=== PATIENT | male | born 1970 | race Caucasian/White ===

== ENCOUNTER 2017-03-02 20:35 | Emergency (ER) | payer BC, MEDICAID ==
[2017-03-02 21:01] VITALS: RESP 18
[2017-03-02 22:21] LABS: Basophils # (A) 0.1 k/uL (0-0.2); Basophils % (A) 1 %; CH 31.6; CHCM 34.2; Eosinophils # (A) 0.3 k/uL (0-0.7); Eosinophils % (A) 4 %; HCT 43.3 % (39.0-53.0); HDW 2.82; HGB 14.4 gm/dL (13.0-17.5); Luc # (Auto) 0.19; Luc % (Auto) 3; Lymphocytes # (A) 1.7 k/uL (1.0-4.8); Lymphocytes % (A) 25 %; MCH 30.9 pg (25.0-35.0); MCHC 33.2 g/dL (31.0-37.0); MCV 92.9 fL (80.0-100.0); Mean Platelet Volume 8.3; Monocytes # (A) 0.6 k/uL (0-1.0); Monocytes % (A) 8 %; Neutrophils % (A) 59 %; RBC 4.66 m/uL (4.30-5.90); RDW 13.8 % (11.5-15.5); WBC 6.7 k/uL (3.8-10.6); WBC (Perox) 6.48
[2017-03-02 22:28] LABS: ALT 97 U/L (21-72); AST 56 U/L (17-59); Alkaline Phosphatase 102 U/L (38-126); Anion Gap 6 mmol/L; Blood Urea Nitrogen 20 mg/dL (9-20); Calcium 8.9 mg/dL (8.4-10.2); Carbon Dioxide 29 mmol/L (22-30); Chloride 103 mmol/L (98-107); Glucose 96 mg/dL (74-99); Magnesium 2.1 mg/dL (1.6-2.3); Non-African American GFR(MDRD) >60 (>60 ml/min/1.73 sqM); Potassium 3.9 mmol/L (3.5-5.1); Sodium 138 mmol/L (137-145); Total Bilirubin 0.9 mg/dL (0.2-1.3); Total Protein 6.9 g/dL (6.3-8.2)
--- NOTE | 2017-03-02 22:31 | ED ---
General Adult HPI - General Chief complaint: Extremity Problem,Nontraumatic Stated complaint: Jaw Pain / Heart Hx Time Seen by Provider: 03/02/17 21:10 Source: patient Mode of arrival: ambulatory Limitations: no limitations - History of Present Illness Initial comments: 's patient is a 46-year-old man who presents to be evaluated for pains that were in his jaw, started a couple of hours ago. He was concerned because the pains reminded him of what he was experiencing when his thoracic aortic aneurysm was found. The patient also states he was having aches in both arms and both legs. The patient denies chest pain, diaphoresis, dyspnea, nausea or vomiting, abdominal pain. -: hour(s) Quality: aching Consistency: now resolved Improves with: none Worsens with: none Associated Symptoms: denies other symptoms Treatments Prior to Arrival: none - Related Data Home Medications Medication Instructions Recorded Confirmed Testosterone [Androgel 1% Gel Pump] 1 pump TOPICAL Q48H 07/06/16 03/02/17 Warfarin [Coumadin] 5 mg PO SUSA 07/06/16 03/02/17 Ascorbic Acid [Vitamin C] 500 mg PO DAILY 03/02/17 03/02/17 Atorvastatin [Lipitor] 40 mg PO HS 03/02/17 03/02/17 Cholecalciferol [Vitamin D3] 1,000 unit PO DAILY 03/02/17 03/02/17 Enoxaparin Sodium [Lovenox] 100 mg SQ BID 03/02/17 03/02/17 HYDROcodone/APAP 7.5-325MG [[place] 1 tab PO Q6HR PRN 03/02/17 03/02/17 7.5-325] Meloxicam [Mobic] 15 mg PO DAILY 03/02/17 03/02/17 Metoprolol Tartrate [Lopressor] 12.5 mg PO BID 03/02/17 03/02/17 Omeprazole 40 mg PO HS 03/02/17 03/02/17 Warfarin Sodium [Coumadin] 6 mg PO MOTUWETHFR 03/02/17 03/02/17 Allergies Allergy/AdvReac Type Severity Reaction Status Date / Time phenobarbital AdvReac Rapid Verified 03/02/17 21:15 Heart Rate testosterone AdvReac Swelling Verified 03/02/17 21:15 Review of Systems ROS Statement: Those systems with pertinent positive or pertinent negative responses have been documented in the HPI. ROS Other: All systems not noted in ROS Statement are negative. Constitutional: Denies: fever, chills Respiratory: Denies: cough, dyspnea Cardiovascular: Denies: chest pain, palpitations, edema Gastrointestinal: Denies: abdominal pain, nausea, vomiting Genitourinary: Denies: dysuria, hematuria Musculoskeletal: Denies: back pain Skin: Denies: rash, lesions Neurological: Denies: headache, weakness, numbness Psychiatric: Denies: anxiety Past Medical History Past Medical History: Coronary Artery Disease (CAD), GERD/Reflux, Mitral Valve Prolapse (MVP) History of Any Multi-Drug Resistant Organisms: None Reported Past Surgical History: Back Surgery, Bariatric Surgery, Bladder Surgery, Cardiac Valve Replacement, Orthopedic Surgery Additional Past Surgical History / Comment(s): BILATERAL KNEE SURGERY GASTRIC BAND SURGERY Past Anesthesia/Blood Transfusion Reactions: No Reported Reaction Past Psychological History: Anxiety Smoking Status: Never smoker Past Alcohol Use History: Occasional Past Drug Use History: None Reported General Exam Limitations: no limitations General appearance: alert, in no apparent distress Head exam: Present: atraumatic, normocephalic Eye exam: Present: normal appearance. Absent: scleral icterus, conjunctival injection ENT exam: Present: normal oropharynx Neck exam: Present: normal inspection, full ROM Respiratory exam: Present: normal lung sounds bilaterally. Absent: respiratory distress, wheezes, rales, rhonchi, stridor Cardiovascular Exam: Present: regular rate, normal rhythm, normal heart sounds. Absent: systolic murmur, diastolic murmur, rubs, gallop GI/Abdominal exam: Present: soft. Absent: distended, tenderness, guarding, rebound, mass, pulsatile mass, hernia Extremities exam: Present: normal inspection, normal capillary refill. Absent: pedal edema, calf tenderness Back exam: Present: normal inspection. Absent: CVA tenderness (R), CVA tenderness (L) Neurological exam: Present: alert. Absent: motor sensory deficit Skin exam: Present: warm, dry, intact, normal color. Absent: rash Course Vital Signs 03/02/17 03/02/17 20:57 23:35 Temperature 99.2 F 98.4 F Pulse Rate 71 72 Respiratory 18 18 Rate Blood Pressure 131/79 127/91 O2 Sat by Pulse 99 97 Oximetry EKG Findings - EKG Results: EKG: interpreted by ERMD, WNL, sinus rhythm (Rate 67 bpm), normal axis, normal QRS, normal ST/T, no acute changes Medical Decision Making - Medical Decision Making Patient remains asymptomatic. We discussed the results. Recommended stress test and the patient would like to have this done as an outpatient. Discussed return parameters as well as appropriate follow-up care. - Lab Data Result diagrams: 03/02/17 22:08 03/02/17 22:08 Lab Results 03/02/17 03/02/17 03/02/17 Range/Units 22:08 22:08 22:08 WBC 6.7 (3.8-10.6) k/uL RBC 4.66 (4.30-5.90) m/uL Hgb 14.4 (13.0-17.5) gm/dL Hct 43.3 (39.0-53.0) % MCV 92.9 (80.0-100.0) fL MCH 30.9 (25.0-35.0) pg MCHC 33.2 (31.0-37.0) g/dL RDW 13.8 (11.5-15.5) % Plt Count 144 L (150-450) k/uL Neutrophils % 59 % Lymphocytes % 25 % Monocytes % 8 % Eosinophils % 4 % Basophils % 1 % Neutrophils # 4.0 (1.3-7.7) k/uL Lymphocytes # 1.7 (1.0-4.8) k/uL Monocytes # 0.6 (0-1.0) k/uL Eosinophils # 0.3 (0-0.7) k/uL Basophils # 0.1 (0-0.2) k/uL PT (9.0-12.0) sec INR (<1.1) APTT (22.0-30.0) sec D-Dimer (<0.60) mg/L FEU Sodium 138 (137-145) mmol/L Potassium 3.9 (3.5-5.1) mmol/L Chloride 103 (98-107) mmol/L Carbon Dioxide 29 (22-30) mmol/L Anion Gap 6 mmol/L BUN 20 (9-20) mg/dL Creatinine 0.84 (0.66-1.25) mg/dL Est GFR (MDRD) Af Amer >60 (>60 ml/min/1.73 sqM) Est GFR (MDRD) Non-Af >60 (>60 ml/min/1.73 sqM) Glucose 96 (74-99) mg/dL Calcium 8.9 (8.4-10.2) mg/dL Magnesium 2.1 (1.6-2.3) mg/dL Total Bilirubin 0.9 (0.2-1.3) mg/dL AST 56 (17-59) U/L ALT 97 H (21-72) U/L Alkaline Phosphatase 102 (38-126) U/L Total Creatine Kinase 108 (55-170) U/L CK-MB (CK-2) 1.3 (0.0-2.4) ng/mL CK-MB (CK-2) Rel Index 1.2 Troponin I <0.012 (0.000-0.034) ng/mL Total Protein 6.9 (6.3-8.2) g/dL Albumin 4.1 (3.5-5.0) g/dL 03/02/17 Range/Units 22:08 WBC (3.8-10.6) k/uL RBC (4.30-5.90) m/uL Hgb (13.0-17.5) gm/dL Hct (39.0-53.0) % MCV (80.0-100.0) fL MCH (25.0-35.0) pg MCHC (31.0-37.0) g/dL RDW (11.5-15.5) % Plt Count (150-450) k/uL Neutrophils % % Lymphocytes % % Monocytes % % Eosinophils % % Basophils % % Neutrophils # (1.3-7.7) k/uL Lymphocytes # (1.0-4.8) k/uL Monocytes # (0-1.0) k/uL Eosinophils # (0-0.7) k/uL Basophils # (0-0.2) k/uL PT 17.7 H (9.0-12.0) sec INR 1.8 (<1.1) APTT 29.9 (22.0-30.0) sec D-Dimer 0.46 (<0.60) mg/L FEU Sodium (137-145) mmol/L Potassium (3.5-5.1) mmol/L Chloride (98-107) mmol/L Carbon Dioxide (22-30) mmol/L Anion Gap mmol/L BUN (9-20) mg/dL Creatinine (0.66-1.25) mg/dL Est GFR (MDRD) Af Amer (>60 ml/min/1.73 sqM) Est GFR (MDRD) Non-Af (>60 ml/min/1.73 sqM) Glucose (74-99) mg/dL Calcium (8.4-10.2) mg/dL Magnesium (1.6-2.3) mg/dL Total Bilirubin (0.2-1.3) mg/dL AST (17-59) U/L ALT (21-72) U/L Alkaline Phosphatase (38-126) U/L Total Creatine Kinase (55-170) U/L CK-MB (CK-2) (0.0-2.4) ng/mL CK-MB (CK-2) Rel Index Troponin I (0.000-0.034) ng/mL Total Protein (6.3-8.2) g/dL Albumin (3.5-5.0) g/dL Disposition Clinical Impression: Mandible pain Disposition: HOME SELF-CARE Condition: Good Instructions: Chest Pain (ED) Referrals: Bar Bender DO [Primary Care Provider] - 1-2 days
[2017-03-02 22:35] LABS: INR 1.8 (<1.1); Partial Thromboplastin Time 29.9 sec (22.0-30.0); Prothrombin Time 17.7 sec (9.0-12.0)
[2017-03-02 22:37] LABS: Creatine Kinase 108 U/L (55-170)
[2017-03-02 22:51] LABS: Creatine Kinase MB 1.3 ng/mL (0.0-2.4); Troponin I <0.012 ng/mL (0.000-0.034)
--- NOTE | 2017-03-02 22:54 | XR ---
EXAM: XR Chest, 2 Views CLINICAL HISTORY: Reason: Chest Pain TECHNIQUE: Frontal and lateral views of the chest. COMPARISON: No relevant prior studies available. FINDINGS: Lungs: Mild infrahilar opacities. No consolidation. Pleural space: Unremarkable. No pneumothorax. Heart: Cardiac silhouette within normal limits. Mediastinum: Unremarkable. Bones/joints: Unremarkable. Other findings: Postsurgical changes in the chest and upper abdomen. Air-fluid level in the stomach. IMPRESSION: Mild infrahilar opacities, possible atelectasis. No consolidation.
[2017-03-02 23:37] VITALS: BP 127/91; PULSE 72; TEMP 98.4
== END 2017-03-03 00:07 | disposition home or self-care (01) ==
LOC: EC 20:35
DX: R68.84 Jaw pain (principal); I25.10 Atherosclerotic heart disease of native coronary artery without angina pectoris; K21.9 Gastro-esophageal reflux disease without esophagitis; F41.9 Anxiety disorder, unspecified; Z79.01 Long term (current) use of anticoagulants; Z79.899 Other long term (current) drug therapy; Z79.1 Long term (current) use of non-steroidal anti-inflammatories (NSAID); Z88.8 Allergy status to other drugs, medicaments and biological substances
CPT/HCPCS: 36415; 71020; 80053; 82550; 82553; 83735; 84484; 85025; 85379; 85610; 85730; 93005; 99284

== ENCOUNTER 2017-06-20 17:43 | Observation (INO) | payer BC, MEDICAID ==
[2017-06-20] MEDS ORDERED: ASPIRIN 81 MG PO STA (18:18)
[2017-06-20] MEDS ORDERED: NITROGLYCERIN SL TABS 0.4 MG TAB SUBLINGUAL PRN ×2 (18:18→19:18)
--- NOTE | 2017-06-20 18:24 | ED ---
Chest Pain HPI - General Chief Complaint: Chest Pain Stated Complaint: chest pain, Heart Hx Time Seen by Provider: 06/20/17 18:08 Source: patient Mode of arrival: ambulatory Limitations: no limitations - History of Present Illness Initial Comments: This is a 47-year-old male with a history of uric valve replacement and thoracic aortic aneurysm who presents emergency department for chest pain. He states that started approximately one hour ago. He describes it as a sharp sensation in the middle of his chest. States that nothing seems to make it better or worse. He was not doing anything in particular when it started. It does not feel like when he was diagnosed with his aortic aneurysm. He is currently on Coumadin. Last stress test was 2 years ago. He sees a Dr. Sarah out of [facility] for cardiology. Denies any shortness of breath. No history DVT or PE. No other complaints. - Related Data Home Medications Medication Instructions Recorded Confirmed Warfarin [Coumadin] 5 mg PO SUSA 07/06/16 06/20/17 Ascorbic Acid [Vitamin C] 500 mg PO DAILY 03/02/17 06/20/17 Atorvastatin [Lipitor] 40 mg PO HS 03/02/17 06/20/17 Cholecalciferol [Vitamin D3] 1,000 unit PO DAILY 03/02/17 06/20/17 HYDROcodone/APAP 7.5-325MG [[place] 1 tab PO Q6HR PRN 03/02/17 06/20/17 7.5-325] Meloxicam [Mobic] 15 mg PO DAILY 03/02/17 06/20/17 Metoprolol Tartrate [Lopressor] 12.5 mg PO BID 03/02/17 06/20/17 Omeprazole 40 mg PO HS 03/02/17 06/20/17 Warfarin Sodium [Coumadin] 6 mg PO MOTUWETHFR 03/02/17 06/20/17 ALPRAZolam [Xanax] 0.5 mg PO BID PRN 06/20/17 06/20/17 Testosterone [Androgel 1.62% Gel 1 applic TOPICAL MOWEFR 06/20/17 06/20/17 Pump] Allergies Allergy/AdvReac Type Severity Reaction Status Date / Time phenobarbital AdvReac Hyperactivi Verified 06/20/17 18:49 ty testosterone AdvReac Joint Pain Verified 06/20/17 18:49 with Injection only Review of Systems ROS Statement: Those systems with pertinent positive or pertinent negative responses have been documented in the HPI. ROS Other: All systems not noted in ROS Statement are negative. EKG Findings - EKG Comments: EKG Findings:: EKG showing normal sinus rhythm with a rate of 62. No abnormal ST segment changes or T-wave inversions. Intervals are normal. No ectopy. Past Medical History Past Medical History: Coronary Artery Disease (CAD), GERD/Reflux, Mitral Valve Prolapse (MVP) History of Any Multi-Drug Resistant Organisms: None Reported Past Surgical History: Back Surgery, Bariatric Surgery, Bladder Surgery, Cardiac Valve Replacement, Orthopedic Surgery Additional Past Surgical History / Comment(s): BILATERAL KNEE SURGERY GASTRIC BAND SURGERY Past Anesthesia/Blood Transfusion Reactions: No Reported Reaction Past Psychological History: Anxiety Smoking Status: Never smoker Past Alcohol Use History: Occasional Past Drug Use History: None Reported General Exam - General Exam Comments Initial Comments: Constitutional: Awake alert Appears comfortable Head: Normocephalic atraumatic Eyes: no conjunctival injection No scleral icterus EOMI Neck: No JVD Supple Heart: Regular rate rhythm normal S1-S2 no murmurs Lungs: Clear to auscultation bilaterally No wheezing No rales Abdomen: Soft nondistended nontender Extremities: Non edematous DP pulses intact Radial pulses intact Neuro: A&Ox3 No focal neurologic deficits Psych: Appropriate mood and affect Limitations: no limitations Course Vital Signs 06/20/17 18:10 Temperature 98.8 F Pulse Rate 66 Respiratory 18 Rate Blood Pressure 142/77 O2 Sat by Pulse 100 Oximetry Chest Pain MDM - MDM This is a 47-year-old male with a history of thoracic AAA and aortic valve replacement who presented for chest pain. The patient's chest pain was resolved after sublingual nitro. EKG was normal. Troponin negative times one. At this time I like to keep him for further cardiac evaluation and monitoring. Spoke with Dr. Carcamo who accepts the admission. The patient family were updated and agree with plan. Disposition Clinical Impression: Unstable angina Disposition: ADMITTED IP TO THIS HOSP Condition: Stable Referrals: Bar Bender DO [Primary Care Provider] - 1-2 days
[2017-06-20 18:35] LABS: Basophils % (A) 1 %; CHCM 35.4; Eosinophils # (A) 0.2 k/uL (0-0.7); Eosinophils % (A) 4 %; HCT 38.4 % (39.0-53.0); HDW 3.38; HGB 13.7 gm/dL (13.0-17.5); Luc # (Auto) 0.15; Luc % (Auto) 3; Lymphocytes # (A) 1.9 k/uL (1.0-4.8); Lymphocytes % (A) 36 %; MCH 31.4 pg (25.0-35.0); MCHC 35.7 g/dL (31.0-37.0); MCV 87.9 fL (80.0-100.0); Mean Platelet Volume 7.9; Monocytes # (A) 0.3 k/uL (0-1.0); Monocytes % (A) 6 %; Neutrophils # (A) 2.6 k/uL (1.3-7.7); Neutrophils % (A) 50 %; RBC 4.37 m/uL (4.30-5.90); WBC 5.2 k/uL (3.8-10.6); WBC (Perox) 5.14
[2017-06-20 18:43] LABS: INR 3.9 (<1.2); Partial Thromboplastin Time 40.4 sec (22.0-30.0); Prothrombin Time 38.2 sec (9.0-12.0)
[2017-06-20 18:49] LABS: ALT 42 U/L (21-72); AST 26 U/L (17-59); Alkaline Phosphatase 76 U/L (38-126); Anion Gap 9 mmol/L; Blood Urea Nitrogen 17 mg/dL (9-20); Calcium 8.6 mg/dL (8.4-10.2); Carbon Dioxide 26 mmol/L (22-30); Chloride 106 mmol/L (98-107); Glucose 99 mg/dL (74-99); Non-African American GFR(MDRD) >60 (>60 ml/min/1.73 sqM); Potassium 3.5 mmol/L (3.5-5.1); Sodium 141 mmol/L (137-145); Total Bilirubin 0.6 mg/dL (0.2-1.3); Total Protein 6.6 g/dL (6.3-8.2)
--- NOTE | 2017-06-20 18:51 | XR ---
EXAMINATION TYPE: XR chest 2V DATE OF EXAM: 06/20/2017 COMPARISON: March 02, 2017. HISTORY: Chest pain TECHNIQUE: Frontal and lateral views of the chest are obtained. FINDINGS: There is no focal air space opacity, pleural effusion, or pneumothorax seen. The cardiac silhouette size is within normal limits. The osseous structures are intact. Sternotomy is noted. Th ere is no change in appearance of the chest. Fusion hardware is identified in lumbar spine. IMPRESSION: No acute cardiopulmonary process.
[2017-06-20 19:11] LABS: Troponin I <0.012 ng/mL (0.000-0.034)
[2017-06-20] MEDS ORDERED: HEPARIN SODIUM,PORCINE/D5W PMX 25,000 UNIT in DEXTROSE/WATER 1 500ML.BAG IV SCH (19:30)
[2017-06-20] MEDS ORDERED: RX INFO: IV CONTRAST WAS GIVEN 1 EACH MISC MISCELLANE PRN (19:32)
--- NOTE | 2017-06-20 20:47 | CT ---
EXAMINATION TYPE: CT angio thoracic/abd aorta DATE OF EXAM: 06/20/2017 COMPARISON: NONE HISTORY: Chest pain. Hx of anuerysm. CT DLP: 2407.4 mGycm. Automated Exposure Control for Dose Reduction was Utilized. CONTRAST: CT scan of the thorax, abdomen and pelvis is performed with IV Contrast, patient injected with 100 mL of Omnipaque 300. MIP images and 3-D volume rendered images of the aorta were created at a separate workstation. FINDINGS: LUNGS: The lungs are grossly clear, there is no concerning parenchymal mass or nodule identified. T here is no pleural effusion or pneumothorax seen. The tracheobronchial tree is patent. MEDIASTINUM: There are no greater than 1 cm hilar or mediastinal lymph nodes. No pericardial effusi on is seen. Artificial aortic valve is noted. Ascending aorta is slightly aneurysmal measuring 4.4 c m in diameter. OTHER: A lap band is noted surrounding the fundus of the stomach. LIVER/GB: No significant abnormality is appreciated. PANCREAS: No significant abnormality is seen. SPLEEN: No significant abnormality is seen. ADRENALS: No significant abnormality is seen. KIDNEYS: No significant abnormality is seen. BOWEL: No significant abnormality is seen. GENITAL ORGANS: No gross abnormality seen. LYMPH NODES: No greater than 1cm abdominal or pelvic lymph nodes are appreciated. OSSEOUS STRUCTURES: There is been a sternotomy. There is fusion hardware noted along the left brow as pect at the level of T12-L2. OTHER: No significant additional abnormality is seen. Infrarenal abdominal aorta is unremarkable. The origins of the celiac, inferior mesenteric, and singl e bilateral renal arteries are unremarkable. There is no significant atherosclerotic plaque. IMPRESSION: Mild aneurysmal dilatation is noted of the ascending aorta. There is no evidence of disse ction.
[2017-06-20 21:54] VITALS: BMI 38.3
[2017-06-20] MEDS ORDERED: ALPRAZolam 0.5 MG TAB PO PRN (22:03)
[2017-06-20] MEDS ORDERED: HYDROcodone/APAP 7.5-325MG 1 EACH TAB PO PRN (22:03)
--- NOTE | 2017-06-20 22:41 | P.HPIM ---
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 He presented to the emergency room with multiple episodes of sharp substernal chest pain lasting a few seconds but REcurrent and RELIEVED after receiving nitroglycerin in the emergency room. No associated symptoms of shortness of breath or dizziness or palpitations orthopnea or paroxysmal nocturnal dyspnea no syncope or presyncope . No VISUAL disturbances or LIMB weakness numbness. Denied headache or facial numbness or ataxia OR dizziness. Denied exertional chest pain or shortness of breath lately. No fever or chills OR Cough OR FEVER The chest pain is localized without radiation to the back and neck. No active reflux symptoms and no chest pain or TRAUMA. Review of Systems Constitutional: Denies as per HPI, Denies anorexia, Denies chills, Denies chronic headaches, Denies chronic pain, Denies daytime sleepiness, Denies fatigue, Denies fever, Denies lethargy, Denies malaise, Denies night sweats, Denies poor appetite, Denies sweats, Denies weakness, Denies weight gain, Denies weight loss Eyes: denies blurred vision, denies pain, denies loss of vision Ears: deny: decreased hearing, ear discharge, earache, tinnitus Ears, nose, mouth and throat: Denies as per HPI, Denies ant. neck pain, Denies bleeding gums, Denies dental pain, Denies dysphagia, Denies epistaxis, Denies headache, Denies hoarseness, Denies mouth pain, Denies nasal congestion, Denies nasal discharge, Denies neck fullness/pressure, Denies neck lump, Denies nose pain, Denies odynophagia, Denies post-nasal drip, Denies sinus pain, Denies sinus pressure, Denies swelling in mouth, Denies swelling in throat, Denies sore throat, Denies vertigo, Denies voice changes Breasts: absent: gynecomastia Cardiovascular: Reports chest pain, Denies as per HPI, Denies claudication, Denies decreased exercise tolerance, Denies dyspnea on exertion, Denies edema, Denies high blood pressure, Denies irregular heart beat, Denies leg edema, Denies lightheadedness, Denies orthopnea, Denies palpitations, Denies paroxysmal nocturnal dyspnea, Denies phlebitis, Denies rapid heart beat, Denies shortness of breath, Denies syncope Respiratory: Denies as per HPI, Denies congestion, Denies cough, Denies cough with sputum, Denies dyspnea, Denies excessive sputum, Denies hemoptysis, Denies home oxygen, Denies pain, Denies pain on inspiration, Denies pleurisy, Denies respiratory infections, Denies sleep apnea, Denies snoring, Denies wheezing Gastrointestinal: Denies as per HPI, Denies abdominal pain, Denies belching, Denies bloating, Denies BRBPR, Denies change in bowel habits, Denies coffee ground emesis, Denies constipation, Denies diarrhea, Denies dyspepsia, Denies early satiety, Denies excessive gas, Denies heartburn, Denies hematemesis, Denies hematochezia, Denies indigestion, Denies jaundice, Denies lactose intolerance, Denies loss of appetite, Denies melena, Denies nausea, Denies vomiting Genitourinary: Denies as per HPI, Denies decreased libido, Denies difficulties fathering child, Denies discharge, Denies dysuria, Denies erectile dysfunction, Denies flank pain, Denies genital pain, Denies genital sores, Denies hematuria, Denies impotence, Denies incontinence, Denies kidney stones, Denies nocturia, Denies polyuria, Denies testicular lump, Denies testicular pain, Denies urinary frequency, Denies urinary hesitancy, Denies urinary retention Musculoskeletal: Denies as per HPI, Denies arm numbness/tingling, Denies atrophy , Denies fractures, Denies frequent falls, Denies gait dysfunction, Denies hot joints, Denies leg numbness/tingling, Denies limitation of motion, Denies loss of height, Denies low back pain, Denies morning stiffness, Denies muscle cramps , Denies muscle weakness, Denies myalgias, Denies neck pain, Denies neck stiffness, Denies prior amputations, Denies redness of joints, Denies shooting arm pain, Denies shooting leg pain Integumentary: Denies as per HPI, Denies acne, Denies boils, Denies brittle nails, Denies change in hair/nails, Denies color changes, Denies darkening of skin, Denies depigmentation, Denies dryness, Denies foot/leg ulcers, Denies growths, Denies hirsutism, Denies lesions, Denies onychomycosis, Denies pruritus , Denies rash, Denies sores, Denies striae, Denies unusual bruising, Denies wounds Neurological: Denies as per HPI, Denies aphasia, Denies ataxia, Denies balance difficulties, Denies burning pain, Denies change in mentation, Denies change in smell/taste, Denies change in speech, Denies confusion, Denies convulsions, Denies double vision, Denies gait dysfunction, Denies head injury, Denies headaches, Denies hearing difficulties, Denies lack of coordination, Denies loss of vision, Denies memory loss, Denies migraines, Denies motor disturbance, Denies numbness, Denies paralysis, Denies paresthesias, Denies seizures, Denies sensory deficit, Denies spasticity, Denies syncope, Denies tic, Denies tingling , Denies transient paralysis, Denies tremors, Denies vertigo, Denies weakness, Denies visual changes Psychiatric: Denies as per HPI, Denies anhedonia, Denies anxiety, Denies anxiety attacks, Denies change in appetite, Denies change in libido, Denies change in sleep habits, Denies confusion, Denies depression, Denies difficulty concentrating, Denies disorientation, Denies hallucinations, Denies hopelessness , Denies hypersomnia, Denies insomnia, Denies irritability, Denies memory loss, Denies mood swings, Denies paranoia, Denies sadness/tearfulness, Denies sleep disturbances, Denies suicidal ideation Endocrine: Denies as per HPI, Denies cold intolerance, Denies deepening of the voice, Denies excessive sweating, Denies excessive thirst, Denies fatigue, Denies flushing, Denies heat intolerance, Denies high blood sugars, Denies increase in ring/shoe/hat size, Denies low blood sugars, Denies nocturia, Denies palpitations, Denies polydipsia, Denies polyphagia, Denies polyuria, Denies proptosis, Denies recent glucocorticoid use, Denies thyroid mass, Denies weight change Hematologic/Lymphatic: Denies as per HPI, Denies easy bleeding, Denies easy bruising, Denies lymphadenopathy, Denies lymphedema, Denies thrombophilia Allergic/Immunologic: Denies as per HPI, Denies allergic rhinitis, Denies anaphylaxis, Denies angioedema, Denies gluten intolerance, Denies persistent infections, Denies seasonal allergies, Denies urticaria, Denies wheezing 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 History of Any Multi-Drug Resistant Organisms: None Reported Past Surgical History: Back Surgery, Bariatric Surgery, Bladder Surgery, Cardiac Valve Replacement, Orthopedic Surgery Additional Past Surgical History / Comment(s): BILATERAL KNEE SURGERY GASTRIC BAND SURGERY Past Anesthesia/Blood Transfusion Reactions: No Reported Reaction Smoking Status: Never smoker - Past Family History Mother Additional Family Medical History / Comment(s): B/L knee replacement Father Family Medical History: Diabetes Mellitus Additional Family Medical History / Comment(s): cardiac issues Medications and Allergies Home Medications Medication Instructions Recorded Confirmed Type Warfarin [Coumadin] 5 mg PO SUSA 07/06/16 06/20/17 History Ascorbic Acid [Vitamin C] 500 mg PO DAILY 03/02/17 06/20/17 History Atorvastatin [Lipitor] 40 mg PO HS 03/02/17 06/20/17 History Cholecalciferol [Vitamin D3] 1,000 unit PO DAILY 03/02/17 06/20/17 History HYDROcodone/APAP 7.5-325MG [[place] 1 tab PO Q6HR PRN 03/02/17 06/20/17 History 7.5-325] Meloxicam [Mobic] 15 mg PO DAILY 03/02/17 06/20/17 History Metoprolol Tartrate [Lopressor] 12.5 mg PO BID 03/02/17 06/20/17 History Omeprazole 40 mg PO HS 03/02/17 06/20/17 History Warfarin Sodium [Coumadin] 6 mg PO MOTUWETHFR 03/02/17 06/20/17 History ALPRAZolam [Xanax] 0.5 mg PO BID PRN 06/20/17 06/20/17 History Testosterone [Androgel 1.62% Gel 1 applic TOPICAL MOWEFR 06/20/17 06/20/17 History Pump] Allergies Allergy/AdvReac Type Severity Reaction Status Date / Time phenobarbital AdvReac Hyperactivi Verified 06/20/17 21:45 ty testosterone AdvReac Joint Pain Verified 06/20/17 21:45 with Injection only Physical Exam Vitals: Vital Signs Temp Pulse Resp BP Pulse Ox 06/20/17 20:52 87 16 108/59 100 06/20/17 18:10 98.8 F 66 18 142/77 100 Intake and Output 06/20/17 06/20/17 06/20/17 06:59 14:59 22:59 Other: Weight 124.7 kg Patient Weight 06/21/17 06:59 Weight 124.7 kg - Constitutional General appearance: cooperative, no acute distress - EENT Eyes: no abnormal pupil, no anicteric sclerae, no disc margins sharp, no edentulous, no EOMI, no PERRLA, no fundus normal, no photophobia, no dentition normal, no poor dentition, no ptosis, no scleral icterus, no normal appearance ENT: no hard of hearing, no hearing grossly normal, no NA/AT, no normal oropharynx, no other, no pharyngeal erythema, no thrush, no tonsillar exudates, no tonsillar swelling Ears: bilateral: normal - Neck Neck: no lymphadenopathy, normal ROM Carotids: bilateral: upstroke normal, bruit absent Thyroid: negative: normal size, enlarged, firm, nodule - Respiratory Respiratory: bilateral: CTA, negative: dullness, rales, rhonchi, wheezing - Cardiovascular Rhythm: regular Heart sounds: normal: S1, S2 Abnormal Heart Sounds: no systolic murmur, no diastolic murmur, no rub, no S3 Gallop, no S4 Gallop, no click, no other ankle Peripheral Edema: bilateral: 1+ - Gastrointestinal General gastrointestinal: no absent bowel sounds, no decreased bowel sounds, no distended, no hepatomegaly, no hyperactive bowel sounds, no normal bowel sounds , no organomegaly, no rigid, no scaphoid, no soft, no splenomegaly, no tenderness, no umbilical hernia, no ventral hernia - Integumentary Integumentary: no calor, no cellulitis, no cyanotic, no decreased turgor, no flushed, no jaundiced, no normal, no normal turgor, no pale, no rash, no ulcer - Neurologic Neurologic: CNII-XII intact, focal deficits - Musculoskeletal Musculoskeletal: no gait normal, no generalized weakness, no right sided weakness, no left sided weakness - Psychiatric Psychiatric: A&O x's 3, appropriate affect, intact judgment & insight Results CBC & Chem 7: 06/20/17 18:27 06/20/17 18:27 Labs: Abnormal Lab Results - Last 24 Hours (Table) 06/20/17 06/20/17 Range/Units 18:27 18:27 Hct 38.4 L (39.0-53.0) % PT 38.2 H (9.0-12.0) sec INR 3.9 H (<1.2) APTT 40.4 H (22.0-30.0) sec Chest x-ray: other (no acute process, no CHF) CT scan - chest: pending, other (No aortic dissection) Thrombosis Risk Factor Assmnt - Choose All That Apply Any of the Below Risk Factors Present?: No Each Factor Represents 1 point: Age 41-60 years Thrombosis Risk Factor Assessment Total Risk Factor Score: 1 Thrombosis Risk Factor Assessment Level: Low Risk Assessment and Plan (1) Atypical chest pain Narrative/Plan: Atypical S/P [facility] 2013 : WNL Observation Cardiology consult, ?? need for stress test Chest pain protocol , serial cardiac enzymes. EKG's Echocardiogram : assess LV fx resume home therapy with B Blockers , ASA. No need for Heparin Aortic dissection was ruled out Status: Acute (2) Thoracic aortic aneurysm without rupture Narrative/Plan: s/p Repair of aortic arch CT chest : No Dissection Status: Chronic (3) Status post mechanical aortic valve replacement Status: Acute (4) Status post mechanical aortic valve replacement Narrative/Plan: done due to AV stenosis due to Bicuspid AV On Coumadin < Therapeutic/ Echo to assess LV fx and AVR Status: Chronic Plan: Observe Chest pain protocol, cardiology consult Expect 23 hrs stay Time with Patient: Greater than 30
[2017-06-20 22:42] VITALS: RESP 18
[2017-06-21 00:52] LABS: Creatine Kinase 136 U/L (55-170)
[2017-06-21 01:05] LABS: Creatine Kinase MB 1.6 ng/mL (0.0-2.4); Troponin I <0.012 ng/mL (0.000-0.034)
[2017-06-21 06:58] LABS: Cholesterol 135 mg/dL (<200); HDL Cholesterol 39 mg/dL (40-60)
[2017-06-21 07:06] LABS: Creatine Kinase 104 U/L (55-170)
[2017-06-21 07:20] LABS: Creatine Kinase MB 1.6 ng/mL (0.0-2.4); Troponin I <0.012 ng/mL (0.000-0.034)
[2017-06-21] MEDS ORDERED: AMINOPHYLLINE 500 MG/20 ML VIAL IV PRN (08:26)
[2017-06-21] MEDS ORDERED: REGADENOSON 0.4 MG/5 ML SYRINGE IV ONE (08:26)
--- NOTE | 2017-06-21 08:30 | P.CRDCN ---
History of Present Illness History of present illness: Patient interviewed and examined Precordial chest discomfort for about an hour with normal cardiac enzymes 3. 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, CT results noted Plan 2-D echo and Doppler study to assess cardiac structure and function and aortic valve Lexiscan cardiac stress test If normal he may go home and follow-up with his primary mechanical system technician at [place] Please see full dictation by OSTOMY NURSE 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 History of Any Multi-Drug Resistant Organisms: None Reported Past Surgical History: Back Surgery, Bariatric Surgery, Bladder Surgery, Cardiac Valve Replacement, Orthopedic Surgery Additional Past Surgical History / Comment(s): BILATERAL KNEE SURGERY GASTRIC BAND SURGERY Past Anesthesia/Blood Transfusion Reactions: No Reported Reaction Smoking Status: Never smoker - Past Family History Mother Additional Family Medical History / Comment(s): B/L knee replacement Father Family Medical History: Diabetes Mellitus Additional Family Medical History / Comment(s): cardiac issues Medications and Allergies Home Medications Medication Instructions Recorded Confirmed Type Warfarin [Coumadin] 5 mg PO SUSA 07/06/16 06/20/17 History Ascorbic Acid [Vitamin C] 500 mg PO DAILY 03/02/17 06/20/17 History Atorvastatin [Lipitor] 40 mg PO HS 03/02/17 06/20/17 History Cholecalciferol [Vitamin D3] 1,000 unit PO DAILY 03/02/17 06/20/17 History HYDROcodone/APAP 7.5-325MG [[place] 1 tab PO Q6HR PRN 03/02/17 06/20/17 History 7.5-325] Meloxicam [Mobic] 15 mg PO DAILY 03/02/17 06/20/17 History Metoprolol Tartrate [Lopressor] 12.5 mg PO BID 03/02/17 06/20/17 History Omeprazole 40 mg PO HS 03/02/17 06/20/17 History Warfarin Sodium [Coumadin] 6 mg PO MOTUWETHFR 03/02/17 06/20/17 History ALPRAZolam [Xanax] 0.5 mg PO BID PRN 06/20/17 06/20/17 History Testosterone [Androgel 1.62% Gel 1 applic TOPICAL MOWEFR 06/20/17 06/20/17 History Pump] Allergies Allergy/AdvReac Type Severity Reaction Status Date / Time phenobarbital AdvReac Hyperactivi Verified 06/20/17 21:45 ty testosterone AdvReac Joint Pain Verified 06/20/17 21:45 with Injection only Physical Exam Vitals: Vital Signs Temp Pulse Pulse Resp BP BP BP 06/21/17 08:00 97.7 F 54 L 18 109/62 06/21/17 04:00 98.3 F 54 L 18 118/71 06/21/17 03:39 18 06/21/17 00:00 18 06/20/17 22:40 98.3 F 55 L 18 173/75 06/20/17 22:15 16 06/20/17 20:52 87 16 108/59 06/20/17 18:10 98.8 F 66 18 142/77 Pulse Ox 06/21/17 08:00 98 06/21/17 04:00 99 06/21/17 03:39 06/21/17 00:00 06/20/17 22:40 100 06/20/17 22:15 06/20/17 20:52 100 06/20/17 18:10 100 Intake and Output 06/20/17 06/21/17 06/21/17 22:59 06:59 14:59 Other: # Voids 1 Weight 124.7 kg Results 06/20/17 18:27 06/20/17 18:27 Cardiac Enzymes 06/20/17 06/20/17 06/21/17 Range/Units 18:27 18:27 00:01 AST 26 (17-59) U/L CK-MB (CK-2) 2.0 1.6 (0.0-2.4) ng/mL Troponin I <0.012 <0.012 (0.000-0.034) ng/mL 06/21/17 Range/Units 06:21 AST (17-59) U/L CK-MB (CK-2) 1.6 (0.0-2.4) ng/mL Troponin I <0.012 (0.000-0.034) ng/mL Coagulation 06/20/17 06/21/17 Range/Units 18:27 03:04 PT 38.2 H (9.0-12.0) sec APTT 40.4 H 59.1 H (22.0-30.0) sec Lipids 06/21/17 Range/Units 06:21 Triglycerides 111 (<150) mg/dL Cholesterol 135 (<200) mg/dL HDL Cholesterol 39 L (40-60) mg/dL CBC 06/20/17 Range/Units 18:27 WBC 5.2 (3.8-10.6) k/uL RBC 4.37 (4.30-5.90) m/uL Hgb 13.7 (13.0-17.5) gm/dL Hct 38.4 L (39.0-53.0) % Plt Count 161 (150-450) k/uL Comprehensive Metabolic Panel 06/20/17 Range/Units 18:27 Sodium 141 (137-145) mmol/L Potassium 3.5 (3.5-5.1) mmol/L Chloride 106 (98-107) mmol/L Carbon Dioxide 26 (22-30) mmol/L BUN 17 (9-20) mg/dL Creatinine 0.71 (0.66-1.25) mg/dL Glucose 99 (74-99) mg/dL Calcium 8.6 (8.4-10.2) mg/dL AST 26 (17-59) U/L ALT 42 (21-72) U/L Alkaline Phosphatase 76 (38-126) U/L Total Protein 6.6 (6.3-8.2) g/dL Albumin 4.2 (3.5-5.0) g/dL Current Medications Generic Name Dose Route Start Last Admin Trade Name Freq PRN Reason Stop Dose Admin Hydrocodone Bitart/Acetaminophen 1 each 06/20/17 22:03 [place] 7.5-325 PO Q6HR PRN Pain Alprazolam 0.5 mg 06/20/17 22:03 Xanax PO BID PRN Anxiety Aminophylline 100 mg 06/21/17 08:26 Aminophylline IV ONCE PRN Patient Response Ascorbic Acid 500 mg 06/21/17 09:00 Vitamin C PO DAILY [facility] Aspirin 325 mg 06/21/17 09:00 Aspirin PO DAILY [facility] Atorvastatin Calcium 40 mg 06/21/17 21:00 Lipitor PO HS [facility] Cholecalciferol 1,000 unit 06/21/17 09:00 Vitamin D3 PO DAILY [facility] Heparin Sodium/Dextrose 25,000 500 mls @ 19.95 mls/hr 06/20/17 19:30 21:04 unit/ IV Solution IV 8 units/kg/hr .Q24H [place] 19.95 mls/hr Protocol Administration 8 UNITS/KG/HR Meloxicam 15 mg 06/21/17 09:00 Mobic PO DAILY [facility] Metoprolol Tartrate 12.5 mg 06/21/17 09:00 Lopressor PO BID [facility] Miscellaneous Information 1 each 06/20/17 19:32 Rx Info: Iv Contrast Was Given MISCELLANE 06/22/17 19:32 DAILY PRN Per Protocol Nitroglycerin 0.4 mg 06/20/17 19:18 Nitrostat SUBLINGUAL Q5M PRN Chest Pain Pantoprazole Sodium 40 mg 06/21/17 21:00 Protonix PO HS [facility] Intake and Output 06/20/17 06/21/17 06/21/17 22:59 06:59 14:59 Other: # Voids 1 Weight 124.7 kg 06/20/17 18:27 06/20/17 18:27
[2017-06-21] MEDS ORDERED: ASPIRIN 325 MG TAB PO SCH (09:00)
[2017-06-21] MEDS ORDERED: MELOXICAM 7.5 MG TAB PO SCH (09:00)
[2017-06-21] MEDS ORDERED: CHOLECALCIFEROL 1,000 UNIT TAB PO SCH (09:00)
[2017-06-21] MEDS ORDERED: ASCORBIC ACID 500 MG TAB PO SCH (09:00)
[2017-06-21] MEDS ORDERED: METOPROLOL TARTRATE 12.5 MG TAB PO SCH (09:00)
--- NOTE | 2017-06-21 10:29 | P.CRDCN ---
History of Present Illness Consult date: 06/21/17 History of present illness: This is a pleasant 47-year-old male. Past medical history significant for mitral valve prolapse, bicuspid aortic valve resulting in ascending aortic aneurysm, aortic valve replacement and gastroesophageal reflux disease. He follows regularly with Dr. Sarah at [facility]. He presented to the hospital yesterday with complaints of sharp midsternal chest pain lasting approximately one hour while sitting on the couch watching TV. He can describe no aggravating factors. He states the pain persisted until he presented to the emergency room was given sublingual nitroglycerin. At that time the pain subsided. He's had no further episodes since admission. He denies any associated symptoms of shortness of breath, nausea, dizziness, palpitations or radiation of the pain. Records were requested from his primary student services representative to assess recent testing. EKG indicates a normal sinus mechanism with no acute ST or T-wave abnormalities. Chest x-ray is negative for any acute cardiopulmonary process. Review of Systems Extensive review of systems performed, negative except mentioned in HPI. 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 History of Any Multi-Drug Resistant Organisms: None Reported Past Surgical History: Back Surgery, Bariatric Surgery, Bladder Surgery, Cardiac Valve Replacement, Orthopedic Surgery Additional Past Surgical History / Comment(s): BILATERAL KNEE SURGERY GASTRIC BAND SURGERY Past Anesthesia/Blood Transfusion Reactions: No Reported Reaction Smoking Status: Never smoker - Past Family History Mother Additional Family Medical History / Comment(s): B/L knee replacement Father Family Medical History: Diabetes Mellitus Additional Family Medical History / Comment(s): cardiac issues Medications and Allergies Home Medications Medication Instructions Recorded Confirmed Type Warfarin [Coumadin] 5 mg PO SUSA 07/06/16 06/20/17 History Ascorbic Acid [Vitamin C] 500 mg PO DAILY 03/02/17 06/20/17 History Atorvastatin [Lipitor] 40 mg PO HS 03/02/17 06/20/17 History Cholecalciferol [Vitamin D3] 1,000 unit PO DAILY 03/02/17 06/20/17 History HYDROcodone/APAP 7.5-325MG [Rodney 1 tab PO Q6HR PRN 03/02/17 06/20/17 History 7.5-325] Meloxicam [Mobic] 15 mg PO DAILY 03/02/17 06/20/17 History Metoprolol Tartrate [Lopressor] 12.5 mg PO BID 03/02/17 06/20/17 History Omeprazole 40 mg PO HS 03/02/17 06/20/17 History Warfarin Sodium [Coumadin] 6 mg PO MOTUWETHFR 03/02/17 06/20/17 History ALPRAZolam [Xanax] 0.5 mg PO BID PRN 06/20/17 06/20/17 History Testosterone [Androgel 1.62% Gel 1 applic TOPICAL MOWEFR 06/20/17 06/20/17 History Pump] Allergies Allergy/AdvReac Type Severity Reaction Status Date / Time phenobarbital AdvReac Hyperactivi Verified 06/20/17 21:45 ty testosterone AdvReac Joint Pain Verified 06/20/17 21:45 with Injection only Physical Exam Vitals: Vital Signs Temp Pulse Pulse Resp BP BP Pulse Ox 06/21/17 04:00 98.3 F 54 L 18 118/71 99 06/21/17 03:39 18 06/21/17 00:00 18 06/20/17 22:40 98.3 F 55 L 18 173/75 100 06/20/17 22:15 16 06/20/17 20:52 87 16 108/59 100 06/20/17 18:10 98.8 F 66 18 142/77 100 Intake and Output 06/20/17 06/21/17 06/21/17 22:59 06:59 14:59 Other: # Voids 1 Weight 124.7 kg GENERAL: This is a 47-year-old male in no apparent distress at the time of my examination. HEENT: Head is atraumatic, normocephalic. Pupils are equal, round. Sclerae anicteric. Conjunctivae are clear. Mucous membranes of the mouth are moist. Neck is supple. There is no jugular venous distention. No carotid bruit is heard. LUNGS: Clear to auscultation no wheezes, rales or rhonchi. No chest wall tenderness is noted on palpation or with deep breathing. HEART: Regular rate and rhythm with systolic click consistent with valve replacement. No rubs or gallops. S1 and S2 heard. ABDOMEN: Soft, nontender. Bowel sounds are heard. No organomegaly noted. EXTREMITIES: 2+ peripheral pulses with no evidence of peripheral edema and no calf tenderness noted. NEUROLOGIC: Patient is awake, alert and oriented x3. Results 06/20/17 18:27 06/20/17 18:27 Cardiac Enzymes 06/20/17 06/20/17 06/21/17 Range/Units 18:27 18:27 00:01 AST 26 (17-59) U/L CK-MB (CK-2) 2.0 1.6 (0.0-2.4) ng/mL Troponin I <0.012 <0.012 (0.000-0.034) ng/mL 06/21/17 Range/Units 06:21 AST (17-59) U/L CK-MB (CK-2) 1.6 (0.0-2.4) ng/mL Troponin I <0.012 (0.000-0.034) ng/mL Coagulation 06/20/17 06/21/17 Range/Units 18:27 03:04 PT 38.2 H (9.0-12.0) sec APTT 40.4 H 59.1 H (22.0-30.0) sec Lipids 06/21/17 Range/Units 06:21 Triglycerides 111 (<150) mg/dL Cholesterol 135 (<200) mg/dL HDL Cholesterol 39 L (40-60) mg/dL CBC 06/20/17 Range/Units 18:27 WBC 5.2 (3.8-10.6) k/uL RBC 4.37 (4.30-5.90) m/uL Hgb 13.7 (13.0-17.5) gm/dL Hct 38.4 L (39.0-53.0) % Plt Count 161 (150-450) k/uL Comprehensive Metabolic Panel 06/20/17 Range/Units 18:27 Sodium 141 (137-145) mmol/L Potassium 3.5 (3.5-5.1) mmol/L Chloride 106 (98-107) mmol/L Carbon Dioxide 26 (22-30) mmol/L BUN 17 (9-20) mg/dL Creatinine 0.71 (0.66-1.25) mg/dL Glucose 99 (74-99) mg/dL Calcium 8.6 (8.4-10.2) mg/dL AST 26 (17-59) U/L ALT 42 (21-72) U/L Alkaline Phosphatase 76 (38-126) U/L Total Protein 6.6 (6.3-8.2) g/dL Albumin 4.2 (3.5-5.0) g/dL Current Medications Generic Name Dose Route Start Last Admin Trade Name Freq PRN Reason Stop Dose Admin Hydrocodone Bitart/Acetaminophen 1 each 06/20/17 22:03 Rodney 7.5-325 PO Q6HR PRN Pain Alprazolam 0.5 mg 06/20/17 22:03 Xanax PO BID PRN Anxiety Ascorbic Acid 500 mg 06/21/17 09:00 Vitamin C PO DAILY SHERMAN Aspirin 325 mg 06/21/17 09:00 Aspirin PO DAILY [facility] Atorvastatin Calcium 40 mg 06/21/17 21:00 Lipitor PO HS [facility] Cholecalciferol 1,000 unit 06/21/17 09:00 Vitamin D3 PO DAILY [facility] Heparin Sodium/Dextrose 25,000 500 mls @ 19.95 mls/hr 06/20/17 19:30 21:04 unit/ IV Solution IV 8 units/kg/hr .Q24H SHERMAN 19.95 mls/hr Protocol Administration 8 UNITS/KG/HR Meloxicam 15 mg 06/21/17 09:00 Mobic PO DAILY [facility] Metoprolol Tartrate 12.5 mg 06/21/17 09:00 Lopressor PO BID [facility] Miscellaneous Information 1 each 06/20/17 19:32 Rx Info: Iv Contrast Was Given MISCELLANE 06/22/17 19:32 DAILY PRN Per Protocol Nitroglycerin 0.4 mg 06/20/17 19:18 Nitrostat SUBLINGUAL Q5M PRN Chest Pain Pantoprazole Sodium 40 mg 06/21/17 21:00 Protonix PO HS SHERMAN Intake and Output 06/20/17 06/21/17 06/21/17 22:59 06:59 14:59 Other: # Voids 1 Weight 124.7 kg 06/20/17 18:27 06/20/17 18:27 EKG Interpretations (text) EKG indicates a normal sinus mechanism with no acute ST or T-wave abnormality. Assessment and Plan Plan: ASSESSMENT 1. Chest pain, atypical 2. History of ascending aortic aneurysm, 4.4cm per CT 06/20/2017 3. History of aortic valve replacement on long-term anticoagulation with Coumadin 4. Mitral valve prolapse 5. Gastroesophageal reflux disease, stable 6. Dyslipidemia maintained on Lipitor daily 40 mg by mouth. PLAN Obtain 2-D echo to assess cardiac structure and function as well as aortic valve. Lexiscan cardiac stress test. If this test is the patient may go home to follow-up with his primary student services representative. Thank you kindly for this consultation. Nurse Practitioner note has been reviewed, I agree with a documented findings and plan of care. Patient was seen and examined.
[2017-06-21 11:44] VITALS: TEMP 97.6
--- NOTE | 2017-06-21 12:20 | NM ---
EXAMINATION TYPE: NM stress lexiscan cardiolite DATE OF EXAM: 06/21/2017 COMPARISON: CTA aorta from yesterday. HISTORY: Chest pain per order. History of asthma and prior heart catheterization with CABG as well as history of angina and hypercholesteremia presents with chest pain per patient. TECHNIQUE: After the intravenous administration of 10.3 mCi Tc 99m Sestamibi - Cardiolite resting SP ECT images acquired 45 minutes post injection. The patient received 0.4mg Lexiscan, 24.9 mCi Tc 99m Sestamibi - Stress images obtained [address] injection FINDINGS: Review of stress and rest SPECT images demonstrates no distinct perfusion abnormality. Gated analysi s shows normal wall motion with an estimated left ventricular ejection fraction of 63 %. IMPRESSION: No scintigraphic evidence for reversible ischemia.
--- NOTE | 2017-06-21 15:01 | EST ---
EXERCISE STRESS AGE: 47 SEX: M HT: 71" WT: 274 PROTOCOL: Lexiscan Cardiolite Stress Test HEART RATE REST: 49 BLOOD PRESSURE REST: 103/67 MAXIMUM HEART RATE ACHIEVED: 82 MAXIMUM BLOOD PRESSURE: 111/49 85% MPHR: 146 100% MPHR: 172 CLINICAL INFORMATION: Patient came in with chest discomfort. He has a history of aortic valve replacement and a dilated aortic root. He underwent Lexiscan Cardiolite stress test. Baseline heart rate 49 beats per minute. Baseline blood pressure 103/67 mmHg. Baseline 12-lead ECG showed sinus rhythm with early repolarization abnormality. Patient received Lexiscan infusion per protocol. There was no ST-segment abnormalities noted, no arrhythmias noted. Blood pressure and heart rate remained stable. Nuclear portion of stress test will be reported separately. [id number] / IJN: [id number] /
--- NOTE | 2017-06-21 15:11 | ECHOF ---
Referral Reason:chest pain , AVR mechanical MEASUREMENTS -------- HEIGHT: 180.3 cm WEIGHT: 124.3 kg BP: 118/71 RVIDd: 3.5 cm (< 3.3) IVSd: 1.2 cm (0.6 - 1.1) LVIDd: 5.3 cm (3.9 - 5.3) LVPWd: 1.3 cm (0.6 - 1.1) IVSs: 1.7 cm LVIDs: 4.0 cm LVPWs: 1.7 cm LA Diam: 4.3 cm (2.7 - 3.8) LAESV Index (A-L): 46.15 ml/m Ao Diam: 4.2 cm (2.0 - 3.7) MV EXCURSION: 9.371 mm (> 18.000) MV EF SLOPE: 31 mm/s (70 - 150) EPSS: 1.3 cm MV E Jeff: 1.26 m/s MV DecT: 212 ms MV A Jeff: 0.64 m/s MV E/A Ratio: 1.98 AV maxP.31 mmHg AV meanP.29 mmHg RAP: 5.00 mmHg RVSP: 30.70 mmHg FINDINGS -------- Sinus rhythm. This was a technically good study. The left ventricular size is normal. There is mild concentric left ventricular hypertrophy. Overall left ventricular systolic function is normal with, an EF between 60 - 65 %. The right ventricle is mildly enlarged. LA is severely dilated >40 ml/m2 The right atrium is normal in size. Peak/mean gradient across the Aortic Valve is 23.31mmHg / 11.29mmHg. There is mild jagruti-prosthetic regurgitation of the bioprosthetic aortic valve. Normally functioning mechanical prosthetic valve. Mild mitral annular calcification present. There is trace to mild mitral regurgitation. Mild tricuspid regurgitation present. Right ventricular systolic pressure is normal at < 35 mmHg. Trace/mild (physiologic) pulmonic regurgitation. The aortic root is dilated measuring 4.2cm. Normal inferior vena cava with normal inspiratory collapse consistent with estimated right atrial pressure of 5 mmHg. There is no pericardial effusion. CONCLUSIONS -------- 1. Sinus rhythm. 2. There is mild jagruti-prosthetic regurgitation of the bioprosthetic aortic valve. 3. Normally functioning mechanical prosthetic valve. 4. Mild mitral annular calcification present. 5. There is trace to mild mitral regurgitation. 6. Mild tricuspid regurgitation present. 7. Right ventricular systolic pressure is normal at < 35 mmHg. 8. Trace/mild (physiologic) pulmonic regurgitation. 9. The aortic root is dilated measuring 4.2cm. 10. Normal inferior vena cava with normal inspiratory collapse consistent with estimated right atrial pressure of 5 mmHg. 11. There is no pericardial effusion. 12. This was a technically good study. 13. The left ventricular size is normal. 14. There is mild concentric left ventricular hypertrophy. 15. Overall left ventricular systolic function is normal with, an EF between 60 - 65 %. 16. The right ventricle is mildly enlarged. 17. LA is severely dilated >40 ml/m2 18. The right atrium is normal in size. 19. Peak/mean gradient across the Aortic Valve is 23.31mmHg / 11.29mmHg. DROP TESTER: Yuli Vega RDCS
[2017-06-21 16:02] VITALS: BP 126/81; PULSE 63
--- NOTE | 2017-06-21 18:44 | P.DS ---
Providers Date of admission: 06/20/17 19:20 Expected date of discharge: 06/21/17 Attending physician: Jairo Carcamo MD Consults: 06/20/17 19:18 Consult Physician Urgent Consulting Provider: [facility] Consult Reason/Comments: Chest Pain Do you want consulting provider notified?: Yes 06/20/17 22:08 Consult Physician Routine Consulting Provider: Nickolas Roche Consult Reason/Comments: chest pain Do you want consulting provider notified?: Yes Primary care physician: Bar Bender - Discharge Diagnosis(es) (1) Atypical chest pain Status: Acute Priority: High Onset Date: ~06/20/17 (2) Status post mechanical aortic valve replacement Continue with Coumadin INR goal 2.5-3.5 dose by his eyelet punch operator Status: Acute (3) Thoracic aortic aneurysm without rupture Status: Chronic Priority: Low Onset Date: ~12/02/12 Hospital Course: 47-year-old male with past medical history significant for valvular heart disease and ascending aortic aneurysm. Patient had mechanical aortic valve replacement and currently on lifelong Coumadin. Patient presented with sudden onset midsternal chest pain sharp in nature started during rest patient unable to identify any precipitating factors. He was taken to the emergency department sublingual nitro was given which has helped subsiding the pain. EKG showed no abnormalities cardiac enzymes were negative. Patient underwent CT angiogram the chest shows stable ascending aortic aneurysm and 2-D echo of the heart was performed. Cardiology evaluated the patient Lexiscan testing was done which was negative for ischemia. Patient was seen and examined today reports complete resolution of chest pain denies any trouble breathing and was eager to go home. He tolerated the procedures above. Constitutional: vital signs stable, Not in acute distress, pleasant, conversant Lungs: Clear to auscultation bilaterally, clear to percussion, normal respiratory effort no use of accessory muscles Cardiovascular: Regular rate and rhythm, systolic murmur with mechanical click over the aortic valve region, no gallops, no rubs, no peripheral edema Gastrointestinal: Soft, no tenderness to palpation, no palpable hepatosplenomegally, bowel sounds positive, no abdominal wall hernias Extremities: No digital cyanosis or clubbing, peripheral pulses palpable and equal over bilateral radial arteries and dorsalis pedis artery, no calf muscle tenderness Psych: Alert, oriented to place, person and time More than 35 minutes were spent discharging this patient, and more than 50% of the time was spent in counseling the patient and family and in coordinating care. Patient case was discussed with cardiology who cleared the patient for discharge Pertinent Studies: Lexiscan cardiac stress test was negative CT image of the chest showed mild aneurysmal dilatation of the ascending aorta without evidence of dissection 2-D echo showed left ventricular ejection fraction of 6065% Patient Condition at Discharge: Stable Plan - Discharge Summary New Discharge Prescriptions: New Nitroglycerin Sl Tabs [Nitrostat] 0.4 mg SUBLINGUAL Q5M PRN tab PRN Reason: Chest Pain Continue Warfarin [Coumadin] 5 mg PO SUSA HYDROcodone/APAP 7.5-325MG [Buxton 7.5-325] 1 tab PO Q6HR PRN PRN Reason: Pain Cholecalciferol [Vitamin D3] 1,000 unit PO DAILY Meloxicam [Mobic] 15 mg PO DAILY Atorvastatin [Lipitor] 40 mg PO HS Ascorbic Acid [Vitamin C] 500 mg PO DAILY Omeprazole 40 mg PO HS Metoprolol Tartrate [Lopressor] 12.5 mg PO BID Warfarin Sodium [Coumadin] 6 mg PO MOTUWETHFR ALPRAZolam [Xanax] 0.5 mg PO BID PRN PRN Reason: Anxiety Testosterone [Androgel 1.62% Gel Pump] 1 applic TOPICAL MOWEFR Discharge Medication List Warfarin [Coumadin] 5 mg PO SUSA 07/06/16 [History] Ascorbic Acid [Vitamin C] 500 mg PO DAILY 03/02/17 [History] Atorvastatin [Lipitor] 40 mg PO HS 03/02/17 [History] Cholecalciferol [Vitamin D3] 1,000 unit PO DAILY 03/02/17 [History] HYDROcodone/APAP 7.5-325MG [Buxton 7.5-325] 1 tab PO Q6HR PRN 03/02/17 [History] Meloxicam [Mobic] 15 mg PO DAILY 03/02/17 [History] Metoprolol Tartrate [Lopressor] 12.5 mg PO BID 03/02/17 [History] Omeprazole 40 mg PO HS 03/02/17 [History] Warfarin Sodium [Coumadin] 6 mg PO MOTUWETHFR 03/02/17 [History] ALPRAZolam [Xanax] 0.5 mg PO BID PRN 06/20/17 [History] Testosterone [Androgel 1.62% Gel Pump] 1 applic TOPICAL MOWEFR 06/20/17 [History ] Nitroglycerin Sl Tabs [Nitrostat] 0.4 mg SUBLINGUAL Q5M PRN tab 06/21/17 [Rx] Follow up Appointment(s)/Referral(s): Nickolas Roche MD [STAFF PHYSICIAN] - 1 Week (Appointment made for @ 6:15pm.) Bar Bender DO [Primary Care Provider] - 1-2 days Patient Instructions/Handouts: Chest Pain (GEN) Activity/Diet/Wound Care/Special Instructions: limited activity diet heart healthy Discharge Disposition: HOME SELF-CARE
[2017-06-21] MEDS ORDERED: PANTOPRAZOLE 40 MG TABLET PO SCH (21:00)
[2017-06-21] MEDS ORDERED: ATORVASTATIN 40 MG TAB PO SCH (21:00)
[2017-06-21] MEDS ORDERED: TESTOSTERONE TOPICAL SCH (22:03)
== END 2017-06-21 16:28 | disposition home or self-care (01) ==
LOC: EC 17:43 → 3SUR 19:20 → 3OBS 06-21 07:08
PROVIDERS: ADMIT Internal Medicine; ATTEND Internal Medicine
DX: R07.89 Other chest pain (principal); R07.2 Precordial pain; I34.1 Nonrheumatic mitral (valve) prolapse; Z95.2 Presence of prosthetic heart valve; I71.2 Thoracic aortic aneurysm, without rupture; Q23.1 Congenital insufficiency of aortic valve; E78.5 Hyperlipidemia, unspecified; K21.9 Gastro-esophageal reflux disease without esophagitis; F41.9 Anxiety disorder, unspecified; I25.10 Atherosclerotic heart disease of native coronary artery without angina pectoris; Z98.84 Bariatric surgery status; Z79.01 Long term (current) use of anticoagulants; Z79.899 Other long term (current) drug therapy; Z79.1 Long term (current) use of non-steroidal anti-inflammatories (NSAID); Z88.8 Allergy status to other drugs, medicaments and biological substances; Z83.3 Family history of diabetes mellitus
CPT/HCPCS: 99285; 96365; 96366 ×2; 36415; 93005; 93017; 93306; 80061; 80053; 82550; 82553 ×2; 83735; 84484 ×2; 85025; 85610; 85730 ×2; 71020; 75635; 71275; 78452; G0378 ×2; A9500; J1644; Q9967; J2785

== ENCOUNTER 2017-11-09 21:35 | Emergency (ER) | payer BC, MEDICAID ==
--- NOTE | 2017-11-09 22:40 | ED ---
SOB HPI - General Chief Complaint: Shortness of Breath Stated Complaint: SHOBHA Time Seen by Provider: 11/09/17 22:00 Source: patient Mode of arrival: ambulatory Limitations: no limitations - History of Present Illness Initial Comments: Oriented years old male comes in with a shortness of breath he had flulike symptoms since Wednesday, he had a fever or chills she had me been coughing and now he gets short-winded especially with exertion he denies chest pain but he does Admit to have a slight chest pain with deep breaths. He does have a history of for aortic valve disease a he has a prosthetic metallic valve in place now and he does have a history of asthma as well as dyslipidemia he has been pretty compliant with his Coumadin he has no history of coronary artery disease no history of any DVT or PE in the past. Review of system is unremarkable otherwise - Related Data Home Medications Medication Instructions Recorded Confirmed Warfarin [Coumadin] 5 mg PO SUMOSA 07/06/16 11/09/17 Ascorbic Acid [Vitamin C] 500 mg PO DAILY 03/02/17 11/09/17 Atorvastatin [Lipitor] 40 mg PO HS 03/02/17 11/09/17 Meloxicam [Mobic] 15 mg PO DAILY 03/02/17 11/09/17 Metoprolol Tartrate [Lopressor] 12.5 mg PO BID 03/02/17 11/09/17 Omeprazole 40 mg PO HS 03/02/17 11/09/17 Warfarin Sodium [Coumadin] 6 mg PO TUWETHFR 03/02/17 11/09/17 Testosterone [Androgel 1.62% Gel 1 applic TOPICAL MOWEFR 06/20/17 11/09/17 Pump] Albuterol Nebulized [Ventolin 2.5 mg INHALATION RT-QID PRN 11/09/17 11/09/17 Nebulized] Albuterol Sulfate [Proair Hfa] 2 puff INHALATION RT-Q6H PRN 11/09/17 11/09/17 Potassium 99 mg PO DAILY 11/09/17 11/09/17 Previous Rx's Medication Instructions Recorded Nitroglycerin Sl Tabs [Nitrostat] 0.4 mg SUBLINGUAL Q5M PRN tab 06/21/17 Albuterol Inhaler [Ventolin Hfa 2 puff INHALATION Q6HR PRN #1 11/10/17 Inhaler] inhaler Allergies Allergy/AdvReac Type Severity Reaction Status Date / Time phenobarbital AdvReac Hyperactivi Verified 11/09/17 21:54 ty testosterone AdvReac Joint Pain Verified 11/09/17 21:54 with Injection only Review of Systems ROS Statement: Those systems with pertinent positive or pertinent negative responses have been documented in the HPI. ROS Other: All systems not noted in ROS Statement are negative. 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 History of Any Multi-Drug Resistant Organisms: None Reported Past Surgical History: Back Surgery, Bariatric Surgery, Bladder Surgery, Cardiac Valve Replacement, Orthopedic Surgery Additional Past Surgical History / Comment(s): BILATERAL KNEE SURGERY GASTRIC BAND SURGERY, aortic valve replacement Past Anesthesia/Blood Transfusion Reactions: No Reported Reaction Past Psychological History: Anxiety Smoking Status: Never smoker Past Alcohol Use History: Occasional Past Drug Use History: None Reported - Past Family History Mother Additional Family Medical History / Comment(s): B/L knee replacement Father Family Medical History: Diabetes Mellitus Additional Family Medical History / Comment(s): cardiac issues General Exam - General Exam Comments Initial Comments: General: The patient is awake and alert, in no distress, and does not appear acutely ill. Skin: Skin is warm and dry and no rashes or lesions are noted. Eye: Pupils are equal, round and reactive to light, extra-ocular movements are intact; there is normal conjunctiva bilaterally. Ears, nose, mouth and throat: There are moist mucous membranes and no oral lesions. Neck: The neck is supple, there is no tenderness or JVD. Cardiovascular: There is a regular rate and rhythm. No murmur, rub or gallop is appreciated. Respiratory: To auscultation bilateral, some secretions in the airway is mild wheezing Gastrointestinal: Soft, non-distended, non-tender abdomen without masses or organomegaly noted. There is no rebound or guarding present. Bowel sounds are unremarkable. Back: There is no tenderness to palpation in the midline. There is no obvious deformity. Musculoskeletal: Normal ROM, no tenderness, There is no pedal edema. There is no calf tenderness or swelling. No cords were appreciated. Neurological: CN II-XII intact, Cranial nerves III through XII are intact. There are no obvious motor or sensory deficits. Coordination appears grossly intact. Speech is normal. Psychiatric: Cooperative, appropriate mood & affect, normal judgment. Limitations: no limitations Course Vital Signs 11/09/17 11/09/17 21:41 22:15 Temperature 98.3 F Pulse Rate 79 Respiratory 18 20 Rate Blood Pressure 143/79 O2 Sat by Pulse 95 Oximetry EKG is normal sinus rhythm ventricular rate is 73 GA interval is 164 QRS duration is 90 QT is QT/QTC 372/4 and Review of this EKG does not reveal any ST elevation or ST depression or any signs of any ischemic heart disease. Patient was reassessed at couple minutes after midnight care, his troponin, EKG , chest x-ray, d-dimer are all unremarkable he is on a Coumadin for his heart valve disease he status post aortic valve his INR is 3.6 and his flu a is positive since his symptoms have been ongoing for about 4 days now he is not a candidate for inpatient antiviral therapy and he is not any candidate for any antibacterial therapy either he be gone home on a Ventolin/albuterol inhaler 2 puffs every 6 hours and he will follow with his family doctor Medical Decision Making - Lab Data Result diagrams: 11/09/17 22:30 11/09/17 22:30 Lab Results 11/09/17 11/09/17 11/09/17 Range/Units 22:30 22:30 22:30 WBC 4.8 (3.8-10.6) k/uL RBC 4.41 (4.30-5.90) m/uL Hgb 13.9 (13.0-17.5) gm/dL Hct 41.0 (39.0-53.0) % MCV 92.9 (80.0-100.0) fL MCH 31.5 (25.0-35.0) pg MCHC 33.9 (31.0-37.0) g/dL RDW 13.6 (11.5-15.5) % Plt Count 127 L (150-450) k/uL Neutrophils % 64 % Lymphocytes % 22 % Monocytes % 7 % Eosinophils % 5 % Basophils % 1 % Neutrophils # 3.1 (1.3-7.7) k/uL Lymphocytes # 1.1 (1.0-4.8) k/uL Monocytes # 0.3 (0-1.0) k/uL Eosinophils # 0.2 (0-0.7) k/uL Basophils # 0.0 (0-0.2) k/uL PT (9.0-12.0) sec INR (<1.2) APTT (22.0-30.0) sec D-Dimer (<0.60) mg/L FEU Sodium 141 (137-145) mmol/L Potassium 3.9 (3.5-5.1) mmol/L Chloride 104 (98-107) mmol/L Carbon Dioxide 28 (22-30) mmol/L Anion Gap 9 mmol/L BUN 12 (9-20) mg/dL Creatinine 0.80 (0.66-1.25) mg/dL Est GFR (MDRD) Af Amer >60 (>60 ml/min/1.73 sqM) Est GFR (MDRD) Non-Af >60 (>60 ml/min/1.73 sqM) Glucose 106 H (74-99) mg/dL Calcium 8.5 (8.4-10.2) mg/dL Total Bilirubin 0.6 (0.2-1.3) mg/dL AST 43 (17-59) U/L ALT 48 (21-72) U/L Alkaline Phosphatase 116 (38-126) U/L Total Creatine Kinase 213 H (55-170) U/L CK-MB (CK-2) 1.6 (0.0-2.4) ng/mL CK-MB (CK-2) Rel Index 0.8 Troponin I 0.013 (0.000-0.034) ng/mL Total Protein 6.2 L (6.3-8.2) g/dL Albumin 3.8 (3.5-5.0) g/dL Influenza Type A RNA (Not Detectd) Influenza Type B (PCR) (Not Detectd) 11/09/17 11/09/17 Range/Units 22:30 22:46 WBC (3.8-10.6) k/uL RBC (4.30-5.90) m/uL Hgb (13.0-17.5) gm/dL Hct (39.0-53.0) % MCV (80.0-100.0) fL MCH (25.0-35.0) pg MCHC (31.0-37.0) g/dL RDW (11.5-15.5) % Plt Count (150-450) k/uL Neutrophils % % Lymphocytes % % Monocytes % % Eosinophils % % Basophils % % Neutrophils # (1.3-7.7) k/uL Lymphocytes # (1.0-4.8) k/uL Monocytes # (0-1.0) k/uL Eosinophils # (0-0.7) k/uL Basophils # (0-0.2) k/uL PT 32.0 H (9.0-12.0) sec INR 3.6 H (<1.2) APTT 39.0 H (22.0-30.0) sec D-Dimer 0.24 (<0.60) mg/L FEU Sodium (137-145) mmol/L Potassium (3.5-5.1) mmol/L Chloride (98-107) mmol/L Carbon Dioxide (22-30) mmol/L Anion Gap mmol/L BUN (9-20) mg/dL Creatinine (0.66-1.25) mg/dL Est GFR (MDRD) Af Amer (>60 ml/min/1.73 sqM) Est GFR (MDRD) Non-Af (>60 ml/min/1.73 sqM) Glucose (74-99) mg/dL Calcium (8.4-10.2) mg/dL Total Bilirubin (0.2-1.3) mg/dL AST (17-59) U/L ALT (21-72) U/L Alkaline Phosphatase (38-126) U/L Total Creatine Kinase (55-170) U/L CK-MB (CK-2) (0.0-2.4) ng/mL CK-MB (CK-2) Rel Index Troponin I (0.000-0.034) ng/mL Total Protein (6.3-8.2) g/dL Albumin (3.5-5.0) g/dL Influenza Type A RNA Detected H (Not Detectd) Influenza Type B (PCR) Not Detected (Not Detectd) Disposition Clinical Impression: Dyspnea, Influenza Disposition: HOME SELF-CARE Condition: Good Instructions: Acute Bronchitis (ED) Prescriptions: Albuterol Inhaler [Ventolin Hfa Inhaler] 2 puff INHALATION Q6HR PRN #1 inhaler PRN Reason: Shortness Of Breath Referrals: Bar Bender DO [Primary Care Provider] - 1-2 days
[2017-11-09 22:42] LABS: Basophils % (A) 1 %; Eosinophils # (A) 0.2 k/uL (0-0.7); Eosinophils % (A) 5 %; HGB 13.9 gm/dL (13.0-17.5); Lymphocytes # (A) 1.1 k/uL (1.0-4.8); Lymphocytes % (A) 22 %; MCH 31.5 pg (25.0-35.0); MCHC 33.9 g/dL (31.0-37.0); MCV 92.9 fL (80.0-100.0); Mean Platelet Volume 7.6; Monocytes # (A) 0.3 k/uL (0-1.0); Monocytes % (A) 7 %; Neutrophils # (A) 3.1 k/uL (1.3-7.7); Neutrophils % (A) 64 %; Platelet Count 127 k/uL (150-450); RBC 4.41 m/uL (4.30-5.90); RDW 13.6 % (11.5-15.5); WBC 4.8 k/uL (3.8-10.6)
[2017-11-09 22:54] LABS: D-Dimer 0.24 mg/L FEU (<0.60); INR 3.6 (<1.2)
[2017-11-09 22:57] LABS: ALT 48 U/L (21-72); AST 43 U/L (17-59); Albumin 3.8 g/dL (3.5-5.0); Alkaline Phosphatase 116 U/L (38-126); Anion Gap 9 mmol/L; Blood Urea Nitrogen 12 mg/dL (9-20); Calcium 8.5 mg/dL (8.4-10.2); Carbon Dioxide 28 mmol/L (22-30); Chloride 104 mmol/L (98-107); Glucose 106 mg/dL (74-99); Potassium 3.9 mmol/L (3.5-5.1); Sodium 141 mmol/L (137-145); Total Bilirubin 0.6 mg/dL (0.2-1.3); Total Protein 6.2 g/dL (6.3-8.2)
[2017-11-09 23:07] LABS: Creatine Kinase MB 1.6 ng/mL (0.0-2.4); Troponin I 0.013 ng/mL (0.000-0.034)
--- NOTE | 2017-11-09 23:18 | XR ---
EXAMINATION TYPE: XR chest 2V DATE OF EXAM: 11/09/2017 COMPARISON: 06/20/2017 HISTORY: Cough and congestion TECHNIQUE: Frontal and lateral views of the chest are obtained. FINDINGS: Heart and mediastinum are normal. Lungs are clear. Costophrenic angles are clear. There ar e sternal wires. There is cardiac valve prosthesis. Bony thorax appears intact. IMPRESSION: No active cardiopulmonary disease. No change.
[2017-11-10 00:27] VITALS: BP 131/77; PULSE 76; RESP 18; TEMP 97.5
== END 2017-11-10 00:25 | disposition home or self-care (01) ==
LOC: EC 21:35
DX: J11.1 Influenza due to unidentified influenza virus with other respiratory manifestations (principal); K21.9 Gastro-esophageal reflux disease without esophagitis; Z95.2 Presence of prosthetic heart valve; Z98.890 Other specified postprocedural states; Z79.01 Long term (current) use of anticoagulants; Z79.1 Long term (current) use of non-steroidal anti-inflammatories (NSAID); Z79.899 Other long term (current) drug therapy; Z88.8 Allergy status to other drugs, medicaments and biological substances
CPT/HCPCS: 36415; 71046; 80053; 82550; 82553; 84484; 85025; 85379; 85610; 85730; 87502; 93005; 99285

== ENCOUNTER → 2018-09-28 | Outpatient (CLI) | payer BC, MEDICAID | END | disposition home or self-care (01) | LOC: RADMRIMAIN 14:02 | PROVIDERS: ATTEND Family Medicine | DX: Z53.9 Procedure and treatment not carried out, unspecified reason (principal) ==

== ENCOUNTER → 2018-09-30 | Outpatient (CLI) | payer BC, MEDICAID ==
--- NOTE | 2018-10-01 21:59 | MR ---
EXAMINATION TYPE: MR lumbar spine wo con DATE OF EXAM: 09/30/2018 COMPARISON: None HISTORY: LBP, radiates into rt buttock, hx surgery 2013 CONTRAST: 0 mL intravenous Gadavist. TECHNIQUE: Multiplanar, multisequence images of the lumbar spine were acquired. FINDINGS: L5-S1: Disc height is preserved. No focal disc herniation or significant disc bulge is evident. No sp inal canal stenosis present. Mild left facet hypertrophy is present. Neural foramen are patent. L4-L5: Minimal disc bulge is present. No significant thecal sac contact is evident. Mild facet hypert rophy is present. No spinal canal stenosis or neural foraminal stenosis is present. L3-L4: No significant disc bulge is evident. No spinal canal stenosis or neural foraminal stenosis is present. L2-L3: Mild disc bulge has anterior thecal sac contact. No spinal canal stenosis is present. This may be slightly greater towards the right foramen. This may have right nerve root contact. Correlate wit h the radicular symptoms. Left foramen is widely patent. Postsurgical change with susceptibility bong fact is present within the lumbar spine. L1-L2: Minimal disc bulge is present. Foramen are patent. No spinal canal stenosis is present. Some f acet hypertrophy is present on the right with mild posterior lateral thecal sac compression. T12-L1: The L1 vertebral body has a compression deformity. No posterior wall displacement is evident. However, posterior wall has moderate anterior thecal sac flattening at the T12-L1 level. Facet hyper trophy is present. AP spinal canal stenosis is not present. No foraminal stenosis on the right is maya dent. Severe foraminal stenosis is present on the left. IMPRESSION: 1. There appears be an old compression deformity at T12 without posterior wall displacement. However, the superior endplate does have moderate anterior thecal sac flattening through this level. 2. Severe left foraminal stenosis T12-L1. 3. Disc bulging towards the right foramen at the L2-L3 level.
== END | disposition home or self-care (01) ==
LOC: RADMRIMAIN 19:58
PROVIDERS: ATTEND Family Medicine
DX: M99.73 Connective tissue and disc stenosis of intervertebral foramina of lumbar region (principal); M51.16 Intervertebral disc disorders with radiculopathy, lumbar region
CPT/HCPCS: 72148

== ENCOUNTER → 2018-10-18 | Outpatient (CLI) | payer BC, MEDICAID ==
--- NOTE | 2018-10-18 09:57 | MR ---
Thoracic spine MRI HISTORY: Pain, M 54.6, M 53.84 Multiplanar multisequence imaging through the thoracic spine. Correlation chest x-ray 11/09/2017 Multilevel Schmorl's node formation is present to include the superior endplates of T7, T8, inferior endplates of T7, T8 and T9, there is a small hemangioma present within the T9 vertebral body. Mild an terior wedging is present at T7, T8 and T9. No significant retropulsion, central canal stenosis, or f oraminal encroachment. There is a mild S-shaped spinal curvature. Susceptibility artifact partially o bscures the T12 vertebral body. Loss of disc height and signal is present at T12-L1 with endplate dis cogenic marrow signal change, loss of disc height signal present at intervertebral levels to include T5-6, T7-8, T8-9 and T9-10, T10-11. There is a mild kyphosis centered at T8. Facet arthropathy change s are present especially at the lower thoracic spine. Thoracic cord signal is normal. Minimal posteri or disc bulge is noted in the right paracentral location at T2-3, T3-4, T5-6 causing only minimal ant erior mass effect on the thecal sac. At T12-L1 there is posterior extension of endplate disc complex causing anterior mass effect on the thecal sac. Lateral extension encroaches towards the left neural foramen, question nerve sheath diverticulum on the left at T12-L1. 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 There is a hiatal hernia present. IMPRESSION: Degenerative disc disease, multilevel Schmorl's node formation, spinal curvature, facet a rthropathy. No significant spinal stenosis. Visualized thoracic aorta appears aneurysmal. Additional findings above.
== END | disposition home or self-care (01) ==
LOC: RADMRIMAIN 07:23
PROVIDERS: ATTEND Family Medicine
DX: M51.34 Other intervertebral disc degeneration, thoracic region (principal); M51.44 Schmorl's nodes, thoracic region; M43.8X4 Other specified deforming dorsopathies, thoracic region; M46.84 Other specified inflammatory spondylopathies, thoracic region; I71.2 Thoracic aortic aneurysm, without rupture; K44.9 Diaphragmatic hernia without obstruction or gangrene
CPT/HCPCS: 72146

== ENCOUNTER → 2018-11-17 | Outpatient (CLI) | payer BC, MEDICAID ==
--- NOTE | 2018-11-17 22:37 | MR ---
EXAMINATION TYPE: MR shoulder LT wo con DATE OF EXAM: 11/17/2018 COMPARISON: None HISTORY: Pain in left shoulder TECHNIQUE: Multiplanar, multisequence imaging of the left shoulder is performed without contrast. FINDINGS: Rotator Cuff: There is increased signal adjacent to the supraspinatus tendon. Small amount of fluid i s in the subacromial bursa extending towards the subdeltoid bursa. No signal transversing the suprasp inatus tendon is evident. There is fluid surrounding the subscapularis tendon. Small amount fluid is in the bicipital groove around the long head of the biceps tendon. Findings are suggestive for modera te tendinosis of the subscapularis, supraspinatus tendons and long head of the biceps tendon. Acromioclavicular Joint: Mild hypertrophy is present. Minimal inferior spurring is present. Glenohumeral Joint: Humerus articulates with the glenoid. Some thinning of the articular cartilage ma y be present. Labrum: There is some increased signal within the substance of the superior glenoid labrum. Some inte rnal derangement may be present. SLAP lesion could be considered. Communication through the articular surface may be seen on a few anterior images. Biceps Tendon: The long head of biceps is in normal location within bicipital groove. Small amount fl uid is present suggestive of mild tendinosis. Bone marrow signal: No focal abnormal marrow signal is appreciated. Other: Mild joint fluid is present. IMPRESSION: Findings suggestive for tendinosis of the subscapularis, supraspinatus and to a mild degree long head biceps tendon. Some osteoarthritic degenerative change may be present. Small tear of the anterior nieves perior glenoid labrum may be present.
== END ==
LOC: RADMRIMAIN 17:50
PROVIDERS: ATTEND Family Medicine
DX: M25.512 Pain in left shoulder (principal)

== ENCOUNTER → 2018-11-29 | Outpatient (CLI) | payer BC, MEDICAID ==
[2018-11-29 14:16] VITALS: BP 136/86; PULSE 79; RESP 16; TEMP 98.3; BMI 39.2
--- NOTE | 2018-11-29 17:13 | P.BASOAP ---
Subjective Progress Note Date: 11/29/18 Principal diagnosis: Morbid obesity Patient here today to discuss alternatives to LAP-BAND. Patient's band was recently emptied. He was having bad reflux. Doing better at this time without any reflux currently. Patient I previously discussed possible gastric bypass. He remains interested in that procedure. Objective - Vital Signs Vital signs: Vital Signs Temp 98.3 F 11/29/18 14:09 Pulse 79 11/29/18 14:09 Resp 16 11/29/18 14:09 BP 136/86 11/29/18 14:09 Pulse Ox Intake & Output 11/28/18 11/29/18 11/29/18 18:59 06:59 18:59 Weight 127.459 kg - Exam Abdomen: Soft, nontender, nondistended Assessment/Plan (1) Morbid obesity Narrative/Plan: Clinical scenario again discussed with the patient and his . Patient remains interested in gastric bypass. Will refer to Dr. Garcia for evaluation of gastric bypass. We'll have the billers's review the patient's insurance and determine coverage. Plan: Date: 11/29/18 Initial Weight: 127.459 kg Initial BMI: 39.2 Current Weight: 127.459 kg Current BMI: 39.2 Type of Surgery: Total Volume in Band: 5 Previous Volume: Volume Removed: Volume Added: Band Size:
== END | disposition home or self-care (01) ==
LOC: BARWHC3 13:49
PROVIDERS: ATTEND Surgery
DX: E66.01 Morbid (severe) obesity due to excess calories (principal); Z68.39 Body mass index [BMI] 39.0-39.9, adult
CPT/HCPCS: 99211

== ENCOUNTER → 2019-01-24 | Outpatient (CLI) | payer BC, MEDICAID ==
[2019-01-24 14:56] VITALS: BP 142/83; PULSE 69; TEMP 98.1; BMI 40.4
--- NOTE | 2019-01-24 16:01 | P.BASOAP ---
Subjective Progress Note Date: 01/24/19 Principal diagnosis: Morbid obesity Patient returns today after last visit in November. Patient had recent back surgery. Patient was thinking his band was emptied when he was seen last time in the office however upon reviewing recent records it looks like the patient's band was loosened from 6.9-6.7 mL last fall because of reflux symptoms. He and I discussed possibly converting to gastric bypass however the patient would like to hold off on that and retry the band at this time particularly given his recent back surgery. Patient says he feels little restriction. No heartburn currently. Objective - Vital Signs Vital signs: Vital Signs Temp 98.1 F 01/24/19 14:52 Pulse 69 01/24/19 14:52 Resp BP 142/83 01/24/19 14:52 Pulse Ox Intake & Output 01/23/19 01/24/19 01/24/19 18:59 06:59 18:59 Weight 127.913 kg - Exam Abdomen: Soft, nontender, nondistended Assessment/Plan (1) Morbid obesity Narrative/Plan: Will proceed with band adjustment at this time. Patient will contact me if he develops any recurrent heartburn symptoms. The patient's lap band port was palpated. The site was aseptically prepped. The Chen needle was advanced into the port. A total of 0.2 ml of fluid was added for a total of 6.9. Pressure was held and a sterile dressing was applied. Plan: Date: 01/24/19 Initial Weight: 127.459 kg Initial BMI: 40.3 Current Weight: 127.913 kg Current BMI: 40.4 Type of Surgery: Total Volume in Band: 6.9 Previous Volume: Volume Removed: Volume Added: 0.2 Band Size:
== END | disposition home or self-care (01) ==
LOC: BARWHC3 13:44
PROVIDERS: ATTEND Surgery
DX: E66.01 Morbid (severe) obesity due to excess calories (principal); Z68.41 Body mass index [BMI] 40.0-44.9, adult; Z98.84 Bariatric surgery status
CPT/HCPCS: 99212

== ENCOUNTER → 2019-03-14 | Outpatient (CLI) | payer BC, MEDICAID ==
--- NOTE | 2019-03-14 14:04 | P.BASOAP ---
Subjective Progress Note Date: 03/14/19 Principal diagnosis: Morbid obesity Patient doing well at this time. His band was filled in January from 6.7 up to 6.9. Doing well at this time. Denies heartburn. No dysphagia. Would like another 0.2 mL added. Objective - Exam Abdomen: Soft, nontender, nondistended Assessment/Plan (1) Morbid obesity Narrative/Plan: Patient doing well at this time. Requesting lap band fill. We'll add 0.2 for a total of 7.1 mL. Of note is tighter than where he had his GERD symptoms last year.The patient's lap band port was palpated. The site was aseptically prepped. The Chen needle was advanced into the port. A total of 0.2 ml of fluid was added. Pressure was held and a sterile dressing was applied. Plan: Date: Initial Weight: 127.459 kg Initial BMI: Current Weight: Current BMI: Type of Surgery: Total Volume in Band: 6.9 Previous Volume: Volume Removed: Volume Added: Band Size:
[2019-03-15 09:30] VITALS: BP 145/86; PULSE 74; TEMP 98.2; BMI 40.7
== END | disposition home or self-care (01) ==
LOC: BARWHC3 12:58
PROVIDERS: ATTEND Surgery
DX: Z46.51 Encounter for fitting and adjustment of gastric lap band (principal); E66.01 Morbid (severe) obesity due to excess calories
CPT/HCPCS: 99212

== ENCOUNTER → 2019-03-28 | Outpatient (CLI) | payer BC, MEDICAID ==
[2019-03-28 14:16] VITALS: BP 133/82; PULSE 68; TEMP 98.5; BMI 39.3
--- NOTE | 2019-03-28 14:37 | P.BASOAP ---
Subjective Progress Note Date: 03/28/19 Principal diagnosis: Morbid obesity Patient here today for follow-up. Would like a band adjustment. He was concerned that his band system could be leaking. Last visit he had 0.2 added for a total of 6.9 mL. Objective - Vital Signs Vital signs: Vital Signs Temp 98.5 F 03/28/19 14:12 Pulse 68 03/28/19 14:12 Resp BP 133/82 03/28/19 14:12 Pulse Ox Intake & Output 03/27/19 03/28/19 03/28/19 18:59 06:59 18:59 Weight 124.284 kg - Exam Abdomen: Soft, nontender, nondistended Assessment/Plan (1) Morbid obesity Narrative/Plan: Patient's band was aspirated and a sterile manner. All 6.9 mL was present. An additional 0.2 was added for a total of 7.1. Follow-up 1-2 months. Plan: Date: 03/28/19 Initial Weight: 127.459 kg Initial BMI: 40.3 Current Weight: 124.284 kg Current BMI: 39.3 Type of Surgery: Total Volume in Band: 7.3 Previous Volume: Volume Removed: Volume Added: 0.2 Band Size:
== END ==
LOC: BARWHC3 13:34
PROVIDERS: ATTEND Surgery
DX: E66.01 Morbid (severe) obesity due to excess calories (principal); Z68.39 Body mass index [BMI] 39.0-39.9, adult
CPT/HCPCS: 99212

== ENCOUNTER 2019-05-16 06:18 | Observation (INO) | payer BC, MEDICAID ==
--- NOTE | 2019-05-15 08:43 | HP ---
HISTORY AND PHYSICAL CHIEF COMPLAINT: Left knee pain. 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 He is having a difficult time with weightbearing activities. He notes intermittent giving way. He has tried injections in addition, he has had previous arthroscopy. PAST MEDICAL HISTORY: Significant for heart disease, hypercholesterolemia and arthritis. PAST SURGICAL HISTORY: Significant for aortic valve replacement, lumbar surgery, wrist surgery, previous bilateral knee surgery, and lap banding. CURRENT MEDICATIONS: 1. AndroGel. 2. Coumadin. 3. Lipitor. 4. Metoprolol. 5. Mobic. 6. [place]. He has allergies to PHENOBARBITAL. FAMILY HISTORY: Noncontributory. SOCIAL HISTORY: Negative for current tobacco or alcohol use. REVIEW OF SYSTEMS: A 16-point review of systems otherwise reviewed and is noncontributory. PHYSICAL EXAMINATION: The patient is approximately 5 foot 11, 280 pounds of endomorphic habitus. HEENT: Exam is nonfocal. NECK: Supple. He has painless passive motion of his left hip. Straight leg raise is negative. Active motion left knee -8 to 125 degrees of flexion. He is tender about the medial joint line. He has mild effusion. Collaterals are stable, Debbie is negative, Breana's is equivocal. He has genu varum alignment. His distal neurovascular exam appears intact in the left lower extremity. Previous weightbearing, notch, lateral and Merchant views of the left knee obtained in the office show severe medial compartment narrowing. IMPRESSION: 1. Left knee severe medial compartment osteoarthrosis. 2. History of aortic valve replacement, on anticoagulation. 3. Obesity. RECOMMENDATIONS: I talked to the patient at length regarding his condition along with treatment options. At this point, he is quite limited because of pain related to his osteoarthrosis despite extensive conservative measures. After thorough discussion, he opts to proceed with surgery. We will plan to proceed with left total knee arthroplasty. We will reinstitute his Coumadin postoperatively. Risks and benefits were discussed at length in layman's terms. MMODL / IJN: [id number] /
[~2019-05-16 06:18] MED LIST: ACETAMINOPHEN TAB 500 MG TAB PO ONE; DEXAMETHASONE SOD PHOSPHATE 10 MG/ML 1 ML VIAL IV ONE; MELOXICAM 7.5 MG TAB PO ONE; MIDAZOLAM 2 MG/2 ML VIAL IV PRN; ONDANSETRON 4 MG/2 ML VIAL IVP ONE; SCOPOLAMINE 1.5MG/72HR PATCH TRANSDERM ONE; TRANEXAMIC ACID 1,000 MG in SODIUM CHLORIDE 0.9% 100 ML IVPB ONE; ceFAZolin 3 GM in SODIUM CHLORIDE 0.9% 100 ML IVPB ONE
[2019-05-16] MEDS ORDERED: LIDOCAINE 1% 20 ML VIAL (10MG/ML) FOR IV START INTRADERMA ONE (06:54)
[2019-05-16] MEDS ORDERED: LACTATED RINGERS 1,000 ML IV ONE ×4 (06:54→11:11)
[2019-05-16 07:15] LABS: Partial Thromboplastin Time 32.3 sec (22.0-30.0); Prothrombin Time 10.3 sec (9.0-12.0)
[2019-05-16] MEDS ORDERED: PROPOFOL 10 MG/ML 20 ML VIAL IV ONE (08:00)
[2019-05-16] MEDS ORDERED: fentaNYL (PF) 50 MCG/ML 2 ML AMP ONE (08:00)
[2019-05-16] MEDS ORDERED: SODIUM CHLORIDE 0.9% 100 ML BAG ONE (08:00)
[2019-05-16] MEDS ORDERED: TRANEXAMIC ACID 1,000 MG/10 ML VIAL ONE (08:00)
[2019-05-16] MEDS ORDERED: SUCCINYLCHOLINE CHLORIDE 100 MG/5 ML SYR IV ONE (08:00)
[2019-05-16] MEDS ORDERED: MIDAZOLAM 2 MG/2 ML VIAL ONE (08:00)
[2019-05-16] MEDS ORDERED: HYDROmorphone (PF) 1 MG/ML ONE (08:00)
[2019-05-16] MEDS ORDERED: ROPIVACAINE 246.25 MG, EPINEPHrine 0.5 MG, KETOROLAC 30 MG, cloNIDine HCL/PF 80 MCG, WA... MISCELLANE ONE ×5 (08:14)
[2019-05-16] MEDS ORDERED: ceFAZolin 3,000 MG in SODIUM CHLORIDE 0.9% IRRIGATIO 3,000 ML IRRIGATION ONE (08:32)
[2019-05-16] MEDS ORDERED: ACETAMINOPHEN TAB 325 MG TAB PO PRN (10:19)
[2019-05-16] MEDS ORDERED: HYDROcodone/APAP 7.5-325MG 1 EACH TAB PO PRN (10:19)
[2019-05-16] MEDS ORDERED: NALOXONE 0.4 MG/ML 1 ML VIAL IV PRN (10:19)
[2019-05-16] MEDS ORDERED: traMADol 50 MG TAB PO PRN (10:19)
[2019-05-16] MEDS ORDERED: HYDROmorphone 0.5 MG/0.5 ML SYRINGE IVP PRN (10:19)
[2019-05-16] MEDS ORDERED: MAGNESIUM HYDROXIDE 2,400 MG/10 ML CUP PO PRN (10:19)
[2019-05-16] MEDS ORDERED: ONDANSETRON 4 MG/2 ML VIAL IVP PRN (10:19)
--- NOTE | 2019-05-16 10:33 | P.OP ---
Date of Procedure: 05/16/19 Preoperative Diagnosis: Left knee severe tricompartmental osteoarthrosis Postoperative Diagnosis: Same Procedure(s) Performed: Left total knee arthroplastycruciate retainingcemented Implants: [employer] journeyed 2 size 8 cemented femoral component, size 7 cemented tibial component, 11 mm articular surface, 35 mm cemented patellar component. This is a cruciate retaining implant. Anesthesia: GETA, local Surgeon: Lorenzo Salazar Estimated Blood Loss (ml): 50 Pathology: other (Bone fragments) Condition: stable Disposition: PACU Indications for Procedure: The patient's a 48-year-old male presents with progressive left knee pain secondary to osteoarthrosis despite conservative measures. A discussion of the risks and benefits of operative intervention versus continued conservative measures was made with patient. He opted proceed with surgery. Operative risks to include infection, neurovascular injury, development of blood clots, fracture, possible component loosening, possible component failure need for subsequent procedures was discussed. Informed consent was obtained. Operative Findings: As below Description of Procedure: The patient was brought to the operating room, and after induction of spinal anesthesia the left lower extremity was prepped and draped in a normal fashion. The tourniquet was inflated to 270 mmHg. A longitudinal incision extending 3 finger breaths above the superior pole of the patella extending to the medial aspect the tibial tubercle was then made. The skin and subcutaneous tissues were divided sharply. Electrocautery was used for hemostasis. A medial parapatellar arthrotomy was then performed. The medial soft tissues to include the superficial and deep portions of the medial collateral ligament as well as the medial hamstring tendons were elevated subperiosteally. The proximal medial tibia osteophytes were carefully removed. The patella was everted. The knee was flexed. A portion of the retropatellar fat pad was excised sharply. The anterior cruciate ligament was sacrificed. A starting hole was made in the distal femur 1 cm anterior to the posterior cruciate origin. An intramedullary femoral guide was gently inserted planning on 5 valgus distal cut with 9 mm distal resection. The cutting block was pinned in place. The distal cut was then made. The posterior referencing sizing guide was utilized. 3 of exter nal rotation was built into the system and verified off the trans-epicondylar axis and the posterior condyles. I felt size 8 was most appropriate. The cutting block was pinned in place. The anterior, posterior, and chamfer cuts were then made. The bone fragments were removed. The trial size 8 femoral component was then placed and was fully seated. There was good anterior to posterior and medial to lateral fit. The distal peg holes were then drilled. The trial component was then removed. Attention was then paid towards preparing the proximal tibia. An extra medullary guide was utilized in line with the tibial shaft and second metatarsal distally. A 3 posterior slope was planned. I planned on 2 mm resection from the medial compartment. The cutting block was pinned in place. The proximal tibial cut was then made. The bone was removed in one fragment. The remnants of the medial and lateral menisci were excised the capsule junction with electrocautery. The tibia sized most appropriately at size 7. The posterior osteophytes off the distal femur were carefully removed with a curved osteotome. The trial tibial and femoral components were placed along with a 11 millimeters articular surface. I was able to obtain full flexion and extension with good stability with varus and valgus stress. After several flexion and extension cycles, the tibial rotation was marked with electrocautery in line with the medial one third of the tibial tubercle. Attention was then paid towards preparing the patella. A patella reamer was utilized taking this down to 14 mm of bone stock. A good flush cut was made. The patella sized most appropriately at 35 millimeters. The peg holes were then drilled. The trial component was placed. The knee was taken through a range of motion. I had good patellofemoral tracking with no hands technique. The trial components were then removed. The tibia was prepared in the appropriate rotation with appropriate drill and keel punch. The flexion and extension gaps were checked and felt to be symmetric. The posterior soft tissues were injected with ropivacaine. The bony surfaces were prepared with pulsatile lavage and dried. The deep tibial component was then cemented in place and was fully seated. Excess cement was removed. The femoral component was cemented in place and was fully seated. Again excess cement was removed. The trial 11 millimeters surface was then inserted in the knee was put in full extension. The patella component was cemented in place. After the cement had sufficiently hardened, the knee was again taken through a range of motion. Again there was good stability in flexion and extension with varus and valgus stress. The trial articular surface was then removed. The final articular surface was placed and was impacted. Care was taken to avoid any soft tissue interposition. Pulsatile lavage was again utilized. The tourniquet was deflated with approximately 80 minutes total tourniquet time. There was minimal drainage therefore a deep drain was not placed. The medial parapatellar arthrotomy was then closed with #2 Ethibond suture. The subcutaneous tissues were reapproximated interrupted 2- 0 Vicryl sutures. The skin was reapproximated with 3-0 subarticular strata fix suture. Skin tape and adhesive was applied. A sterile dressing was applied. The patient was then awoken from sedation and transferred to recovery room in good condition. Blood loss was estimated at 50 milliliters. No complications were incurred. Sponge and needle counts were correct at the end the case. Pierce MORRISON assisted during the major components this case to include exposure, bone resection, and implantation.
[2019-05-16] MEDS: HYDROmorphone 0.5 MG/0.5 ML SYRINGE IVP PRN ×3 (10:45→14:31)
[2019-05-16] MEDS ORDERED: MEPERIDINE 50 MG/ML SYRINGE IVP ONE ×2 (10:58→12:05)
--- NOTE | 2019-05-16 11:29 | XR ---
EXAMINATION TYPE: XR knee limited LT DATE OF EXAM: 05/16/2019 CLINICAL HISTORY: Left knee pain and arthritis status post total knee replacement. TECHNIQUE: Portable AP and crosstable lateral views of the left knee are obtained immediately postop eratively. COMPARISON: None FINDINGS: Metallic hardware from total left knee arthroplasty is seen and appears satisfactory in al ignment and position. There is evidence of recent surgery with diffuse subcutaneous gas, and percuta neous suprapatellar surgical drain noted. IMPRESSION: METALLIC HARDWARE FROM TOTAL LEFT KNEE ARTHROPLASTY IS SATISFACTORY IN ALIGNMENT.
[2019-05-16] MEDS: LACTATED RINGERS 1,000 ML IV SCH (14:42)
[2019-05-16 15:00] VITALS: BMI 38.5
[2019-05-16] MEDS: ceFAZolin 3 GM in SODIUM CHLORIDE 0.9% 100 ML IVPB SCH ×2 (15:29→23:26)
[2019-05-16] MEDS ORDERED: ALBUTEROL NEBULIZED 2.5 MG/3 ML INHALATION PRN (17:00)
--- NOTE | 2019-05-16 17:11 | P.CONS ---
History of Present Illness - Reason for Consult Consult date: 05/16/19 Coumadin therapy Requesting physician: Lorenzo Salazar - Chief Complaint left knee pain - History of Present Illness Patient is a 48-year-old male with a history of bicuspid aortic valve status post mechanical aortic valve replacement, hypertension, GERD, asthma, shortness sleep apnea, and arthritis who presented for elective left total knee arthroplasty. Patient tolerated procedure well without any immediate postoperative complications. We are consulted for Coumadin management. Patient seen and examined at bedside. He was doing well prior to surgery. He has tried multiple things to help his left knee pain including to scopes as well as multiple injections. His left knee pain continued to worsen and he therefore decided to undergo a left total knee replacement. He denies any recent cough, cold, fever, flu, nausea, vomiting, diarrhea, chest pain, or palpitations. He sees Dr. Preciado out of [place] for cardiology. He was told to do Lovenox bridging, his last dose of Coumadin was almost a week ago. He has been taking his Lovenox appropriately. He has had some increasing bruising. Review of Systems Pertinent positives and negatives as discussed in HPI, a complete review of systems was performed and all other systems are negative. 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 CPAP use. Hx DVT right leg 2 yrs ago. Hx pneumonia a long time ago. 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 Father Family Medical History: Diabetes Mellitus Additional Family Medical History / Comment(s): Cardiac issues. Medications and Allergies Home Medications Medication Instructions Recorded Confirmed Type Warfarin [Coumadin] 5 mg PO SUMOWEFRSA 07/06/16 05/09/19 History Ascorbic Acid [Vitamin C] 500 mg PO DAILY 03/02/17 05/09/19 History Atorvastatin [Lipitor] 40 mg PO HS 03/02/17 05/09/19 History Meloxicam [Mobic] 15 mg PO DAILY 03/02/17 05/09/19 History Metoprolol Tartrate [Lopressor] 12.5 mg PO BID 03/02/17 05/09/19 History Omeprazole 40 mg PO BID 03/02/17 05/09/19 History Testosterone [Androgel 1.62% Gel 1 applic TOPICAL MOWEFR 06/20/17 05/09/19 History Pump] Nitroglycerin Sl Tabs [Nitrostat] 0.4 mg SUBLINGUAL Q5M PRN tab 06/21/17 05/09/19 Rx Albuterol Inhaler [Ventolin Hfa 2 puff INHALATION Q6HR PRN #1 11/10/17 05/09/19 Rx Inhaler] inhaler Cholecalciferol (Vitamin D3) 500 unit PO DAILY 05/09/19 05/09/19 History [Vitamin D3] Warfarin [Coumadin] 2.5 mg PO TUTH 05/09/19 05/09/19 History Enoxaparin [Lovenox] 100 mg SQ Q12H 05/16/19 05/16/19 History Allergies Allergy/AdvReac Type Severity Reaction Status Date / Time phenobarbital AdvReac Hyperactivi Verified 05/09/19 11:40 ty testosterone AdvReac Joint Pain Verified 05/09/19 11:40 with Injection only Physical Exam Osteopathic Statement: *. No significant issues noted on an osteopathic structural exam other than those noted in the History and Physical/Consult. Vitals: Vital Signs Temp Pulse Pulse Resp BP Pulse Ox 05/16/19 15:38 16 05/16/19 14:48 98.5 F 86 131/86 96 05/16/19 14:07 60 16 141/77 97 05/16/19 13:37 58 L 16 122/71 98 05/16/19 13:15 58 L 16 154/78 98 05/16/19 12:44 62 18 145/77 98 05/16/19 12:14 64 16 162/73 98 05/16/19 11:59 148/80 05/16/19 11:55 62 16 165/90 100 05/16/19 11:33 65 16 169/90 100 05/16/19 11:18 67 16 161/83 100 05/16/19 11:00 66 16 176/83 100 05/16/19 10:50 66 16 171/84 100 05/16/19 10:35 97 F L 70 16 174/84 99 05/16/19 06:42 97.8 F 82 18 164/88 97 Intake and Output 05/16/19 05/16/19 05/16/19 06:59 14:59 22:59 Intake Total 600 1451 Output Total 150 Balance 600 1301 Intake: IV 600 1451 Output: Estimated Blood Loss 150 General: non toxic, no distress due to pain, appears at stated age, Derm: no unusual rashes/lesions no unusual ecchymoses, warm, dry Head: atraumatic, normocephalic, symmetric Eyes: EOMI, no lid lag, anicteric sclera, pupils equal round reactive to light ENT: Nose and ears atraumatic, no thrush, no pharyngeal erythema Neck: No thyromegaly, no cervical lymphadenopathy, trachea midline, supple Mouth: no lip lesion, mucus membranes moist Cardiovascular: S1S2 reg with systolic click murmur, positive posterior tibial pulse bilateral, no edema, capillary refill less than 2 seconds Lungs: CTA bilateral, no rhonchi, no rales , no accessory muscle use Abdominal: soft, nontender to palpation, no guarding, no appreciable organomegaly, normal bowel sounds Ext: no gross muscle atrophy, muscle strength 5 out of 5 in upper extremities grossly, no contractures, left knee with dressing in place Neuro: CN II-XI grossly intact, light touch intact all 4 extremities, finger to nose within normal limits, Psych: Alert, oriented, appropriate affect Results Labs: Abnormal Lab Results - Last 24 Hours (Table) 05/16/19 Range/Units 06:51 APTT 32.3 H (22.0-30.0) sec Assessment and Plan Assessment: Patient is a 48-year-old male status post left total knee arthroplasty Mechanical aortic valve with subtherapeutic Coumadin coagulopathy -First dose of Coumadin today, continue with Lovenox twice a day -Repeat PT/INR in a.m. -We will need repeat PT/INR every 48 hours 2 through home health with results to Dr. Parra for Coumadin monitoring. After patient has to therapeutic INRs of greater than 2.5 he can stop Lovenox. GERD -PPI twice a day Dyslipidemia -Statin SHADI -CPAP History DVT -On therapeutic Lovenox dosing due to mechanical aortic valve Chronic: Arthritis, memory impairment Thank you for allowing us to participate in the care of this patient. Do not hesitate to contact us with questions. Someone can be reached from the [facility] hospitalist group at all hours of the day at [phone].
[2019-05-16] MEDS ORDERED: WARFARIN 5 MG TAB PO ONE (18:00)
[2019-05-16] MEDS: PANTOPRAZOLE 40 MG TABLET PO SCH (18:01)
[2019-05-16] MEDS ORDERED: ENOXAPARIN 40 MG/0.4 ML SYRINGE SQ STA (20:25)
[2019-05-16] MEDS: HYDROcodone/APAP 7.5-325MG 1 EACH TAB PO PRN (20:40)
[2019-05-16] MEDS: METOPROLOL TARTRATE 12.5 MG TAB PO SCH (20:41)
[2019-05-16] MEDS ORDERED: ENOXAPARIN 100 MG/ML SYRINGE SQ SCH (21:00)
[2019-05-16] MEDS ORDERED: SENNOSIDES-DOCUSATE SODIUM 1 EACH TAB PO SCH (21:00)
[2019-05-16] MEDS ORDERED: ATORVASTATIN 40 MG TAB PO SCH (21:00)
[2019-05-17 00:55] VITALS: RESP 16
[2019-05-17] MEDS: LACTATED RINGERS 1,000 ML IV SCH (02:44)
[2019-05-17] MEDS: HYDROcodone/APAP 7.5-325MG 1 EACH TAB PO PRN ×2 (05:37→11:47)
[2019-05-17 07:40] VITALS: BP 133/78; PULSE 91; TEMP 98.5
[2019-05-17 07:45] LABS: INR 1.1 (<1.2); Prothrombin Time 11.6 sec (9.0-12.0)
[2019-05-17 07:59] LABS: Basophils % (A) 0 %; Eosinophils % (A) 1 %; HCT 30.4 % (39.0-53.0); Lymphocytes # (A) 1.1 k/uL (1.0-4.8); Lymphocytes % (A) 15 %; MCH 29.6 pg (25.0-35.0); MCHC 32.6 g/dL (31.0-37.0); MCV 90.8 fL (80.0-100.0); Monocytes # (A) 0.5 k/uL (0-1.0); Monocytes % (A) 6 %; Neutrophils % (A) 77 %; Platelet Count 149 k/uL (150-450); RBC 3.35 m/uL (4.30-5.90); RDW 15.5 % (11.5-15.5); WBC 7.7 k/uL (3.8-10.6)
[2019-05-17] MEDS: PANTOPRAZOLE 40 MG TABLET PO SCH (08:16)
[2019-05-17] MEDS: METOPROLOL TARTRATE 12.5 MG TAB PO SCH (08:16)
[2019-05-17] MEDS: ceFAZolin 3 GM in SODIUM CHLORIDE 0.9% 100 ML IVPB SCH (08:16)
[2019-05-17 08:25] LABS: HGB 9.9 gm/dL (13.0-17.5)
[2019-05-17] MEDS ORDERED: ENOXAPARIN 40 MG/0.4 ML SYRINGE SQ SCH (09:00)
[2019-05-17] MEDS ORDERED: CHOLECALCIFEROL 1,000 UNIT TAB PO SCH (09:00)
[2019-05-17] MEDS ORDERED: ENOXAPARIN 100 MG/ML SYRINGE SQ SCH (09:00)
--- NOTE | 2019-05-17 11:21 | P.PN ---
Subjective Progress Note Date: 05/17/19 Principal diagnosis: Status post left total knee arthroplasty Patient evaluated at bedside today, his resting comfortably. Pain is well- controlled at this time. He is waiting to ambulate with physical therapy. Denies any chest pain or shortness of breath. Patient interested in going home today if possible. Objective - Vital Signs Vital signs: Vital Signs Temp 98.5 F 05/17/19 07:00 Pulse 91 05/17/19 07:00 Resp 16 05/17/19 07:00 BP 133/78 05/17/19 07:00 Pulse Ox 96 05/17/19 07:00 Intake & Output 05/16/19 05/17/19 05/17/19 18:59 06:59 18:59 Intake Total 1451 Output Total 575 470 Balance 876 -470 Intake: IV 1451 Output: Drainage 70 Left Knee 70 Urine 425 400 Estimated Blood Loss 150 Other: Voiding Method Toilet - Exam Left lower extremity: Incision is clean, dry, and intact. The exofin fusion tape is in good condition. There is minimal soft tissue swelling and ecchymosis surrounding the medial and lateral aspects of the incision. Calf is soft, no tenderness with palpation. Plantar flexion, dorsiflexion, EHL, FHL are intact. Sensory exam to light touch throughout the extremity is intact, dorsal pedis pulses 2+. - Labs CBC & Chem 7: 05/17/19 06:49 Labs: Abnormal Lab Results - Last 24 Hours (Table) 05/17/19 Range/Units 06:49 RBC 3.35 L (4.30-5.90) m/uL Hgb 9.9 L D (13.0-17.5) gm/dL Hct 30.4 L (39.0-53.0) % Plt Count 149 L (150-450) k/uL Assessment and Plan Plan: Assessment: Postop day #1 status post left total knee arthroplasty Plan: Pain control, plan for discharge on Badger and tramadol GI and DVT prophylaxis, patient normally takes Coumadin, he's been on Lovenox injections since being off Coumadin. We'll resume Lovenox and Coumadin until INR is therapeutic. INR checks will be ordered for her 2 days Wound care instructions discussed, icing and elevating techniques discussed Home physical therapy and nursing after discharge Medical recommendations discharge planning: Hopeful discharged home today Time with Patient: Less than 30
--- NOTE | 2019-05-17 11:53 | P.PN ---
Subjective Progress Note Date: 05/17/19 Principal diagnosis: knee pain Patient is a 48-year-old male with a history of bicuspid aortic valve status post mechanical aortic valve replacement, hypertension, GERD, asthma, shortness sleep apnea, and arthritis who presented for elective left total knee arthroplasty. Patient tolerated procedure well without any immediate postoperative complications. Patient seen and examined at bedside. He is feeling well today. Pain is well controlled. Denies any chest pain, shortness breath, nausea, vomiting, is passing gas and bowel movements. Again discussed in detail need for Coumadin and Lovenox bridging. Per his inside wireman he'll take 7.5 mg of Coumadin nightl y for the next 2 days and then we will repeat INR. Objective - Vital Signs Vital signs: Vital Signs Temp 98.5 F 05/17/19 07:00 Pulse 91 05/17/19 07:00 Resp 16 05/17/19 07:00 BP 133/78 05/17/19 07:00 Pulse Ox 96 05/17/19 07:00 Intake & Output 05/16/19 05/17/19 05/17/19 18:59 06:59 18:59 Intake Total 1451 Output Total 575 470 Balance 876 -470 Intake: IV 1451 Output: Drainage 70 Left Knee 70 Urine 425 400 Estimated Blood Loss 150 Other: Voiding Method Toilet - Exam General: non toxic, no distress, appears at stated age Derm: warm, dry Head: atraumatic, normocephalic, symmetric Eyes: EOMI, no lid lag, anicteric sclera Mouth: no lip lesion, mucus membranes moist Cardiovascular: S1S2 reg with systolic ejection click murmur, positive posterior tibial pulse bilateral, Lungs: CTA bilateral, no rhonchi, no rales , no accessory muscle use Abdominal: soft, nontender to palpation, no guarding, no appreciable organomegaly Ext: dressing over left knee, no gross muscle atrophy, no edema, no contractures Neuro: CN II-XI grossly intact, no focal neuro deficits Psych: Alert, oriented, appropriate affect - Labs CBC & Chem 7: 05/17/19 06:49 Labs: Abnormal Lab Results - Last 24 Hours (Table) 05/17/19 Range/Units 06:49 RBC 3.35 L (4.30-5.90) m/uL Hgb 9.9 L D (13.0-17.5) gm/dL Hct 30.4 L (39.0-53.0) % Plt Count 149 L (150-450) k/uL Assessment and Plan Assessment: Patient is a 48-year-old male status post left total knee arthroplasty Mechanical aortic valve with subtherapeutic Coumadin coagulopathy -Coumadin 7.5 mg daily for the next 2 days and resume normal dosing -Was given order to have INR drawn and every 48 hours [address] Elsie Santana. -Patient to call if having any increased bleeding. GERD -Omeprazole Dyslipidemia -Statin SHADI -CPAP History DVT -On therapeutic Lovenox dosing due to mechanical aortic valve Chronic: Arthritis, memory impairment Medically stable for discharge at the discretion of orthopedic surgery.
[2019-05-17] MEDS ORDERED: WARFARIN 5 MG TAB PO ONE (18:00)
== END 2019-05-17 14:01 | disposition home health service (06) ==
LOC: OR 06:18 → 4SSUR 10:28 → OR 20:31 → 4SSUR 20:32
PROVIDERS: ADMIT Orthopaedic Surgery; ATTEND Orthopaedic Surgery
DX: M17.12 Unilateral primary osteoarthritis, left knee (principal); K21.9 Gastro-esophageal reflux disease without esophagitis; J45.909 Unspecified asthma, uncomplicated; I10 Essential (primary) hypertension; G47.33 Obstructive sleep apnea (adult) (pediatric); E78.5 Hyperlipidemia, unspecified; M19.90 Unspecified osteoarthritis, unspecified site; R41.3 Other amnesia; E78.00 Pure hypercholesterolemia, unspecified; E66.9 Obesity, unspecified; Z68.38 Body mass index [BMI] 38.0-38.9, adult; D62 Acute posthemorrhagic anemia; R79.1 Abnormal coagulation profile; T45.515A Adverse effect of anticoagulants, initial encounter; G89.29 Other chronic pain; M54.9 Dorsalgia, unspecified; Z95.2 Presence of prosthetic heart valve; Z86.718 Personal history of other venous thrombosis and embolism; Z99.89 Dependence on other enabling machines and devices; Z87.01 Personal history of pneumonia (recurrent); Z98.84 Bariatric surgery status; Z79.01 Long term (current) use of anticoagulants; Z79.899 Other long term (current) drug therapy; Z79.1 Long term (current) use of non-steroidal anti-inflammatories (NSAID); Z88.8 Allergy status to other drugs, medicaments and biological substances; Z79.891 Long term (current) use of opiate analgesic; Z83.3 Family history of diabetes mellitus; Z82.69 Family history of other diseases of the musculoskeletal system and connective tissue; Z82.49 Family history of ischemic heart disease and other diseases of the circulatory system
CPT/HCPCS: 27447; 94660 ×2; 97161; 85025; 85610 ×2; 85730; 88300; 73560; G0378 ×2; C1713; C1776; J2250; J0171; J1100; J2175; J0690 ×3; J2405; J1650 ×2; J3010; J1885; J1170 ×2; J2795; J0330; J2704; J0735

== ENCOUNTER 2019-05-26 19:13 | Inpatient (IN) | payer BC, MEDICAID ==
[2019-05-26] MEDS ORDERED: ASPIRIN 81 MG PO STA (19:55)
[2019-05-26] MEDS ORDERED: MORPHINE SULFATE 4 MG/ML SYRINGE IV STA (19:55)
[2019-05-26 20:27] LABS: ALT 46 U/L (21-72); AST 25 U/L (17-59); African American GFR (CKD) >90 (>60 ml/min/1.73 sqM); Albumin 3.5 g/dL (3.5-5.0); Alkaline Phosphatase 185 U/L (38-126); Anion Gap 9 mmol/L; Blood Urea Nitrogen 14 mg/dL (9-20); Calcium 8.8 mg/dL (8.4-10.2); Carbon Dioxide 29 mmol/L (22-30); Chloride 98 mmol/L (98-107); Glucose 122 mg/dL (74-99); Potassium 3.9 mmol/L (3.5-5.1); Sodium 136 mmol/L (137-145); Total Bilirubin 2.4 mg/dL (0.2-1.3); Total Protein 6.4 g/dL (6.3-8.2)
[2019-05-26 20:30] LABS: Anisocytosis Slight; Basophils # (A) 0.1 k/uL (0-0.2); Basophils % (A) 1 %; Eosinophils # (A) 0.2 k/uL (0-0.7); Eosinophils % (A) 2 %; HCT 27.2 % (39.0-53.0); HGB 8.7 gm/dL (13.0-17.5); Hypochromasia Moderate; Lymphocytes # (A) 1.3 k/uL (1.0-4.8); Lymphocytes % (A) 10 %; MCH 28.9 pg (25.0-35.0); MCHC 32.1 g/dL (31.0-37.0); MCV 90.1 fL (80.0-100.0); Mean Platelet Volume 7.2; Monocytes # (A) 0.8 k/uL (0-1.0); Monocytes % (A) 6 %; Neutrophils # (A) 10.7 k/uL (1.3-7.7); Neutrophils % (A) 81 %; Poikilocytosis Moderate; RBC 3.02 m/uL (4.30-5.90); RDW 17.2 % (11.5-15.5); WBC 13.3 k/uL (3.8-10.6)
[2019-05-26 20:34] LABS: Platelet Count 423 k/uL (150-450)
--- NOTE | 2019-05-26 20:37 | CT ---
EXAMINATION TYPE: CT chest angio for PE DATE OF EXAM: 05/26/2019 COMPARISON: HISTORY: Difficulty breathing and chest pain. CT DLP: 625.5 mGycm Automated exposure control for dose reduction was used. CONTRAST: CT Chest for pulmonary embolism performed with with IV Contrast, patient injected with 84ml mL of Iso anastacio 370. There are 3-D post processed images. FINDINGS: The lungs are clear of consolidation. There is mild scarring or subsegmental atelectasis at the left lung base. There is no pleural effusion. There is gastric sleeve noted. Heart size is normal. There i s no pericardial effusion. Thoracic aorta shows no aneurysm or dissection. There is cardiac valve surgery. I see no filling defects in the pulmonary arteries. There is suboptimal contrast density in the small er branches of the pulmonary arteries. There is mild anterior wedging of several lower thoracic verte bra unchanged compared to 06/20/2017. IMPRESSION: No evidence of pulmonary embolism. No active cardiopulmonary disease.
[2019-05-26 20:50] LABS: INR 2.3 (<1.2); Partial Thromboplastin Time 47.1 sec (22.0-30.0); Prothrombin Time 22.4 sec (9.0-12.0)
[2019-05-26 20:51] LABS: D-Dimer 4.37 mg/L FEU (<0.60)
[2019-05-26] MEDS ORDERED: NALOXONE 0.4 MG/ML 1 ML VIAL IV PRN (21:50)
--- NOTE | 2019-05-26 21:50 | ED ---
Chest Pain HPI - General Chief Complaint: Chest Pain Stated Complaint: SHOBHA, Chest Pain Source: patient Mode of arrival: wheelchair Limitations: no limitations - History of Present Illness Initial Comments: The patient is a 49-year-old male who presents to the emergency room with reported respiratory insufficiency. He is status post a total knee replacement on May [address] Sinclair. States that today is the first day that he participated in physical therapy. He does believe that he overexerted himself. He felt acutely short of breath and reports that he "panicked". He began having chest wall pain and palpitations. He was brought into the emergency department for evaluation. He arrives and is tachycardic. He reports to a history of an aortic aneurysm repair and aortic valve replacements. He is on Coumadin. Normally takes Coumadin 5 mg daily. She's is an 29 states she takes 2.5 mg. Recently his INR has been elevated. He has been off of his Coumadin for 2 days. Last INR check was today and was measured at 3. He was instructed to take 2.5 mg tonight but has yet to take it. He also reports 2 day history of a DVT in 2012. Admits to left knee pain and swelling secondary to his recent surgery. Denies ripping or tearing sensation to his back. He has no history of coronary artery disease. Denies any fevers, chills, cough, nausea, vomiting or diapho resis. There are no other alleviating, precipitating or modifying factors - Related Data Home Medications Medication Instructions Recorded Confirmed Ascorbic Acid [Vitamin C] 500 mg PO DAILY 03/02/17 05/26/19 Atorvastatin [Lipitor] 40 mg PO HS 03/02/17 05/26/19 Meloxicam [Mobic] 15 mg PO DAILY 03/02/17 05/26/19 Metoprolol Tartrate [Lopressor] 12.5 mg PO BID 03/02/17 05/26/19 Omeprazole 40 mg PO BID 03/02/17 05/26/19 Testosterone [Androgel 1.62% Gel 1 applic TOPICAL MOWEFR 06/20/17 05/26/19 Pump] Cholecalciferol (Vitamin D3) 500 unit PO DAILY 05/09/19 05/26/19 [Vitamin D3] Warfarin [Coumadin] 2.5 mg PO DIRECTED 05/09/19 05/26/19 Albuterol Inhaler [Ventolin Hfa 2 puff INHALATION RT-Q6H PRN 05/16/19 05/26/19 Inhaler] HYDROcodone/APAP 7.5-325MG [[place] 1 - 2 tab PO Q6HR PRN 05/26/19 05/26/19 7.5] Previous Rx's Medication Instructions Recorded Nitroglycerin Sl Tabs [Nitrostat] 0.4 mg SUBLINGUAL Q5M PRN tab 06/21/17 Docusate [Colace] 100 mg PO DAILY #30 capsule 05/17/19 Ferrous Sulfate [Feosol] 325 mg PO BID #30 tab 05/17/19 traMADol HCl [Ultram] 50 mg PO Q6H PRN #28 tab 05/17/19 Allergies Allergy/AdvReac Type Severity Reaction Status Date / Time phenobarbital AdvReac Hyperactivi Verified 05/26/19 19:30 ty testosterone AdvReac Joint Pain Verified 05/26/19 19:30 with Injection only Review of Systems ROS Statement: Those systems with pertinent positive or pertinent negative responses have been documented in the HPI. ROS Other: All systems not noted in ROS Statement are negative. EKG Findings - EKG Comments: EKG Findings:: Initially EKG at this 1927 demonstrates a sinus tachycardia with a ventricular rate of 131. UT interval is 160. QRS 90. QTC of 434. There is UT depression with a Q wave in lead 3. There does appear to be some ST elevation in 23 aVF with no reciprocal changes. Repeat EKG at 2032 demonstrates a sinus tachycardia with a ventricular rate of 106. UT interval 160. QRS 92. QTC 441. There continues to be Q wave in lead 3. Continues to have UT depression. ST segment elevation is not as apparent. 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 CPAP use. Hx DVT right leg 2 yrs ago. Hx pneumonia a long time ago. "Poor memory." History of Any Multi-Drug Resistant Organisms: None Reported Past Surgical History: Back Surgery, Bariatric Surgery, Bladder Surgery, Cardiac Valve Replacement, Orthopedic Surgery Additional Past Surgical History / Comment(s): L TKA, Left knee scope X 2, Right knee pinning, GASTRIC BAND SURGERY, aortic valve replacement with mechanical valve, repair of arterial aneurysm right radial arteryleft knee repl Past Anesthesia/Blood Transfusion Reactions: Postoperative Nausea & Vomiting (PONV) Past Psychological History: No Psychological Hx Reported Smoking Status: Never smoker Past Alcohol Use History: None Reported Past Drug Use History: None Reported - Past Family History Mother Additional Family Medical History / Comment(s): B/L knee replacement. Father Family Medical History: Diabetes Mellitus Additional Family Medical History / Comment(s): Cardiac issues. General Exam Limitations: no limitations Course Vital Signs 05/26/19 05/26/19 05/26/19 19:16 19:26 19:30 Temperature 98.5 F Pulse Rate 142 H 130 H Respiratory 20 16 Rate Blood Pressure 122/87 O2 Sat by Pulse 99 100 100 Oximetry 05/26/19 05/26/19 05/26/19 19:50 20:00 20:30 Temperature Pulse Rate 112 H Respiratory 20 12 Rate Blood Pressure 144/82 124/92 O2 Sat by Pulse 100 Oximetry 05/26/19 05/26/19 05/26/19 20:37 21:00 21:30 Temperature Pulse Rate 106 H 104 H 105 H Respiratory 18 17 Rate Blood Pressure 157/87 122/77 O2 Sat by Pulse 100 100 Oximetry Chest Pain MDM - MDM Upon arrival the patient is placed into room 6. He is hooked up to continuous pulse ox and cardiac monitoring. A thorough history and physical exam was performed. A 12-lead EKG was performed and the patient which demonstrated sinus tachycardia. Peripheral IV was established. The patient was given for 4 mg of morphine for his lower extremity pain. He is also given 325 mg of chewable aspirin. I recommended laboratory studies and a CT PE study. Upon return results the patient's white blood cell count was noted to be 13,000. His hem oglobin is 8.7. INR is subtherapeutic at 2.3 for his aortic valve. D-dimer is also elevated at 4.3. CT of the patient's chest demonstrates no signs of PE. Lungs are clear. I did discuss results with the patient. Because the patient's cardiac history did recommend admission to the hospital for which the patient did agree. Did dose the patient's Coumadin. I will continue morphine for pain control every 4 hours. The patient will be admitted to Dr. Dominguez. I did call discuss the case with Klarissa who accepted admission for the patient. The patient was reevaluated upon multiple occasions and his pain in his [place] has improved. He is denying any chest pain. States his respiratory status has also improved. Patient's heart rate is near 100. He remained in stable condition was transported to the floor Disposition Clinical Impression: Respiratory insufficiency, Elevated d-dimer, S/P total knee arthroplasty Disposition: ADMITTED IP TO THIS HOSP Condition: Stable Is patient prescribed a controlled substance at d/c from ED?: No Referrals: Bar Bender DO [Primary Care Provider] - 1-2 days Decision to Admit Reason: Admit from EC Decision Date: 05/26/19 Decision Time: 21:50
[2019-05-26] MEDS ORDERED: ALBUTEROL NEBULIZED 2.5 MG/3 ML INHALATION PRN (22:00)
[2019-05-26] MEDS ORDERED: WARFARIN 2.5 MG TAB PO ONE (23:30)
[2019-05-26 23:33] VITALS: BMI 79.9
[2019-05-27] MEDS: ATORVASTATIN 40 MG TAB PO SCH ×2 (00:11→21:48)
[2019-05-27] MEDS: METOPROLOL TARTRATE 12.5 MG TAB PO SCH ×3 (00:11→21:48)
[2019-05-27] MEDS: MORPHINE SULFATE 4 MG/ML SYRINGE IV PRN ×4 (00:11→16:46)
[2019-05-27] MEDS: MELOXICAM 7.5 MG TAB PO SCH (08:48)
[2019-05-27 09:16] LABS: Anisocytosis Slight; Basophils # (A) 0.1 k/uL (0-0.2); Basophils % (A) 1 %; Eosinophils # (A) 0.3 k/uL (0-0.7); Eosinophils % (A) 3 %; HCT 28.8 % (39.0-53.0); HGB 9.2 gm/dL (13.0-17.5); Hypochromasia Marked; Lymphocytes # (A) 1.2 k/uL (1.0-4.8); Lymphocytes % (A) 11 %; MCH 29.5 pg (25.0-35.0); MCV 92.3 fL (80.0-100.0); Mean Platelet Volume 7.4; Monocytes # (A) 0.7 k/uL (0-1.0); Monocytes % (A) 7 %; Neutrophils # (A) 8.1 k/uL (1.3-7.7); Neutrophils % (A) 77 %; Platelet Count 342 k/uL (150-450); Poikilocytosis Slight; RBC 3.13 m/uL (4.30-5.90); RDW 16.3 % (11.5-15.5); WBC 10.5 k/uL (3.8-10.6)
[2019-05-27 09:37] LABS: Prothrombin Time 19.2 sec (9.0-12.0)
[2019-05-27 09:39] LABS: African American GFR (CKD) >90 (>60 ml/min/1.73 sqM); Anion Gap 7 mmol/L; Blood Urea Nitrogen 14 mg/dL (9-20); Calcium 8.7 mg/dL (8.4-10.2); Carbon Dioxide 31 mmol/L (22-30); Chloride 99 mmol/L (98-107); Glucose 102 mg/dL (74-99); Potassium 4.5 mmol/L (3.5-5.1); Sodium 137 mmol/L (137-145)
--- NOTE | 2019-05-27 11:23 | P.CRDCN ---
History of Present Illness History of present illness: This 49-year-old male past medical history significant for bicuspid aortic valve status post mechanical aortic valve repair on long-term anticoagulation, dyslipidemia, obstructive sleep apnea and gastroesophageal reflux disease. He denies history of coronary artery disease. He follows with Dr. Sarah out of [place]. We have been assisting him in consultation secondary to shortness of breath and tachycardia. He underwent left knee replacement last week. He has been at home doing physical therapy. He states he has been up walking with a walker. Yesterday he had an acute onset of shortness of breath. He also describes a tightness across his entire chest described as a muscle ache. The discomfort is reproducible on palpation and thought to be secondary to recent physical therapy. He denies active anginal chest discomfort. He denies dizziness, nausea, vomiting or palpitations. He complains of significant pain to the left knee and lower extremity. EKG reveals sinus tachycardia heart rate of [address] or T wave abnormalities noted. CTA chest negative for pulmonary embolism. Laboratory data reviewed, WBC 10.5, hemoglobin 9.2 with a 0.7 on admission down from 13.1 prior to surgery, platelets 342, d-dimer 4.37, INR 2.0, sodium 137, potassium 4.5, creatinine 0.62, magnesium 2.0, cardiac enzymes negative 3, proBNP 157, TSH 0.475. Current cardiac medications include atorvastatin 40 mg daily, Lopressor 12.5 mg twice a day and Coumadin. Most recent echocardiogram obtained 2017 reveals preserved LV systolic function with ejection fraction 60-65%, mechanical aortic valve with a gradient of 11 mmHg and normal function, mild TR and mild MR. Most recent stress test 2017 was a Lexiscan stress test was negative for reversible cardiac ischemia. Patient states he underwent cardiac catheterization in 2011 prior to valve replacement surgery that revealed normal coronary arteries. At the time of my exam: CONSTITUTIONAL: Denies fever. Denies chills. EYES: Denies blurred vision. Denies vision changes. Denies eye pain. EARS, NOSE, MOUTH & THROAT: Denies headache. Denies sore throat. Denies ear pain. CARDIOVASCULAR: Denies chest pain. Denies shortness of breath. Denies orthopnea. Denies PND. Denies palpitations. RESPIRATORY: Denies cough. GASTROINTESTINAL: Denies abdominal pain. Denies diarrhea. Denies constipation. Denies nausea. Denies vomiting. MUSCULOSKELETAL: Complains of pain to the left knee and lower extremity. INTEGUMENTARY: Denies pruitis. Denies rash. NEUROLOGIC: Denies numbness. Denies tingling. Denies weakness. PSYCHIATRIC: Denies anxiety. Denies depression. ENDOCRINE: Denies fatigue. Denies weight change. Denies polydipsia. Denies polyurina. GENITOURINARY: Denies burning, hematuria or urgency with micturation. HEMATOLOGIC: Denies history of anemia. Denies bleeding. GENERAL: This is a 49-year-old male in no apparent distress at the time of my examination. HEENT: Head is atraumatic, normocephalic. Pupils are equal, round. Sclerae anicteric. Conjunctivae are clear. Mucous membranes of the mouth are moist. Neck is supple. There is no jugular venous distention. No carotid bruit is heard. LUNGS: Clear to auscultation no wheezes, rales or rhonchi. No chest wall tenderness is noted on palpation or with deep breathing. HEART: Regular rate and rhythm with mechanical click at the base, no rubs or gallops. S1 and S2 heard. ABDOMEN: Soft, nontender. Bowel sounds are heard. No organomegaly noted. EXTREMITIES: Steri-Strips noted on the anterior aspect of the left knee. Trace edema noted. No edema or abnormality noted to the right lower extremity. VASCULAR: Radial and dorsalis pedis pulses palpated, no evidence of clubbing. NEUROLOGIC: Patient is awake, alert and oriented x3. ASSESSMENT Shortness of breath, possibly related to anemia Sinus tachycardia Recent left knee arthroplasty History of a mechanical aortic valve replacement secondary to bicuspid aortic valve on long-term anticoagulation with Coumadin Dyslipidemia Obstructive sleep apnea PLAN An acute coronary event has been ruled out. No evidence of pulmonary embolism. Obtain 2-D echocardiogram and Doppler study to assess cardiac structure and function. Ongoing medical management to assess for underlying cause of sinus tachycardia. Possibly related to pain. Thank you kindly for this consultation. Nurse Practitioner note has been reviewed, I agree with a documented findings and plan of care. Patient was seen and examined. 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 CPAP use. Hx DVT right leg 2 yrs ago. Hx pneumonia a long time ago. "Poor memory." History of Any Multi-Drug Resistant Organisms: None Reported Past Surgical History: Back Surgery, Bariatric Surgery, Bladder Surgery, Cardiac Valve Replacement, Orthopedic Surgery Additional Past Surgical History / Comment(s): L TKA, Left knee scope X 2, Right knee pinning, GASTRIC BAND SURGERY, aortic valve replacement with mechanical valve, repair of arterial aneurysm right radial arteryleft knee repl Past Anesthesia/Blood Transfusion Reactions: Postoperative Nausea & Vomiting (PONV) Past Psychological History: No Psychological Hx Reported Smoking Status: Never smoker Past Alcohol Use History: None Reported Past Drug Use History: None Reported - Past Family History Mother Additional Family Medical History / Comment(s): B/L knee replacement. Father Family Medical History: Diabetes Mellitus Additional Family Medical History / Comment(s): Cardiac issues. Medications and Allergies Home Medications Medication Instructions Recorded Confirmed Type Ascorbic Acid [Vitamin C] 500 mg PO DAILY 03/02/17 05/26/19 History Atorvastatin [Lipitor] 40 mg PO HS 03/02/17 05/26/19 History Metoprolol Tartrate [Lopressor] 12.5 mg PO BID 03/02/17 05/26/19 History Omeprazole 40 mg PO BID 03/02/17 05/26/19 History Testosterone [Androgel 1.62% Gel 1 applic TOPICAL MOWEFR 06/20/17 05/26/19 History Pump] Nitroglycerin Sl Tabs [Nitrostat] 0.4 mg SUBLINGUAL Q5M PRN tab 06/21/17 05/26/19 Rx Cholecalciferol (Vitamin D3) 500 unit PO DAILY 05/09/19 05/26/19 History [Vitamin D3] Warfarin [Coumadin] 2.5 mg PO DIRECTED 05/09/19 05/26/19 History Albuterol Inhaler [Ventolin Hfa 2 puff INHALATION RT-Q6H PRN 05/16/19 05/26/19 History Inhaler] Docusate [Colace] 100 mg PO DAILY #30 capsule 05/17/19 05/26/19 Rx Ferrous Sulfate [Feosol] 325 mg PO BID #30 tab 05/17/19 05/26/19 Rx traMADol HCl [Ultram] 50 mg PO Q6H PRN #28 tab 05/17/19 05/26/19 Rx HYDROcodone/APAP 7.5-325MG [[place] 1 - 2 tab PO Q6HR PRN 05/26/19 05/26/19 History 7.5] Allergies Allergy/AdvReac Type Severity Reaction Status Date / Time phenobarbital AdvReac Hyperactivi Verified 05/26/19 23:11 ty testosterone AdvReac Joint Pain Verified 05/26/19 23:11 with Injection only Physical Exam Vitals: Vital Signs Temp Pulse Pulse Resp BP BP Pulse Ox 05/27/19 08:00 98.4 F 98 16 135/80 100 05/27/19 04:00 18 05/27/19 03:37 98.3 F 9 L 18 123/79 100 05/27/19 00:00 104 H 18 05/26/19 22:25 98.9 F 104 H 18 157/89 100 05/26/19 21:30 105 H 17 122/77 100 05/26/19 21:00 104 H 18 157/87 100 05/26/19 20:37 106 H 05/26/19 20:30 124/92 05/26/19 20:00 112 H 12 144/82 100 05/26/19 19:50 20 05/26/19 19:30 130 H 16 100 05/26/19 19:26 100 05/26/19 19:16 98.5 F 142 H 20 122/87 99 Intake and Output 05/26/19 05/27/19 05/27/19 22:59 06:59 14:59 Output Total 1 Balance -1 Output: Urine 1 Other: # Voids 1 Weight 120.202 kg Results 05/27/19 08:57 05/27/19 08:57 Cardiac Enzymes 05/26/19 05/26/19 05/27/19 Range/Units 19:51 19:51 01:58 AST 25 (17-59) U/L Troponin I <0.012 <0.012 (0.000-0.034) ng/mL Coagulation 05/26/19 Range/Units 19:51 PT 22.4 H (9.0-12.0) sec APTT 47.1 H (22.0-30.0) sec CBC 05/26/19 Range/Units 19:51 WBC 13.3 H (3.8-10.6) k/uL RBC 3.02 L (4.30-5.90) m/uL Hgb 8.7 L (13.0-17.5) gm/dL Hct 27.2 L (39.0-53.0) % Plt Count 423 D (150-450) k/uL Comprehensive Metabolic Panel 05/26/19 Range/Units 19:51 Sodium 136 L (137-145) mmol/L Potassium 3.9 (3.5-5.1) mmol/L Chloride 98 (98-107) mmol/L Carbon Dioxide 29 (22-30) mmol/L BUN 14 (9-20) mg/dL Creatinine 0.70 (0.66-1.25) mg/dL Glucose 122 H (74-99) mg/dL Calcium 8.8 (8.4-10.2) mg/dL AST 25 (17-59) U/L ALT 46 (21-72) U/L Alkaline Phosphatase 185 H (38-126) U/L Total Protein 6.4 (6.3-8.2) g/dL Albumin 3.5 (3.5-5.0) g/dL Current Medications Generic Name Dose Route Start Last Admin Trade Name Freq PRN Reason Stop Dose Admin Albuterol Sulfate 2.5 mg 05/26/19 22:00 Ventolin Nebulized INHALATION RT-Q6H PRN Shortness Of Breath Atorvastatin Calcium 40 mg 05/26/19 22:00 05/27/19 00:11 Lipitor PO 40 mg HS SHERMAN Administration Meloxicam 15 mg 05/27/19 09:00 05/27/19 08:48 Mobic PO Not Given DAILY [facility] Metoprolol Tartrate 12.5 mg 05/26/19 22:00 05/27/19 08:49 Lopressor PO 12.5 mg BID SHERMAN Administration Morphine Sulfate 4 mg 05/26/19 21:50 05/27/19 03:53 Morphine Sulfate (Inj) IV 4 mg Q4HR PRN Administration Severe Pain Naloxone HCl 0.2 mg 05/26/19 21:50 Narcan IV Q2M PRN Opioid Reversal Warfarin Sodium 5 mg 05/29/19 18:00 Coumadin PO [email or web address] [facility] Warfarin Sodium 5 mg 05/27/19 18:00 Coumadin PO [email or web address]@1800 [facility] Warfarin Sodium 5 mg 05/28/19 18:00 Coumadin PO [email or web address] [facility] Warfarin Sodium 2.5 mg 05/30/19 18:00 Coumadin PO Tu@1800 [facility] Warfarin Sodium 2.5 mg 06/01/19 18:00 Coumadin PO Th@1800 [facility] Intake and Output 05/26/19 05/27/19 05/27/19 22:59 06:59 14:59 Output Total 1 Balance -1 Output: Urine 1 Other: # Voids 1 Weight 120.202 kg 05/26/19 19:51 05/26/19 19:51
--- NOTE | 2019-05-27 12:17 | US ---
EXAMINATION TYPE: US venous doppler duplex LE DATE OF EXAM: 05/27/2019 12:05 PM COMPARISON: NONE CLINICAL HISTORY: r/o dvt. Elevated D-Dimer. Left knee replacement 05/23/19. Pain and edema left leg. Patient on Coumadin SIDE PERFORMED: bilateral TECHNIQUE: The lower extremity deep venous system is examined utilizing real time linear array sonog bailee with graded compression, doppler sonography and color-flow sonography. VESSELS IMAGED: External Iliac Vein (EIV) Common Femoral Vein Deep Femoral Vein Greater Saphenous Vein * Femoral Vein Popliteal Vein Small Saphenous Vein * Proximal Calf Veins (* superficial vessels) Right Leg: No evidence of DVT Left Leg: No evidence of DVT IMPRESSION: 1. Bilateral lower extremity ultrasound negative for deep venous thrombosis.
--- NOTE | 2019-05-27 12:46 | ECHOF ---
Referral Reason:sob, av replacement MEASUREMENTS -------- HEIGHT: 180.3 cm WEIGHT: 120.2 kg BP: 135/80 RVIDd: 3.4 cm (< 3.3) IVSd: 1.4 cm (0.6 - 1.1) LVIDd: 4.1 cm (3.9 - 5.3) LVPWd: 1.4 cm (0.6 - 1.1) IVSs: 1.8 cm LVIDs: 2.8 cm LVPWs: 1.5 cm LA Diam: 3.9 cm (2.7 - 3.8) LAESV Index (A-L): 34.37 ml/m Ao Diam: 3.8 cm (2.0 - 3.7) MV EXCURSION: 12.907 mm (> 18.000) MV EF SLOPE: 71 mm/s (70 - 150) EPSS: 1.0 cm MV E Jeff: 1.00 m/s MV DecT: 221 ms MV A Jeff: 1.28 m/s MV E/A Ratio: 0.78 AV maxP.43 mmHg AV meanP.67 mmHg FINDINGS -------- Sinus rhythm. This was a technically adequate study. The left ventricular size is normal. There is moderate concentric left ventricular hypertrophy. O verall left ventricular systolic function is normal with, an EF between 60 - 65 %. The right ventricle is mildly enlarged. LA is moderately dilated 34-39 ml/m2 The right atrial size is normal. Interatrial and interventricular septum intact. Trace amount of aortic regurgitation. Peak/mean gradient across the Aortic Valve is 27.43mmHg / 12 .67mmHg. Normally functioning mechanical prosthetic valve. The mitral valve is normal. The tricuspid valve appears structurally normal. Trace/mild (physiologic) pulmonic regurgitation. The aortic root is mildy dilated. Normal inferior vena cava with normal inspiratory collapse consistent with estimated right atrial pre ssure of 5 mmHg. There is no pericardial effusion. CONCLUSIONS -------- 1. Sinus rhythm. 2. This was a technically adequate study. 3. The left ventricular size is normal. 4. There is moderate concentric left ventricular hypertrophy. 5. Overall left ventricular systolic function is normal with, an EF between 60 - 65 %. 6. The right ventricle is mildly enlarged. 7. LA is moderately dilated 34-39 ml/m2 8. Trace amount of aortic regurgitation. 9. Peak/mean gradient across the Aortic Valve is 27.43mmHg / 12.67mmHg. 10. Normally functioning mechanical prosthetic valve. 11. The mitral valve is normal. 12. The tricuspid valve appears structurally normal. 13. Trace/mild (physiologic) pulmonic regurgitation. 14. The aortic root is mildy dilated. 15. Normal inferior vena cava with normal inspiratory collapse consistent with estimated right atrial pressure of 5 mmHg. 16. There is no pericardial effusion. BRAZING MACHINE FEEDER: Yuli Vega RDCS
[2019-05-27] MEDS ORDERED: traMADol 50 MG TAB PO PRN (15:57)
[2019-05-27] MEDS ORDERED: NITROGLYCERIN SL TABS 0.4 MG TAB SUBLINGUAL PRN (15:57)
[2019-05-27] MEDS ORDERED: HYDROcodone/APAP 7.5-325MG 1 EACH TAB PO PRN (15:57)
[2019-05-27] MEDS ORDERED: ALBUTEROL NEBULIZED 2.5 MG/3 ML INHALATION PRN (16:00)
--- NOTE | 2019-05-27 16:37 | XR ---
EXAMINATION TYPE: XR chest 1V portable DATE OF EXAM: 05/27/2019 COMPARISON: 11/09/2017 HISTORY: Postop Short of breath TECHNIQUE: Single frontal view of the chest is obtained. FINDINGS: Heart and mediastinum are normal. Lungs are clear. Diaphragm is normal. There are sternal wires. There are chest leads. IMPRESSION: No active cardiopulmonary disease. There is improved inspiration compared to old exam.
[2019-05-27] MEDS: methylPREDNISolone SOD SUCCI 40 MG/ML 1 ML VIAL IV SCH ×2 (16:53→23:44)
[2019-05-27] MEDS: INSULIN ASPART (NovoLOG) 100 UNIT/ML VIAL SQ SCH ×2 (17:32→21:48)
[2019-05-27] MEDS ORDERED: WARFARIN 5 MG TAB PO SCH (18:00)
[2019-05-27 18:47] LABS: Appearance,Urine Clear (Clear); Bilirubin,Urine Negative (Negative); Blood,Urine Negative (Negative); Color,Urine Yellow; Glucose,Urine (UA) Negative (Negative); Ketones,Urine 1+ (Negative); Leukocyte Esterase,Urine Negative (Negative); Nitrite,Urine Negative (Negative); Protein,Urine Negative (Negative)
[2019-05-27] MEDS: ALBUTEROL NEBULIZED 2.5 MG/3 ML INHALATION SCH (19:16)
[2019-05-27] MEDS: SYMBICORT 160-4.5 MCG INHALER INHALATION SCH (19:16)
--- NOTE | 2019-05-27 19:28 | HP ---
HISTORY AND PHYSICAL DATE OF SERVICE: 05/27/2019 CHIEF COMPLAINT: Shortness of breath. HISTORY OF PRESENT ILLNESS: This 49-year-old gentleman with a past medical history of multiple medical problems including history of asthma, history of DVT, GERD, hyperlipidemia, history of DJD, history of pneumonia, history of obstructive sleep apnea, being followed by Dr. Bender in the outpatient setting was recently admitted with left total knee arthroplasty. The patient improved significantly. The patient went home. The patient was complaining of significant shortness of breath, especially on activity. The patient might have overexerted himself and the patient was found to have tachycardia at the time of presentation. The patient was taking Coumadin. The patient also had history of DVT and INR was found to be 2.3. D-dimer was found to be 4.37 on admission. The patient did have a CT angio which showed no evidence of pulmonary embolism. The patient admitted for further evaluation and treatment. There is no history of any fever, rigors or chills. No history of headache, loss of consciousness or seizures at this time. Cardiology evaluation has been in progress. A 2D echo with Doppler was also done which showed ejection fraction over 60 to 65% with moderate LA dilatation. No pericardial effusion was noted. The patient is being closely monitored at this time. The patient also had soundscriber mechanic aortic valve replacement secondary to bicuspid valve and on long-term anticoagulation. The hemoglobin was found to be 9.2. There is no history of fever, rigors, chills at this time. PAST MEDICAL HISTORY: Past medical history of recent left total knee joint arthroplasty, history of asthma, history of DVT, history of GERD, hyperlipidemia, history of DJD, history of pneumonia, history of bicuspid valve and aortic valve replacement history. MEDICATIONS: Home medications are: 1. Ultram 50 mg q.6h p.r.n. 2. Coumadin 2.5 mg. 3. Testosterone 1 application Wednesday, Wednesday, Wednesday. 4. Omeprazole 40 mg p.o. b.i.d. 5. Nitrostat 0.4 sublingual p.r.n. 6. Lopressor 12.5 mg p.o. b.i.d. 7. [place] 7.5 1-2 tablets q.6h p.r.n. 8. Iron sulfate 320 mg p.o. b.i.d. 9. Colace 100 mg p.o. daily. 10.Vitamin D3 500 units daily. 11.Lipitor 40 mg q.h.s. 12.Vitamin C 500 mg p.o. daily. 13.Ventolin HFA 2 puffs q.6h p.r.n. ALLERGIES: PHENOBARBITAL and TESTOSTERONE. FAMILY HISTORY: History of diabetes and knee replaced in the family. SOCIAL HISTORY: No history of smoking. No history of alcohol. REVIEW OF SYSTEMS: ENT: No diminished vision. No diminished hearing. CARDIOVASCULAR system: No angina, palpitations, otherwise mentioned earlier. RESPIRATION: As mentioned earlier. GI no nausea or vomiting. no dysuria. NERVOUS SYSTEM: No numbness or weakness. ALLERGY/IMMUNOLOGY: No asthma or hayfever. MUSCULOSKELETAL as mentioned earlier. HEMATOLOGY/ONCOLOGY: Anemia. ENDOCRINE: No history of diabetes or hypothyroid. CONSTITUTIONAL: As mentioned earlier. DERMATOLOGY: Negative. RHEUMATOLOGY negative. PSYCHIATRY as mentioned. PHYSICAL EXAMINATION: Alert and oriented times three. Pulse 93, blood pressure 129/80, respirations 16, temperature 98.6, pulse ox 98% on room air. HEENT: Conjunctivae normal. NECK: Neck is no jugular venous distention. No carotid bruit. No lymph node enlargement. CARDIOVASCULAR: S1, S2 is prosthetic. Ejection systolic murmur present. RESPIRATORY: Breath sounds diminished in the bases. A few scattered rhonchi. No crackles. ABDOMEN: Soft, nontender. No mass palpable. LEGS: Left leg swelling and status post knee arthroplasty. NERVOUS SYSTEM: Higher functions as mentioned earlier. Moves all 4 limbs. No focal motor or sensory deficits. Lymphatics: No lymph nodes palpable in the neck, axillae or groin. SKIN: No ulcer, rash or bleeding. JOINTS: No active deforming arthropathy. LAB STUDIES: WBC 11.1, hemoglobin 9.2, and INR is 2. Sodium is 137, potassium 4.5. ASSESSMENT: 1. Shortness of breath on presentation, multifactorial, possibly secondary to acute asthmatic exacerbation as well as anemia. 2. History of recent left total knee arthroplasty. 3. Elevated D-dimer with no evidence of pulmonary embolism. 4. Coumadin monitoring. 5. Anemia, normocytic, multifactorial. 6. Increased WBC, present on admission. 7. History of recent left total knee arthroplasty. 8. History of deep vein thrombosis. 9. Gastroesophageal reflux disease. 10.Hyperlipidemia. 11.History of memory impairment. 12.History of degenerative joint disease. 13.History of pneumonia. 14.History of sleep apnea. 15.History of bicuspid aortic valve. 16.History of CPAP. 17.History of back surgery. 18.History of bariatric surgery. 19.History of degenerative joint disease. 20.History of left total knee arthroplasty. 21.History of gastric band surgery. RECOMMENDATIONS AND DISCUSSION: This 49-year-old gentleman who presented with multiple complex medical issues, at this time, I recommend to continue current medications, continue symptomatic treatment. Otherwise, at this time, resume the home medications. I would recommend intensive bronchodilator treatment. Increase ambulation. Monitor PT, INR closely. There is no evidence of pulmonary embolism at this time and 2D echo Doppler also showed no significant cardiac abnormality. We will continue to monitor. Overall prognosis guarded because of multiple complex medical issues. Further recommendations to follow. See orders for details. MMODL / IJN: [id number] /
[2019-05-27 20:06] LABS: Glucose,Whole Blood 151 mg/dL (75-99)
[2019-05-27] MEDS: FERROUS SULFATE 325 MG TAB PO SCH (21:48)
[2019-05-27] MEDS: PANTOPRAZOLE 40 MG TABLET PO SCH (21:48)
[2019-05-28 06:55] LABS: Glucose,Whole Blood 156 mg/dL (75-99)
[2019-05-28 07:24] LABS: Anisocytosis Slight; Basophils % (A) 0 %; Eosinophils % (A) 0 %; HCT 28.6 % (39.0-53.0); HGB 9.1 gm/dL (13.0-17.5); Hypochromasia Moderate; Lymphocytes # (A) 0.9 k/uL (1.0-4.8); Lymphocytes % (A) 8 %; MCH 28.5 pg (25.0-35.0); MCHC 31.9 g/dL (31.0-37.0); MCV 89.3 fL (80.0-100.0); Mean Platelet Volume 7.2; Monocytes # (A) 0.2 k/uL (0-1.0); Monocytes % (A) 2 %; Neutrophils # (A) 9.8 k/uL (1.3-7.7); Neutrophils % (A) 89 %; Platelet Count 455 k/uL (150-450); Poikilocytosis Moderate; RBC 3.21 m/uL (4.30-5.90); RDW 16.4 % (11.5-15.5)
[2019-05-28 07:42] LABS: African American GFR (CKD) >90 (>60 ml/min/1.73 sqM); Anion Gap 11 mmol/L; Blood Urea Nitrogen 15 mg/dL (9-20); Calcium 9.1 mg/dL (8.4-10.2); Carbon Dioxide 26 mmol/L (22-30); Chloride 101 mmol/L (98-107); Glucose 147 mg/dL (74-99); Potassium 4.4 mmol/L (3.5-5.1); Sodium 138 mmol/L (137-145)
[2019-05-28] MEDS: ALBUTEROL NEBULIZED 2.5 MG/3 ML INHALATION SCH ×3 (07:46→19:25)
[2019-05-28] MEDS: SYMBICORT 160-4.5 MCG INHALER INHALATION SCH ×2 (07:46→19:25)
[2019-05-28 07:58] LABS: INR 1.9 (<1.2); Prothrombin Time 19.1 sec (9.0-12.0)
[2019-05-28] MEDS: METOPROLOL TARTRATE 12.5 MG TAB PO SCH (08:10)
[2019-05-28] MEDS: CHOLECALCIFEROL 400 UNIT TAB PO SCH (08:10)
[2019-05-28] MEDS: PANTOPRAZOLE 40 MG TABLET PO SCH ×2 (08:10→21:48)
[2019-05-28] MEDS: methylPREDNISolone SOD SUCCI 40 MG/ML 1 ML VIAL IV SCH ×2 (08:10→17:30)
[2019-05-28] MEDS: INSULIN ASPART (NovoLOG) 100 UNIT/ML VIAL SQ SCH ×4 (08:10→21:48)
[2019-05-28] MEDS: DOCUSATE 100 MG CAP PO SCH (08:11)
[2019-05-28] MEDS: MELOXICAM 7.5 MG TAB PO SCH (08:11)
[2019-05-28] MEDS: ASCORBIC ACID 500 MG TAB PO SCH (08:11)
[2019-05-28] MEDS: FERROUS SULFATE 325 MG TAB PO SCH ×2 (08:11→21:47)
[2019-05-28] MEDS ORDERED: SODIUM CHLORIDE 0.9% 500 ML 500 ML IV ONE (09:42)
[2019-05-28] MEDS: SODIUM CHLORIDE 0.9% 1,000 ML IV SCH (09:56)
--- NOTE | 2019-05-28 10:27 | P.PN ---
Subjective This 49-year-old male past medical history significant for bicuspid aortic valve status post mechanical aortic valve repair on long-term a nticoagulation, dyslipidemia, obstructive sleep apnea and gastroesophageal reflux disease. He denies history of coronary artery disease. He follows with Dr. Sarah out of [facility]. We have been assisting him in consultation secondary to shortness of breath and tachycardia. He is seen and examined resting comfortably in bed in no acute distress. HEENT denies symptoms of chest discomfort, shortness of breath or dizziness. He states every time he gets up to do any mild exertion he notices his heart rate increases. He also has an intermittent episodes of extreme diaphoresis. He states that he gets up to the bathroom is that is saturated. Echocardiogram obtained revealed preserved LV systolic function with ejection fraction 60-65%, trace amount of aortic regurgitation, normally functioning mechanical valve with a gradient across the valve of 12 mmHg. Telemetry tracings reviewed reveal sinus tachycardia. GENERAL: This is a 49-year-old male in no apparent distress at the time of my examination. HEENT: Head is atraumatic, normocephalic. Pupils are equal, round. Sclerae anicteric. Conjunctivae are clear. Mucous membranes of the mouth are moist. Neck is supple. There is no jugular venous distention. No carotid bruit is heard. LUNGS: Clear to auscultation no wheezes, rales or rhonchi. No chest wall tenderness is noted on palpation or with deep breathing. HEART: Regular rate and rhythm with mechanical click at the base, no rubs or gallops. S1 and S2 heard. EXTREMITIES: Steri-Strips noted on the anterior aspect of the left knee. Trace edema noted. No edema or abnormality noted to the right lower extremity. ASSESSMENT Shortness of breath, possibly related to anemia Sinus tachycardia Recent left knee arthroplasty History of a mechanical aortic valve replacement secondary to bicuspid aortic valve on long-term anticoagulation with Coumadin Dyslipidemia Obstructive sleep apnea PLAN Ongoing medical management and evaluation of possible underlying infectious process. Follow-up with Dr. Sarah upon discharge. We will follow as needed, call with further questions or concerns. Nurse Practitioner note has been reviewed, I agree with a documented findings and plan of care. Patient was seen and examined. Objective - Vital Signs Vital signs: Vital Signs Temp 98.3 F 05/28/19 08:00 Pulse 108 H 05/28/19 08:00 Resp 16 08/25/19 08:00 BP 135/87 05/28/19 08:00 Pulse Ox 98 05/28/19 08:00 Intake & Output 05/27/19 05/28/19 05/28/19 18:59 06:59 18:59 Intake Total 0 Balance 0 Intake: Oral 0 Other: Voiding Method Toilet Toilet Toilet Urinal Urinal Urinal # Voids 3 - Labs CBC & Chem 7: 05/28/19 06:47 05/28/19 06:47 Labs: Abnormal Lab Results - Last 24 Hours (Table) 05/27/19 05/27/19 05/28/19 Range/Units 18:02 20:04 06:47 WBC (3.8-10.6) k/uL RBC (4.30-5.90) m/uL Hgb (13.0-17.5) gm/dL Hct (39.0-53.0) % RDW (11.5-15.5) % Plt Count (150-450) k/uL Neutrophils # (1.3-7.7) k/uL Lymphocytes # (1.0-4.8) k/uL PT 19.1 H (9.0-12.0) sec INR 1.9 H (<1.2) Creatinine (0.66-1.25) mg/dL Glucose (74-99) mg/dL POC Glucose (mg/dL) 151 H (75-99) mg/dL Plasma Lactic Acid Fareed (0.7-2.0) mmol/L Urine Ketones 1+ H (Negative) 05/28/19 05/28/19 05/28/19 Range/Units 06:47 06:47 06:54 WBC 11.0 H (3.8-10.6) k/uL RBC 3.21 L (4.30-5.90) m/uL Hgb 9.1 L (13.0-17.5) gm/dL Hct 28.6 L (39.0-53.0) % RDW 16.4 H (11.5-15.5) % Plt Count 455 H (150-450) k/uL Neutrophils # 9.8 H (1.3-7.7) k/uL Lymphocytes # 0.9 L (1.0-4.8) k/uL PT (9.0-12.0) sec INR (<1.2) Creatinine 0.52 L (0.66-1.25) mg/dL Glucose 147 H (74-99) mg/dL POC Glucose (mg/dL) 156 H (75-99) mg/dL Plasma Lactic Acid Fareed (0.7-2.0) mmol/L Urine Ketones (Negative) 05/28/19 Range/Units 08:32 WBC (3.8-10.6) k/uL RBC (4.30-5.90) m/uL Hgb (13.0-17.5) gm/dL Hct (39.0-53.0) % RDW (11.5-15.5) % Plt Count (150-450) k/uL Neutrophils # (1.3-7.7) k/uL Lymphocytes # (1.0-4.8) k/uL PT (9.0-12.0) sec INR (<1.2) Creatinine (0.66-1.25) mg/dL Glucose (74-99) mg/dL POC Glucose (mg/dL) (75-99) mg/dL Plasma Lactic Acid Fareed 2.2 H* (0.7-2.0) mmol/L Urine Ketones (Negative)
--- NOTE | 2019-05-28 10:58 | P.CNOR ---
History of Present Illness - [facility] Consult date: 05/28/19 Consult reason: other (Recent total knee arthroplasty) History of present illness: The patient is a 49-year-old gentleman who underwent left total knee arthroplasty approximately 12 days ago who presents after developing shortness of breath 2 days ago. He denies any fevers or chills. He's been ambulatory. He does note some left knee swelling recently, however his pain is limited. 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 CPAP use. Hx DVT right leg 2 yrs ago. Hx pneumonia a long time ago. "Poor memory." History of Any Multi-Drug Resistant Organisms: None Reported Past Surgical History: Back Surgery, Bariatric Surgery, Bladder Surgery, Cardiac Valve Replacement, Orthopedic Surgery Additional Past Surgical History / Comment(s): L TKA, Left knee scope X 2, Right knee pinning, GASTRIC BAND SURGERY, aortic valve replacement with mechanical valve, repair of arterial aneurysm right radial arteryleft knee repl Past Anesthesia/Blood Transfusion Reactions: Postoperative Nausea & Vomiting (PONV) Past Psychological History: No Psychological Hx Reported Smoking Status: Never smoker Past Alcohol Use History: None Reported Past Drug Use History: None Reported - Past Family History Mother Additional Family Medical History / Comment(s): B/L knee replacement. Father Family Medical History: Diabetes Mellitus Additional Family Medical History / Comment(s): Cardiac issues. Medications and Allergies Home Medications Medication Instructions Recorded Confirmed Type Ascorbic Acid [Vitamin C] 500 mg PO DAILY 03/02/17 05/26/19 History Atorvastatin [Lipitor] 40 mg PO HS 03/02/17 05/26/19 History Metoprolol Tartrate [Lopressor] 12.5 mg PO BID 03/02/17 05/26/19 History Omeprazole 40 mg PO BID 03/02/17 05/26/19 History Testosterone [Androgel 1.62% Gel 1 applic TOPICAL MOWEFR 06/20/17 05/26/19 History Pump] Nitroglycerin Sl Tabs [Nitrostat] 0.4 mg SUBLINGUAL Q5M PRN tab 06/21/17 05/26/19 Rx Cholecalciferol (Vitamin D3) 500 unit PO DAILY 05/09/19 05/26/19 History [Vitamin D3] Warfarin [Coumadin] 2.5 mg PO DIRECTED 05/09/19 05/26/19 History Albuterol Inhaler [Ventolin Hfa 2 puff INHALATION RT-Q6H PRN 05/16/19 05/26/19 History Inhaler] Docusate [Colace] 100 mg PO DAILY #30 capsule 05/17/19 05/26/19 Rx Ferrous Sulfate [Feosol] 325 mg PO BID #30 tab 05/17/19 05/26/19 Rx traMADol HCl [Ultram] 50 mg PO Q6H PRN #28 tab 05/17/19 05/26/19 Rx HYDROcodone/APAP 7.5-325MG [[place] 1 - 2 tab PO Q6HR PRN 05/26/19 05/26/19 History 7.5] Allergies Allergy/AdvReac Type Severity Reaction Status Date / Time phenobarbital AdvReac Hyperactivi Verified 05/26/19 23:11 ty testosterone AdvReac Joint Pain Verified 05/26/19 23:11 with Injection only Physical Examination - Knee left Appearance: previous incision (No warmth or erythema) Effusion grade: grade 1 Tenderness with palpation: none Pain: no pain ROM: extension: -10 degrees ROM: flexion: 100 degrees Strength: extension: 5/5 (Homans negative left lower extremity) Strength: flexion: 5/5 Results Dopplers negative bilateral lower extremities for DVT, CTA negative for pulmonary embolism - Labs Labs: Abnormal Lab Results - Last 24 Hours (Table) 05/27/19 05/27/19 05/28/19 Range/Units 18:02 20:04 06:47 WBC (3.8-10.6) k/uL RBC (4.30-5.90) m/uL Hgb (13.0-17.5) gm/dL Hct (39.0-53.0) % RDW (11.5-15.5) % Plt Count (150-450) k/uL Neutrophils # (1.3-7.7) k/uL Lymphocytes # (1.0-4.8) k/uL PT 19.1 H (9.0-12.0) sec INR 1.9 H (<1.2) Creatinine (0.66-1.25) mg/dL Glucose (74-99) mg/dL POC Glucose (mg/dL) 151 H (75-99) mg/dL Plasma Lactic Acid Fareed (0.7-2.0) mmol/L Urine Ketones 1+ H (Negative) 05/28/19 05/28/19 05/28/19 Range/Units 06:47 06:47 06:54 WBC 11.0 H (3.8-10.6) k/uL RBC 3.21 L (4.30-5.90) m/uL Hgb 9.1 L (13.0-17.5) gm/dL Hct 28.6 L (39.0-53.0) % RDW 16.4 H (11.5-15.5) % Plt Count 455 H (150-450) k/uL Neutrophils # 9.8 H (1.3-7.7) k/uL Lymphocytes # 0.9 L (1.0-4.8) k/uL PT (9.0-12.0) sec INR (<1.2) Creatinine 0.52 L (0.66-1.25) mg/dL Glucose 147 H (74-99) mg/dL POC Glucose (mg/dL) 156 H (75-99) mg/dL Plasma Lactic Acid Fareed (0.7-2.0) mmol/L Urine Ketones (Negative) 05/28/19 Range/Units 08:32 WBC (3.8-10.6) k/uL RBC (4.30-5.90) m/uL Hgb (13.0-17.5) gm/dL Hct (39.0-53.0) % RDW (11.5-15.5) % Plt Count (150-450) k/uL Neutrophils # (1.3-7.7) k/uL Lymphocytes # (1.0-4.8) k/uL PT (9.0-12.0) sec INR (<1.2) Creatinine (0.66-1.25) mg/dL Glucose (74-99) mg/dL POC Glucose (mg/dL) (75-99) mg/dL Plasma Lactic Acid Fareed 2.2 H* (0.7-2.0) mmol/L Urine Ketones (Negative) H & H 05/26/19 05/27/19 05/28/19 Range/Units 19:51 08:57 06:47 Hgb 8.7 L 9.2 L 9.1 L (13.0-17.5) gm/dL Hct 27.2 L 28.8 L 28.6 L (39.0-53.0) % Coagulation 05/26/19 05/27/19 05/28/19 Range/Units 19:51 08:57 06:47 INR 2.3 H 2.0 H 1.9 H (<1.2) Result Diagrams: 05/28/19 06:47 05/28/19 06:47 Assessment and Plan Assessment: Status post left total knee arthroplasty History of aortic valve replacement Chronic anticoagulation Plan: At this point I don't see a definite infectious process involving his left knee. We will obtain laboratory studies to include sed rate, C-reactive protein. Continue with therapy and ambulation with walker. Time with Patient: Less than 30
[2019-05-28 11:53] LABS: Glucose,Whole Blood 150 mg/dL (75-99)
[2019-05-28 16:52] LABS: Glucose,Whole Blood 131 mg/dL (75-99)
[2019-05-28 17:12] VITALS: RESP 18
[2019-05-28] MEDS ORDERED: WARFARIN 5 MG TAB PO SCH (18:00)
--- NOTE | 2019-05-28 19:51 | PN ---
PROGRESS NOTE DATE OF SERVICE: 05/28/2019 This 49-year-old gentleman who had a recent left knee surgery, admitted with significant shortness of breath. Last night, the patient also had tachycardia. The patient had lactic acid also elevated. Patient also had swelling of the left knee area as well as left ankle area also. The possibility of sepsis also being considered. Dr. Pierre has been consulted. Dr. Salazar is also following the patient from the orthopedics point of view. Otherwise, white count is slightly elevated at 11 today, hemoglobin 9.1, platelets are 455 and lactic acid is 2.2 and even after IV boluses, it was 2.4. C-reactive protein is 191.4. PAST MEDICAL HISTORY: Reviewed. ESR is 97. REVIEW OF SYSTEMS: CARDIOVASCULAR SYSTEM: No angina or palpitations. RESPIRATIONS: As mentioned earlier. GI: As mentioned earlier. : No dysuria. CENTRAL NERVOUS SYSTEM: No numbness or weakness. CURRENT MEDICATIONS ARE: Reviewed and include: 1. [place] 7.5 q.6h p.r.n. 2. Ventolin nebulized. 3. Vitamin C. 4. Lipitor. 5. Symbicort. 6. Vitamin D3. 7. Colace. 8. Iron sulfate. 9. Mobic. 10.Solu-Medrol is 40 IV q.8. 11.Lopressor. 12.Narcan. 13.Protonix. 14.Ultram. 15.Coumadin. PHYSICAL EXAM: Patient is alert and oriented x3. Pulse 82. Blood pressure 134/70, respiration 16, temperature 98.4, pulse ox 97% on room air. HEENT are conjunctivae normal. Oral mucosa moist. NECK is no jugular venous distention. No carotid bruit. No lymph node enlargement. CARDIOVASCULAR SYSTEMS: S1, S2. RESPIRATION: Breath sounds diminished in the bases. Scattered rhonchi and crackles. ABDOMEN: Soft, nontender. No mass palpable. LEGS: Status post left knee surgery. Minimal swelling of the left knee and some swelling of the ankle also present. Nontender. NERVOUS SYSTEM: Higher functions as mentioned. Moves all four limbs. No focal deficits. LYMPHATICS: No lymph nodes palpable in the neck, axillae or groin. SKIN: Noted. LABS: WBC 11, hemoglobin 9.1, platelets are 455. INR is 1.9. Glucose 156 and lactic acid is 2.2 and 2.4. C-reactive protein is 191.4. ASSESSMENT: 1. Shortness of breath, on presentation, possibly multifactorial, possibly secondary to acute exacerbation asthma as well as anemia. 2. CT scan negative for pulmonary embolism with elevated D-dimer. 3. History of recent left total knee joint arthroplasty. 4. Rule out acute gout. 5. Elevated lactic acid. 6. Increased WBC. Rule out sepsis. 7. Increased ESR and CRP. 8. Coumadin monitoring. 9. Anemia normocytic, multifactorial. 10.Increased WBC present on admission. 11.History of deep vein thrombosis. 12.Gastroesophageal reflux disease. 13.Hyperlipidemia. 14.History of memory impairment. 15.History of degenerative joint disease. 16.History of pneumonia. 17.History of sleep apnea. 18.History of bicuspid aortic valve. 19.History of CPAP. 20.History of back surgery. 21.History of bariatric surgery. 22.History of degenerative joint disease. 23.History of left total knee arthroplasty. 24.History of gastric band surgery. RECOMMENDATIONS AND DISCUSSION: Recommend to continue current medications, management and symptomatic treatment. Otherwise, we will obtain the cultures. We will consult Dr. Pierre for Infectious Disease and continue to monitor. Otherwise, I would also recommend serum uric acid. Continue to monitor. Prognosis guarded. Further recommendations to follow. Discussed with Dr. Salazar. Further recommendations discussed with staff and the patient and family. MMODL / DERECKN: [id number] /
[2019-05-28 20:31] LABS: Glucose,Whole Blood 148 mg/dL (75-99)
[2019-05-28] MEDS: ATORVASTATIN 40 MG TAB PO SCH (21:47)
[2019-05-28] MEDS: METOPROLOL TARTRATE 25 MG TAB PO SCH (21:48)
--- NOTE | 2019-05-28 22:03 | P.CONS ---
History of Present Illness - Reason for Consult Consult date: 05/28/19 - Chief Complaint sob and weakness - History of Present Illness 49 year old male who presents with significant shortness of breath and increasing weakness. The patient was admitted with the significant change in the status. He has the history of the left total knee arthroplasty, And was doing relatively well with his therapy as an onset of symptoms. The patient relates he became drenched in sweat Uchitel's heart rate was elevated he was having shortness of breath and felt very weak. Because when he presented emergency center was sent evidence of the temperature 99.8, however he was quite tachycardic and at one point in time nursing staff relates a heart rate up to 170. Currently heart rate is just over 100 is feeling considerably better. He has the history of a bicuspid aortic valve and underwent prosthetic valve placement several years ago and remained on Coumadin therapy. Mechanical valve was chosen because of his use and not wanting to have to have a repeat surgeon relatively short period of time.. Gen. he does well with his Coumadin. The patient's relates that he had a similar event after his other recent surgery where he had significant bouts of tachycardia. Etiology was not clear at that time either. The patient has been seen by cardiology, apparently he did have an outpatient stress test earlier this year that went well. Review of Systems Patient started to feel considerably better. HEENT:Denies headache or acute visual change. Denies sinus or mouth discomforts. Denies neck stiffness or pain. Denies significant oral cavity pain. Denies difficulty on swallowing. Lungs: Shortness of breath at admission has improved she has no cough production or hemoptysis Cardiovascular: Shortness of breath is improved, denies chest pain, chest wall pain, orthopnea, dyspnea on exertion, syncope Gastrointestinal:Denies nausea, vomiting, diarrhea, constipation, hematemesis, melena, hematochezia. No no significant change of bowel habit noticed. Musculoskeletal: Pain in left knee status post surgery but is improving signif icant edema to the knee is improving also Skin: Denies new rash or lesions. No new ulcers or wounds are related.. Neuro: Denies headache or visual change. Denies any new onset weakness or difficulty with ambulation. Denies falls or seizures. Psychiatric:Denies anxiety or depression. Endocrine: Denies significant fatigue, denies significant weight loss or weight gain. 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 CPAP use. Hx DVT right leg 2 yrs ago. Hx pneumonia a long time ago. "Poor memory." History of Any Multi-Drug Resistant Organisms: None Reported Past Surgical History: Back Surgery, Bariatric Surgery, Bladder Surgery, Cardiac Valve Replacement, Orthopedic Surgery Additional Past Surgical History / Comment(s): L TKA, Left knee scope X 2, Right knee pinning, GASTRIC BAND SURGERY, aortic valve replacement with mechanical valve, repair of arterial aneurysm right radial arteryleft knee repl Past Anesthesia/Blood Transfusion Reactions: Postoperative Nausea & Vomiting (PONV) Past Psychological History: No Psychological Hx Reported Additional Psychological History / Comment(s): lives with her family home with the . no experience. No recent travel. Pet dog and cat in the home Smoking Status: Never smoker Past Alcohol Use History: None Reported Past Drug Use History: None Reported - Past Family History Mother Additional Family Medical History / Comment(s): B/L knee replacement. Father Family Medical History: Diabetes Mellitus Additional Family Medical History / Comment(s): Cardiac issues. Medications and Allergies Home Medications and Allergies Comment(s): Current Medications Hydrocodone Bitart/Acetaminophen (Gooding 7.5-325) 1 each PO Q6HR PRN PRN Reason: Pain Last Admin: 05/27/19 18:05 Dose: 1 each Documented by: Albuterol Sulfate (Ventolin Nebulized) 2.5 mg INHALATION RT-Q6H PRN PRN Reason: Shortness Of Breath Albuterol Sulfate (Ventolin Nebulized) 2.5 mg INHALATION RT-TID [facility] Last Admin: 05/28/19 19:25 Dose: Not Given Documented by: Albuterol Sulfate (Ventolin Nebulized) 2.5 mg INHALATION RT-TID PRN PRN Reason: Shortness Of Breath Or Wheezing Ascorbic Acid (Vitamin C) 500 mg PO DAILY [facility] Last Admin: 05/28/19 08:11 Dose: 500 mg Documented by: Atorvastatin Calcium (Lipitor) 40 mg PO HS [facility] Last Admin: 05/28/19 21:47 Dose: 40 mg Documented by: Budesonide/Formoterol Fumarate (Symbicort 160-4.5 Mcg Inhaler) 2 puff INHALATION RT-BID [facility] Last Admin: 05/28/19 19:25 Dose: Not Given Documented by: Cholecalciferol (Vitamin D3) 400 unit PO DAILY [facility] Last Admin: 05/28/19 08:10 Dose: 400 unit Documented by: Docusate Sodium (Colace) 100 mg PO DAILY [facility] Last Admin: 05/28/19 08:11 Dose: 100 mg Documented by: Ferrous Sulfate (Feosol) 325 mg PO BID [facility] Last Admin: 05/28/19 21:47 Dose: 325 mg Documented by: Sodium Chloride (Saline 0.9%) 1,000 mls @ 100 mls/hr IV .Q10H [facility] Last Admin: 05/28/19 09:56 Dose: 100 mls/hr Documented by: Insulin Aspart (Novolog) 0 unit SQ ACHS [facility]; Protocol Last Admin: 05/28/19 21:48 Dose: 1 unit Documented by: Meloxicam (Mobic) 15 mg PO DAILY [facility] Last Admin: 05/28/19 08:11 Dose: Not Given Documented by: Methylprednisolone Sodium Succinate (Solu-Medrol) 40 mg IV Q8HR [facility] Last Admin: 05/28/19 17:30 Dose: 40 mg Documented by: Metoprolol Tartrate (Lopressor) 25 mg PO BID [facility] Last Admin: 05/28/19 21:48 Dose: 25 mg Documented by: Morphine Sulfate (Morphine Sulfate (Inj)) 4 mg IV Q4HR PRN PRN Reason: Severe Pain Last Admin: 05/27/19 16:46 Dose: 4 mg Documented by: Naloxone HCl (Narcan) 0.2 mg IV Q2M PRN PRN Reason: Opioid Reversal Nitroglycerin (Nitrostat) 0.4 mg SUBLINGUAL Q5M PRN PRN Reason: Chest Pain Pantoprazole Sodium (Protonix) 40 mg PO BID [facility] Last Admin: 05/28/19 21:48 Dose: 40 mg Documented by: Silver Sulfadiazine (Silvadene Cream) 1 applic TOPICAL DAILY [facility] Last Admin: 05/28/19 16:01 Dose: 1 applic Documented by: Tramadol HCl (Ultram) 50 mg PO Q6H PRN PRN Reason: Moderate Pain Warfarin Sodium (Coumadin) 5 mg PO MoWeFr@1800 [facility] Warfarin Sodium (Coumadin) 5 mg PO Sa@1800 [facility] Last Admin: 05/27/19 18:04 Dose: 5 mg Documented by: Warfarin Sodium (Coumadin) 5 mg PO Porter@1800 [facility] Last Admin: 05/28/19 17:31 Dose: 5 mg Documented by: Warfarin Sodium (Coumadin) 2.5 mg PO Tu@1800 [facility] Warfarin Sodium (Coumadin) 2.5 mg PO Th@1800 [facility] Home Medications Medication Instructions Recorded Confirmed Type Ascorbic Acid [Vitamin C] 500 mg PO DAILY 03/02/17 05/26/19 History Atorvastatin [Lipitor] 40 mg PO HS 03/02/17 05/26/19 History Metoprolol Tartrate [Lopressor] 12.5 mg PO BID 03/02/17 05/26/19 History Omeprazole 40 mg PO BID 03/02/17 05/26/19 History Testosterone [Androgel 1.62% Gel 1 applic TOPICAL MOWEFR 06/20/17 05/26/19 History Pump] Nitroglycerin Sl Tabs [Nitrostat] 0.4 mg SUBLINGUAL Q5M PRN tab 06/21/17 05/26/19 Rx Cholecalciferol (Vitamin D3) 500 unit PO DAILY 05/09/19 05/26/19 History [Vitamin D3] Warfarin [Coumadin] 2.5 mg PO DIRECTED 05/09/19 05/26/19 History Albuterol Inhaler [Ventolin Hfa 2 puff INHALATION RT-Q6H PRN 05/16/19 05/26/19 History Inhaler] Docusate [Colace] 100 mg PO DAILY #30 capsule 05/17/19 05/26/19 Rx Ferrous Sulfate [Feosol] 325 mg PO BID #30 tab 05/17/19 05/26/19 Rx traMADol HCl [Ultram] 50 mg PO Q6H PRN #28 tab 05/17/19 05/26/19 Rx HYDROcodone/APAP 7.5-325MG [Gooding 1 - 2 tab PO Q6HR PRN 05/26/19 05/26/19 History 7.5] Allergies Allergy/AdvReac Type Severity Reaction Status Date / Time phenobarbital AdvReac Hyperactivi Verified 05/26/19 23:11 ty testosterone AdvReac Joint Pain Verified 05/26/19 23:11 with Injection only Physical Exam Vitals: Vital Signs Temp Pulse Resp BP Pulse Ox 05/28/19 16:00 97.9 F 104 H 18 137/81 98 05/28/19 12:00 98.5 F 82 16 134/79 97 05/28/19 08:00 98.3 F 108 H 16 135/87 98 05/28/19 04:48 97.6 F 93 18 129/79 98 05/27/19 23:11 98.9 F 98 18 129/83 98 Intake and Output 05/28/19 05/28/19 05/28/19 06:59 14:59 22:59 Intake Total 0 Balance 0 Intake: Oral 0 Other: Voiding Method Toilet Toilet Toilet Urinal Urinal Urinal # Voids 3 Pleasant 49-year-old male is not in juan distress relates that his sweats have resolved, pain is better less short of breath and palpitations have resolved HEENT: Anicteric conjunctiva are pink and moist nasal mucosa grossly intact without significant lesions, there is no thrush. Neck: The neck is supple without significant lymphadenopathy or thyromegaly. Lungs: Good bilateral air entry without significant crackles or wheezing. There is no significant bronchial sounds. There is no egophony or dullness. Heart: Regular rate and rhythm with an audible S1-S2, no S3 no S4. There is no significant murmur click or rub, PMI was nondisplaced. Abdomen: Positive bowel sounds soft and nontender without palpable masses or organomegaly. There was no guarding or rebound. Extremities: The upper extremities have excellent pulses they are symmetric, no significant petechiae or telangiectasia. No splinter hemorrhages were noted. The right knee reveals the prior surgical intervention from prior trauma is well-healed. Left lower extremity at the knee shows evidence of the recent total knee arthroplasty. There is some modest swelling minimal warmth minimal erythema, Steri-Strips are in place. There is no significant drainage generalized edema is not noted. Neuro: Awake alert oriented to person place and time. There are no acute new gross focal sensory motor deficits. Results CBC & Chem 7: 05/28/19 06:47 05/28/19 06:47 Labs: Abnormal Lab Results - Last 24 Hours (Table) 05/28/19 05/28/19 05/28/19 Range/Units 06:47 06:47 06:47 WBC 11.0 H (3.8-10.6) k/uL RBC 3.21 L (4.30-5.90) m/uL Hgb 9.1 L (13.0-17.5) gm/dL Hct 28.6 L (39.0-53.0) % RDW 16.4 H (11.5-15.5) % Plt Count 455 H (150-450) k/uL Neutrophils # 9.8 H (1.3-7.7) k/uL Lymphocytes # 0.9 L (1.0-4.8) k/uL ESR (0-15) mm/hr PT 19.1 H (9.0-12.0) sec INR 1.9 H (<1.2) Creatinine 0.52 L (0.66-1.25) mg/dL Glucose 147 H (74-99) mg/dL POC Glucose (mg/dL) (75-99) mg/dL Plasma Lactic Acid Fareed (0.7-2.0) mmol/L C-Reactive Protein (<10.0) mg/L 05/28/19 05/28/19 05/28/19 Range/Units 06:47 06:47 06:54 WBC (3.8-10.6) k/uL RBC (4.30-5.90) m/uL Hgb (13.0-17.5) gm/dL Hct (39.0-53.0) % RDW (11.5-15.5) % Plt Count (150-450) k/uL Neutrophils # (1.3-7.7) k/uL Lymphocytes # (1.0-4.8) k/uL ESR 97 H (0-15) mm/hr PT (9.0-12.0) sec INR (<1.2) Creatinine (0.66-1.25) mg/dL Glucose (74-99) mg/dL POC Glucose (mg/dL) 156 H (75-99) mg/dL Plasma Lactic Acid Fareed (0.7-2.0) mmol/L C-Reactive Protein 191.4 H (<10.0) mg/L 05/28/19 05/28/19 05/28/19 Range/Units 08:32 11:51 12:30 WBC (3.8-10.6) k/uL RBC (4.30-5.90) m/uL Hgb (13.0-17.5) gm/dL Hct (39.0-53.0) % RDW (11.5-15.5) % Plt Count (150-450) k/uL Neutrophils # (1.3-7.7) k/uL Lymphocytes # (1.0-4.8) k/uL ESR (0-15) mm/hr PT (9.0-12.0) sec INR (<1.2) Creatinine (0.66-1.25) mg/dL Glucose (74-99) mg/dL POC Glucose (mg/dL) 150 H (75-99) mg/dL Plasma Lactic Acid Fareed 2.2 H* 2.4 H* (0.7-2.0) mmol/L C-Reactive Protein (<10.0) mg/L 05/28/19 05/28/19 05/28/19 Range/Units 16:24 16:49 20:20 WBC (3.8-10.6) k/uL RBC (4.30-5.90) m/uL Hgb (13.0-17.5) gm/dL Hct (39.0-53.0) % RDW (11.5-15.5) % Plt Count (150-450) k/uL Neutrophils # (1.3-7.7) k/uL Lymphocytes # (1.0-4.8) k/uL ESR (0-15) mm/hr PT (9.0-12.0) sec INR (<1.2) Creatinine (0.66-1.25) mg/dL Glucose (74-99) mg/dL POC Glucose (mg/dL) 131 H 148 H (75-99) mg/dL Plasma Lactic Acid Fareed 2.1 H* (0.7-2.0) mmol/L C-Reactive Protein (<10.0) mg/L Assessment and Plan (1) S/P total knee arthroplasty Narrative/Plan: 49-year-old male with an extensive past medical history regarding his degenerative joint disease, and is bicuspid aortic valve. He's had several orthopedic interventions over the years is now had the left total knee arthroplasty. Patient was recovering well and increasing his activity level without great difficulties until he had the significant event where he felt very poorly, he developed shortness of breath and significant tachycardia and diaphoresis. He has noted he was admitted for further evaluation. Seen by cardiology and his echocardiogram was reviewed that does not show any significant changes and there was no notation of any endocarditis. The patient however had the significant event associated with some shortness of breath and significant tachycardia, and the relates he had a similar event after she is other recent surgery. With his prosthetic aortic valve that continues to have some ongoing stenotic murmur, the 4 g hemoglobin drop from his surgery that resulted in some hemodynamic changes precipitating the above events. There is no evidence of any significant underlying infection at this time. The very recent total knee arthroplasty will result in elevated sedimentation rate as well as CRP because surgical intervention. Patient's white cell count is 11 and is only minimally elevated and likes to stress reaction. The minimally elevated lactic acid level was easily attributable to the recent surgical intervention. At this time no evidence of infection would not utilize antibiotic therapy. If primary service thinks appropriate addition of iron therapy to help him recover his hemoglobin in the postoperative timeframe may allow for the resolution of his symptoms. Current Visit: Yes Status: Acute Code(s): Z96.659 - PRESENCE OF UNSPECIFIED ARTIFICIAL KNEE JOINT SNOMED Code(s): 4059768998485 (2) Status post mechanical aortic valve replacement Current Visit: No Status: Chronic Priority: Medium Onset Date: ~12/02/12 Code(s): Z95.2 - PRESENCE OF PROSTHETIC HEART VALVE SNOMED Code(s): 999048310824075 (3) Tachycardia Current Visit: Yes Status: Acute Code(s): R00.0 - TACHYCARDIA, UNSPECIFIED SNOMED Code(s): 0516413
[2019-05-29] MEDS: SODIUM CHLORIDE 0.9% 1,000 ML IV SCH (00:06)
[2019-05-29] MEDS: methylPREDNISolone SOD SUCCI 40 MG/ML 1 ML VIAL IV SCH ×2 (00:06→08:30)
[2019-05-29 06:41] LABS: Glucose,Whole Blood 138 mg/dL (75-99)
[2019-05-29] MEDS: SYMBICORT 160-4.5 MCG INHALER INHALATION SCH (07:30)
[2019-05-29] MEDS: ALBUTEROL NEBULIZED 2.5 MG/3 ML INHALATION SCH (07:30)
[2019-05-29 07:44] VITALS: BP 134/83; PULSE 83; TEMP 97.8
[2019-05-29] MEDS: CHOLECALCIFEROL 400 UNIT TAB PO SCH (08:30)
[2019-05-29] MEDS: DOCUSATE 100 MG CAP PO SCH (08:30)
[2019-05-29] MEDS: METOPROLOL TARTRATE 25 MG TAB PO SCH (08:30)
[2019-05-29] MEDS: FERROUS SULFATE 325 MG TAB PO SCH (08:30)
[2019-05-29] MEDS: PANTOPRAZOLE 40 MG TABLET PO SCH (08:30)
[2019-05-29] MEDS: ASCORBIC ACID 500 MG TAB PO SCH (08:32)
[2019-05-29] MEDS: INSULIN ASPART (NovoLOG) 100 UNIT/ML VIAL SQ SCH (08:32)
[2019-05-29] MEDS: MELOXICAM 7.5 MG TAB PO SCH (08:33)
[2019-05-29 09:15] LABS: INR 3.4 (<1.2); Prothrombin Time 32.4 sec (9.0-12.0)
[2019-05-29 09:27] LABS: Anisocytosis Slight; Basophils % (A) 0 %; Eosinophils % (A) 0 %; HCT 27.8 % (39.0-53.0); HGB 8.6 gm/dL (13.0-17.5); Hypochromasia Marked; Lymphocytes % (A) 8 %; MCH 28.1 pg (25.0-35.0); MCHC 30.9 g/dL (31.0-37.0); Mean Platelet Volume 7.1; Monocytes # (A) 0.6 k/uL (0-1.0); Monocytes % (A) 5 %; Neutrophils # (A) 11.7 k/uL (1.3-7.7); Neutrophils % (A) 87 %; Platelet Count 485 k/uL (150-450); Poikilocytosis Moderate; RBC 3.06 m/uL (4.30-5.90); RDW 16.1 % (11.5-15.5); WBC 13.5 k/uL (3.8-10.6)
[2019-05-29 09:30] LABS: African American GFR (CKD) >90 (>60 ml/min/1.73 sqM); Anion Gap 8 mmol/L; Blood Urea Nitrogen 20 mg/dL (9-20); Calcium 8.7 mg/dL (8.4-10.2); Carbon Dioxide 26 mmol/L (22-30); Chloride 106 mmol/L (98-107); Glucose 133 mg/dL (74-99); Potassium 4.3 mmol/L (3.5-5.1); Sodium 140 mmol/L (137-145)
--- NOTE | 2019-05-29 10:27 | CDI ---
Documentation Clarification Form Date: 05/29/2019 10:16:07 AM From: Sonia Salas RN, CCDS Admit Date: 05/28/2019 9:43:00 AM Patient Name: Riley Meadows Visit Number: [id number] ATTENTION: The Clinical Documentation Specialists (CDI) and [facility] Coding Staff appreciate your assistance in clarifying documentation. Please respond to the clarification below the line at the bottom and electronically sign. The CDI & [facility] Coding staff will review the response and follow-up if needed. Please note: Queries are made part of the Legal Health Record. If you have any questions, please contact the author of this message via ITS. Dr. Darnell Dominguez A diagnosis of "anemia, normocytic, multifactorial" lacks specificity to accurately reflect your patients severity of condition and clarification is needed. History/Risk Factors: Recent TKA, Hx of DVT Clinical indicators: Hemoglobin: 8.7/9.2/9.1/8.6 Hematocrit: 27.2/28.8/28.6/27.8 Treatment: Monitoring labs PO ASA, PO Coumadin Feosol 325 mg PO BID In order to capture the severity of condition, please clarify the type of anemia and etiology if known: Acute blood loss anemia Acute on chronic blood loss anemia Chronic blood loss anemia Iron deficiency anemia Drug induced anemia Nutritional anemia Anemia of chronic disease Unable to determine Other, please specify (Last Revision: July 2017) Acute on chronic blood loss anemia MTDD
--- NOTE | 2019-05-29 10:36 | CDI ---
Documentation Clarification Form Date: 05/29/2019 10:27:29 AM From: Sonia Salas RN, CCDS Admit Date: 05/28/2019 9:43:00 AM Patient Name: Riley Meadows Visit Number: [id number] ATTENTION: The Clinical Documentation Specialists (CDI) and [facility] Coding Staff appreciate your assistance in clarifying documentation. Please respond to the clarification below the line at the bottom and electronically sign. The CDI & [facility] Coding staff will review the response and follow-up if needed. Please note: Queries are made part of the Legal Health Record. If you have any questions, please contact the author of this message via ITS. Dr. Darnell Dominguez Acute asthmatic exacerbation is documented and requires additional specificity. History/risk factors: Asthma, Anemia, DVT, Obesity with bariatric surgery, Pneumonia, SHADI, bicuspid aortic valve Clinical Indicators: CXR and CT chest both negative Vital Signs: temp 98.5, HR 142, RR 20, B/P 122/87, Spo2 99% Ra Treatment: Medication: Ventolin INH TID and PRN, Symbicort INH BID, IV Solumedrol Consults: No pulmonary Consult In your professional opinion, can you please further specify the following, if known? With Acute Exacerbation, Severity cc Mild persistent Moderate persistent Severe persistent Other, please specify ____ Unable to determine Form or Type Cough variant Childhood Exercise induced bronchospasm Extrinsic allergic Idiosyncratic Intrinsic nonallergic Late-onset Mixed Other, please specify____ Unable to determine (Last Revision: January 2018) Mild intermittent MTDD
[2019-05-29] MEDS ORDERED: WARFARIN 5 MG TAB PO SCH (18:00)
--- NOTE | 2019-05-30 00:02 | DS ---
DISCHARGE SUMMARY DATE OF SERVICE: 05/29/2019. FINAL DIAGNOSES: 1. Shortness of breath on presentation, possibly multifactorial possibly secondary to acute asthma bronchial asthma exacerbation as well as anemia. 2. CT scan negative for pulmonary embolism with elevated D-dimer. 3. History of recent left total knee arthroplasty. 4. Elevated lactic acid. 5. Increased WBC. No evidence of sepsis. 6. Sepsis ruled out. 7. Increased ESR CRP. 8. Coumadin monitoring. 9. Anemia normocytic, multifactorial. 10.Increased WBC present on admission. 11.History of deep vein thrombosis. 12.Gastroesophageal reflux disease. 13.Hyperlipidemia. 14.History of memory impairment. 15.History of degenerative joint disease. 16.History of pneumonia. 17.History of sleep apnea. 18.History of bicuspid aortic valve. 19.History of CPAP. 20.History of back surgery. 21.History of bariatric surgery. 22.History of degenerative joint disease. 23.History of left total knee arthroplasty. 24.History of gastric band surgery. RECOMMENDATIONS AND DISCUSSION: I recommend to continue current medications. Continue with monitoring. DISCHARGE DISPOSITION: The patient will be discharged in stable condition with guarded prognosis. HISTORY OF PRESENT ILLNESS: This 49-year-old gentleman with a past medical history of multiple medical problems was admitted with shortness of breath. The patient had multiple evaluations which were basically negative. Patient treated symptomatically. Patient improved significantly. Dr. Pierre has also seen the patient and the possibility of sepsis thought to be unlikely. On exam, vitals are stable. Cardiovascular: S1, S2. Abdomen soft. Nervous system: No focal deficits. DISCHARGE ADVICE AND MEDICATIONS: 1. Diet is cardiac diet. 2. Activity limited until followup. 3. Follow up with Dr. Bender in 1-2 days. 4. Follow up with Orthopedic surgery as recommended. 5. Follow up with Infectious Disease as recommended. DISCHARGE MEDICATIONS: 1. Testosterone one application Wednesday, Wednesday, Wednesday. 2. Coumadin 2.5 mg as before. 3. Lipitor 40 mg q.h.s. 4. Eastman 7.5 q.6h p.r.n. 5. Omeprazole 40 mg p.o. b.i.d. 6. Vitamin C 500 mg daily. 7. Vitamin D3 500 units daily. 8. Colace 100 mg daily p.r.n. 9. Iron sulfate 320 mg p.o. b.i.d. 10.Lopressor 25 mg p.o. b.i.d. 11.Medrol Dosepak. 12.Mobic as p.r.n. 13.Nitrostat 0.4 sublingual p.r.n. 14.Silvadene cream for local application. 15.Symbicort 160/4.5 two puffs b.i.d. 16.Ultram 50 mg q.6h p.r.n. 17.Ventolin HFA 2 puffs q.6h p.r.n. Once again, the patient is being discharged in stable and guarded prognosis. Serum uric acid was found to be normal at 5.7. MMODL / IJN: [id number] /
[2019-05-30] MEDS ORDERED: WARFARIN 2.5 MG TAB PO SCH (18:00)
[2019-06-01] MEDS ORDERED: WARFARIN 2.5 MG TAB PO SCH (18:00)
== END 2019-05-29 11:50 | disposition home or self-care (01) | DRG 202 ==
LOC: EC 19:13 → 1SOBS 21:57 → OBSVTOIN 05-28 09:43
PROVIDERS: ADMIT Hospitalist; ATTEND Hospitalist
DX: J45.21 Mild intermittent asthma with (acute) exacerbation (principal); D62 Acute posthemorrhagic anemia; I08.1 Rheumatic disorders of both mitral and tricuspid valves; E78.5 Hyperlipidemia, unspecified; F43.9 Reaction to severe stress, unspecified; G47.33 Obstructive sleep apnea (adult) (pediatric); K21.9 Gastro-esophageal reflux disease without esophagitis; M19.90 Unspecified osteoarthritis, unspecified site; M25.562 Pain in left knee; R07.89 Other chest pain; D72.829 Elevated white blood cell count, unspecified; R77.9 Abnormality of plasma protein, unspecified; Z79.01 Long term (current) use of anticoagulants; Z79.1 Long term (current) use of non-steroidal anti-inflammatories (NSAID); Z79.899 Other long term (current) drug therapy; Z98.84 Bariatric surgery status; Z86.718 Personal history of other venous thrombosis and embolism; Z87.01 Personal history of pneumonia (recurrent); Z95.2 Presence of prosthetic heart valve; Z96.652 Presence of left artificial knee joint; Z88.8 Allergy status to other drugs, medicaments and biological substances; Z86.79 Personal history of other diseases of the circulatory system
CPT/HCPCS: 36415; 71045; 71275; 80048; 80053; 81003; 83605; 83735; 83880; 84443; 84484; 84550; 85025; 85379; 85610; 85652; 85730; 86140; 87040; 93005; 93306; 93970; 94760; 96374; 99285

== ENCOUNTER 2019-09-28 02:21 | Emergency (ER) | payer BC, MEDICAID ==
[2019-09-28] MEDS ORDERED: ONDANSETRON 4 MG/2 ML VIAL IVP STA (02:36)
[2019-09-28] MEDS ORDERED: FAMOTIDINE 20 MG/2 ML VIAL IV STA (02:36)
[2019-09-28 03:01] LABS: Basophils % (A) 0 %; Eosinophils # (A) 0.4 k/uL (0-0.7); Eosinophils % (A) 5 %; HCT 38.6 % (39.0-53.0); Lymphocytes # (A) 1.6 k/uL (1.0-4.8); Lymphocytes % (A) 21 %; MCH 28.5 pg (25.0-35.0); MCHC 33.6 g/dL (31.0-37.0); MCV 84.7 fL (80.0-100.0); Mean Platelet Volume 8.6; Monocytes # (A) 0.6 k/uL (0-1.0); Monocytes % (A) 7 %; Neutrophils # (A) 4.8 k/uL (1.3-7.7); Neutrophils % (A) 65 %; Platelet Count 158 k/uL (150-450); RBC 4.56 m/uL (4.30-5.90); RDW 15.1 % (11.5-15.5); WBC 7.5 k/uL (3.8-10.6)
--- NOTE | 2019-09-28 03:06 | ED ---
General Adult HPI - General Chief complaint: Chest Pain Stated complaint: Chest discomfort Time Seen by Provider: 09/28/19 02:30 Source: patient, family Mode of arrival: ambulatory Limitations: no limitations - History of Present Illness Initial comments: 49-year-old male patient presents to the emergency department today for evaluation of chest pressure. Patient states a couple of hours ago he woke from sleep with significant pressure to the center of his chest. He does have history of artificial valve and thoracic aneurysm repair. Patient denies any shortness of breath with this but states he has been quite nauseated. States that he feels like he could vomit at any moment but has not. He denies any abdominal pain, back pain, dizziness, or weakness. Denies any sweats with this. Denies history of similar symptoms. Does have a history of high cholesterol and takes a rate controller metoprolol. Denies any known history of coronary artery disease, diabetes, or hypertension. Patient denies any recent rash, fever, chills, diarrhea, constipation, back pain, numbness, tingling, hematuria, dysuria, urinary urgency, urinary frequency, headache, visual changes, or any other complaints. - Related Data Home Medications Medication Instructions Recorded Confirmed Ascorbic Acid [Vitamin C] 500 mg PO DAILY 03/02/17 05/26/19 Atorvastatin [Lipitor] 40 mg PO HS 03/02/17 05/26/19 Omeprazole 40 mg PO BID 03/02/17 05/26/19 Testosterone [Androgel 1.62% Gel 1 applic TOPICAL MOWEFR 06/20/17 05/26/19 Pump] Cholecalciferol (Vitamin D3) 500 unit PO DAILY 05/09/19 05/26/19 [Vitamin D3] Warfarin [Coumadin] 2.5 mg PO DIRECTED 05/09/19 05/26/19 HYDROcodone/APAP 7.5-325MG [[place] 1 - 2 tab PO Q6HR PRN 05/26/19 05/26/19 7.5-325] Previous Rx's Medication Instructions Recorded Nitroglycerin Sl Tabs [Nitrostat] 0.4 mg SUBLINGUAL Q5M PRN tab 06/21/17 Docusate [Colace] 100 mg PO DAILY #30 capsule 05/17/19 Ferrous Sulfate [Feosol] 325 mg PO BID #30 tab 05/17/19 traMADol HCl [Ultram] 50 mg PO Q6H PRN #28 tab 05/17/19 Albuterol Inhaler [Ventolin Hfa 2 puff INHALATION RT-Q6H #1 05/29/19 Inhaler] Budesonide-Formot 160-4.5 Mcg 2 puff INHALATION RT-BID #1 puff 05/29/19 [Symbicort 160-4.5 Mcg Inhaler] Meloxicam [Mobic] 15 mg PO DAILY tab 05/29/19 Metoprolol Tartrate [Lopressor] 25 mg PO BID #60 tab 05/29/19 SILVER sulfADIAZINE CREAM 1 applic TOPICAL DAILY #1 applic 05/29/19 [Silvadene Cream] methylPREDNISolone Dose Pack 4 mg PO DIRECTED #21 package 05/29/19 [Medrol Dose Pack] Allergies Allergy/AdvReac Type Severity Reaction Status Date / Time phenobarbital AdvReac Hyperactivi Verified 09/28/19 02:27 ty testosterone AdvReac Joint Pain Verified 09/28/19 02:27 with Injection only Review of Systems ROS Statement: Those systems with pertinent positive or pertinent negative responses have been documented in the HPI. ROS Other: All systems not noted in ROS Statement are negative. 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 CPAP use. Hx DVT right leg 2 yrs ago. Hx pneumonia a long time ago. "Poor memory." History of Any Multi-Drug Resistant Organisms: None Reported Past Surgical History: Back Surgery, Bariatric Surgery, Bladder Surgery, Cardiac Valve Replacement, Orthopedic Surgery Additional Past Surgical History / Comment(s): L TKA, Left knee scope X 2, Right knee pinning, GASTRIC BAND SURGERY, aortic valve replacement with mechanical valve, repair of arterial aneurysm right radial arteryleft knee repl Past Anesthesia/Blood Transfusion Reactions: Postoperative Nausea & Vomiting (PONV) Past Psychological History: No Psychological Hx Reported Smoking Status: Never smoker Past Alcohol Use History: Occasional Past Drug Use History: None Reported - Past Family History Mother Additional Family Medical History / Comment(s): B/L knee replacement. Father Family Medical History: Diabetes Mellitus Additional Family Medical History / Comment(s): Cardiac issues. General Exam Limitations: no limitations General appearance: alert, in no apparent distress, other (This is a well- developed, well-nourished adult male patient in no acute distress. Vital signs upon presentation are temperature 98.9F, pulse 78, respiration 16, blood pressure 160/96, pulse ox 98% on room air.) Respiratory exam: Present: normal lung sounds bilaterally. Absent: respiratory distress, wheezes, rales, rhonchi, stridor Cardiovascular Exam: Present: regular rate, normal rhythm, normal heart sounds. Absent: systolic murmur, diastolic murmur, rubs, gallop, clicks GI/Abdominal exam: Present: soft, normal bowel sounds. Absent: distended, tenderness, guarding, rebound, rigid Neurological exam: Present: alert, oriented X3, CN II-XII intact Psychiatric exam: Present: normal affect, normal mood Skin exam: Present: warm, dry, intact, normal color. Absent: rash Course Vital Signs 09/28/19 09/28/19 09/28/19 02:24 03:00 03:30 Temperature 98.9 F Pulse Rate 78 76 76 Respiratory 16 18 13 Rate Blood Pressure 168/96 139/96 139/88 O2 Sat by Pulse 98 98 99 Oximetry 09/28/19 09/28/19 09/28/19 04:00 04:30 05:00 Temperature Pulse Rate 64 59 L 59 L Respiratory 19 16 17 Rate Blood Pressure 138/84 135/87 136/86 O2 Sat by Pulse 97 98 98 Oximetry 09/28/19 09/28/19 05:30 06:08 Temperature 97.9 F Pulse Rate 63 84 Respiratory 17 18 Rate Blood Pressure 142/87 136/81 O2 Sat by Pulse 98 97 Oximetry EKG Findings - EKG Comments: EKG Findings:: EKG obtained at 0232 shows normal sinus rhythm with a ventricular rate of 75, TX interval 182, QRS duration 98, QT 372, QTc 4:15. No evidence of ST elevation or depression. Medical Decision Making - Medical Decision Making 49-year-old male patient presents to the emergency department today for evaluation of chest pressure and nausea. Physical examination was relatively unremarkable. Labs reviewed and were unremarkable. Patient does have history of valve replacement and repair of a thoracic aortic aneurysm. Patient did receive IV fluids, Pepcid, and Zofran here in the department. Upon reevaluation does report complete improvement of symptoms. We did repeat troponin which was again negative. He will be discharged home to follow-up with his primary care physician his basic sciences professor for further evaluation as soon as possible. Return parameters were discussed in detail. He verbalizes understanding and agrees with this plan. - Lab Data Result diagrams: 09/28/19 02:40 09/28/19 02:40 Lab Results 09/28/19 09/28/19 09/28/19 Range/Units 02:40 02:40 02:40 WBC 7.5 (3.8-10.6) k/uL RBC 4.56 (4.30-5.90) m/uL Hgb 13.0 (13.0-17.5) gm/dL Hct 38.6 L (39.0-53.0) % MCV 84.7 (80.0-100.0) fL MCH 28.5 (25.0-35.0) pg MCHC 33.6 (31.0-37.0) g/dL RDW 15.1 (11.5-15.5) % Plt Count 158 (150-450) k/uL Neutrophils % 65 % Lymphocytes % 21 % Monocytes % 7 % Eosinophils % 5 % Basophils % 0 % Neutrophils # 4.8 (1.3-7.7) k/uL Lymphocytes # 1.6 (1.0-4.8) k/uL Monocytes # 0.6 (0-1.0) k/uL Eosinophils # 0.4 (0-0.7) k/uL Basophils # 0.0 (0-0.2) k/uL PT 19.4 H (9.0-12.0) sec INR 2.0 H (<1.2) APTT 41.0 H (22.0-30.0) sec Sodium 139 (137-145) mmol/L Potassium 4.2 (3.5-5.1) mmol/L Chloride 103 (98-107) mmol/L Carbon Dioxide 30 (22-30) mmol/L Anion Gap 6 mmol/L BUN 17 (9-20) mg/dL Creatinine 0.67 (0.66-1.25) mg/dL Est GFR (CKD-EPI)AfAm >90 (>60 ml/min/1.73 sqM) Est GFR (CKD-EPI)NonAf >90 (>60 ml/min/1.73 sqM) Glucose 98 (74-99) mg/dL Calcium 8.8 (8.4-10.2) mg/dL Magnesium 1.9 (1.6-2.3) mg/dL Total Bilirubin 0.7 (0.2-1.3) mg/dL AST 29 (17-59) U/L ALT 25 (4-49) U/L Alkaline Phosphatase 103 (38-126) U/L Troponin I (0.000-0.034) ng/mL Total Protein 6.6 (6.3-8.2) g/dL Albumin 3.9 (3.5-5.0) g/dL 09/28/19 09/28/19 Range/Units 02:40 04:49 WBC (3.8-10.6) k/uL RBC (4.30-5.90) m/uL Hgb (13.0-17.5) gm/dL Hct (39.0-53.0) % MCV (80.0-100.0) fL MCH (25.0-35.0) pg MCHC (31.0-37.0) g/dL RDW (11.5-15.5) % Plt Count (150-450) k/uL Neutrophils % % Lymphocytes % % Monocytes % % Eosinophils % % Basophils % % Neutrophils # (1.3-7.7) k/uL Lymphocytes # (1.0-4.8) k/uL Monocytes # (0-1.0) k/uL Eosinophils # (0-0.7) k/uL Basophils # (0-0.2) k/uL PT (9.0-12.0) sec INR (<1.2) APTT (22.0-30.0) sec Sodium (137-145) mmol/L Potassium (3.5-5.1) mmol/L Chloride (98-107) mmol/L Carbon Dioxide (22-30) mmol/L Anion Gap mmol/L BUN (9-20) mg/dL Creatinine (0.66-1.25) mg/dL Est GFR (CKD-EPI)AfAm (>60 ml/min/1.73 sqM) Est GFR (CKD-EPI)NonAf (>60 ml/min/1.73 sqM) Glucose (74-99) mg/dL Calcium (8.4-10.2) mg/dL Magnesium (1.6-2.3) mg/dL Total Bilirubin (0.2-1.3) mg/dL AST (17-59) U/L ALT (4-49) U/L Alkaline Phosphatase (38-126) U/L Troponin I <0.012 <0.012 (0.000-0.034) ng/mL Total Protein (6.3-8.2) g/dL Albumin (3.5-5.0) g/dL - Radiology Data Radiology results: report reviewed, image reviewed Disposition Clinical Impression: Chest pain Disposition: HOME SELF-CARE Condition: Good Instructions (If sedation given, give patient instructions): Chest Pain (ED) Additional Instructions: Follow up with your primary care physician for recheck in 1-2 days. Follow with your basic sciences professor for further evaluation as soon as possible. Return to the emergency department for any new, worsening, or concerning symptoms. Is patient prescribed a controlled substance at d/c from ED?: No Referrals: Bar Bender DO [Primary Care Provider] - 1-2 days
[2019-09-28 03:14] LABS: Prothrombin Time 19.4 sec (9.0-12.0)
[2019-09-28 03:23] LABS: ALT 25 U/L (4-49); AST 29 U/L (17-59); African American GFR (CKD) >90 (>60 ml/min/1.73 sqM); Albumin 3.9 g/dL (3.5-5.0); Alkaline Phosphatase 103 U/L (38-126); Anion Gap 6 mmol/L; Blood Urea Nitrogen 17 mg/dL (9-20); Calcium 8.8 mg/dL (8.4-10.2); Carbon Dioxide 30 mmol/L (22-30); Chloride 103 mmol/L (98-107); Glucose 98 mg/dL (74-99); Magnesium 1.9 mg/dL (1.6-2.3); Non-African American GFR(CKD) >90 (>60 ml/min/1.73 sqM); Potassium 4.2 mmol/L (3.5-5.1); Sodium 139 mmol/L (137-145); Total Bilirubin 0.7 mg/dL (0.2-1.3); Total Protein 6.6 g/dL (6.3-8.2)
--- NOTE | 2019-09-28 03:34 | XR ---
EXAMINATION TYPE: XR chest 2V DATE OF EXAM: 09/28/2019 COMPARISON: 05/27/2019 HISTORY: Short of breath TECHNIQUE: 2 views FINDINGS: Heart is normal. Lungs are clear of consolidation. There is no heart failure. There are emily rnal wires. Costophrenic angles are clear. There is cardiac valve surgery. IMPRESSION: No active cardiopulmonary disease. No significant change.
[2019-09-28 06:09] VITALS: BP 136/81; PULSE 84; RESP 18; TEMP 97.9
== END 2019-09-28 06:09 | disposition home or self-care (01) ==
LOC: EC 02:21
DX: R07.89 Other chest pain (principal); R11.0 Nausea; I71.2 Thoracic aortic aneurysm, without rupture; E78.00 Pure hypercholesterolemia, unspecified; E78.5 Hyperlipidemia, unspecified; K21.9 Gastro-esophageal reflux disease without esophagitis; G47.30 Sleep apnea, unspecified; M19.90 Unspecified osteoarthritis, unspecified site; Z79.01 Long term (current) use of anticoagulants; Z79.899 Other long term (current) drug therapy; Z88.8 Allergy status to other drugs, medicaments and biological substances; Z96.653 Presence of artificial knee joint, bilateral; Z95.2 Presence of prosthetic heart valve; Z86.718 Personal history of other venous thrombosis and embolism; Z99.89 Dependence on other enabling machines and devices; Z98.84 Bariatric surgery status
CPT/HCPCS: 36415; 93005; 80053; 83735; 84484; 85025; 85610; 85730; 71046; 99285; 96374; 96375; J2405

== ENCOUNTER 2019-10-31 19:12 | Emergency (ER) | payer BC, MEDICAID ==
[2019-10-31 19:39] VITALS: RESP 18; TEMP 99.2
--- NOTE | 2019-10-31 20:34 | XR ---
EXAMINATION TYPE: XR knee complete LT DATE OF EXAM: 10/31/2019 COMPARISON: 05/16/2019 HISTORY: Knee pain and swelling TECHNIQUE: 3 views FINDINGS: There is left knee prosthesis. There is a large knee joint effusion. I see no fracture nor dislocation. Components appear in anatomic position. IMPRESSION: Large joint effusion. No fracture seen.
--- NOTE | 2019-10-31 21:10 | ED ---
Extremity Problem HPI - General Chief complaint: Extremity Problem,Nontraumatic Stated complaint: left knee pain Time Seen by Provider: 10/31/19 20:46 Source: patient Mode of arrival: ambulatory Limitations: no limitations - History of Present Illness Initial comments: Patient is a 49-year-old male presenting to the emergency department with chief complaint of left knee pain. Patient reports the left knee arthroplasty about 6 months ago and had no issues with his left knee since. Patient reports today he was going to his parents house and noticed gradual swelling of the left knee. Patient reports afterwards he went to the grocery store and when he walked the swelling and pain has drastically increased. Patient reports all his symptoms have occurred within 5 hour period. Patient denies erythema but states the pain is exacerbated with ambulation flexion or extension. States the pain is localized to the knee without any radiation. Denies any traumatic injuries. - Related Data Home Medications Medication Instructions Recorded Confirmed Ascorbic Acid [Vitamin C] 500 mg PO DAILY 03/02/17 05/26/19 Atorvastatin [Lipitor] 40 mg PO HS 03/02/17 05/26/19 Omeprazole 40 mg PO BID 03/02/17 05/26/19 Testosterone [Androgel 1.62% Gel 1 applic TOPICAL MOWEFR 06/20/17 05/26/19 Pump] Cholecalciferol (Vitamin D3) 500 unit PO DAILY 05/09/19 05/26/19 [Vitamin D3] Warfarin [Coumadin] 2.5 mg PO DIRECTED 05/09/19 05/26/19 HYDROcodone/APAP 7.5-325MG [[place] 1 - 2 tab PO Q6HR PRN 05/26/19 05/26/19 7.5-325] Previous Rx's Medication Instructions Recorded Nitroglycerin Sl Tabs [Nitrostat] 0.4 mg SUBLINGUAL Q5M PRN tab 06/21/17 Docusate [Colace] 100 mg PO DAILY #30 capsule 05/17/19 Ferrous Sulfate [Feosol] 325 mg PO BID #30 tab 05/17/19 traMADol HCl [Ultram] 50 mg PO Q6H PRN #28 tab 05/17/19 Albuterol Inhaler [Ventolin Hfa 2 puff INHALATION RT-Q6H #1 05/29/19 Inhaler] Budesonide-Formot 160-4.5 Mcg 2 puff INHALATION RT-BID #1 puff 05/29/19 [Symbicort 160-4.5 Mcg Inhaler] Meloxicam [Mobic] 15 mg PO DAILY tab 05/29/19 Metoprolol Tartrate [Lopressor] 25 mg PO BID #60 tab 05/29/19 SILVER sulfADIAZINE CREAM 1 applic TOPICAL DAILY #1 applic 05/29/19 [Silvadene Cream] methylPREDNISolone Dose Pack 4 mg PO DIRECTED #21 package 05/29/19 [Medrol Dose Pack] Allergies Allergy/AdvReac Type Severity Reaction Status Date / Time phenobarbital AdvReac Hyperactivi Verified 09/28/19 02:27 ty testosterone AdvReac Joint Pain Verified 09/28/19 02:27 with Injection only Review of Systems ROS Statement: Those systems with pertinent positive or pertinent negative responses have been documented in the HPI. ROS Other: All systems not noted in ROS Statement are negative. 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 CPAP use. Hx DVT right leg 2 yrs ago. Hx pneumonia a long time ago. "Poor memory." History of Any Multi-Drug Resistant Organisms: None Reported Past Surgical History: Back Surgery, Bariatric Surgery, Bladder Surgery, Cardiac Valve Replacement, Orthopedic Surgery Additional Past Surgical History / Comment(s): L TKA, Left knee scope X 2, Right knee pinning, GASTRIC BAND SURGERY, aortic valve replacement with mechanical valve, repair of arterial aneurysm right radial arteryleft knee repl Past Anesthesia/Blood Transfusion Reactions: Postoperative Nausea & Vomiting (PONV) Past Psychological History: No Psychological Hx Reported Smoking Status: Never smoker Past Alcohol Use History: Occasional Past Drug Use History: None Reported - Past Family History Mother Additional Family Medical History / Comment(s): B/L knee replacement. Father Family Medical History: Diabetes Mellitus Additional Family Medical History / Comment(s): Cardiac issues. General Exam Limitations: no limitations General appearance: alert, in no apparent distress Head exam: Present: atraumatic, normocephalic, normal inspection Eye exam: Present: normal appearance, PERRL, EOMI Pupils: Present: normal accommodation ENT exam: Present: normal exam, mucous membranes moist Neck exam: Present: normal inspection, full ROM Respiratory exam: Present: normal lung sounds bilaterally Cardiovascular Exam: Present: regular rate, normal rhythm, normal heart sounds Extremities exam: Present: tenderness (Tenderness at the left knee.), normal capillary refill, joint swelling (Left knee), other (+2 dorsalis pedis and posterior tibialis bilaterally.). Absent: normal inspection (Moderate swelling of the left knee. Not erythematous.), full ROM (Limited range of motion with flexion and extension of knee.), calf tenderness (Negative Homans bilaterally.) Back exam: Present: normal inspection, full ROM Neurological exam: Present: alert, oriented X3 Psychiatric exam: Present: normal affect, normal mood Skin exam: Present: warm, dry, intact, normal color Course Vital Signs 10/31/19 10/31/19 19:34 22:17 Temperature 99.2 F Pulse Rate 81 74 Respiratory 18 18 Rate Blood Pressure 182/95 152/93 O2 Sat by Pulse 98 99 Oximetry Medical Decision Making - Medical Decision Making Patient is a 49-year-old male presenting to the emergency department if complaint of left knee pain and swelling. On initial evaluation patient was offered analgesia but he declined. He does have the left-sided of the left knee. No erythema discharge or any kind. Low suspicion for septic arthritis. Patient did have arthroplasty on the knee about 8 months ago but has had no issues until now. Patient denies any traumatic injuries to the knee. He states the symptoms occurred within a period. X-ray of the left knee shows moderate amount of effusion. Laboratory work is unremarkable. Mild elevation in CRP to 16.9. Patient really has an apartment scheduled to see his orthopedic surgeon. Patient was given analgesia on reevaluation after he requested. Strict return parameters were thoroughly discussed with patient is a 17 agreeable. Case discussed with physician. - Lab Data Result diagrams: 10/31/19 21:36 10/31/19 21:36 Lab Results 10/31/19 10/31/19 Range/Units 21:36 21:36 WBC 9.5 (3.8-10.6) k/uL RBC 4.51 (4.30-5.90) m/uL Hgb 12.6 L (13.0-17.5) gm/dL Hct 38.6 L (39.0-53.0) % MCV 85.6 (80.0-100.0) fL MCH 28.0 (25.0-35.0) pg MCHC 32.7 (31.0-37.0) g/dL RDW 14.4 (11.5-15.5) % Plt Count 163 (150-450) k/uL Neutrophils % 81 % Lymphocytes % 13 % Monocytes % 4 % Eosinophils % 2 % Basophils % 0 % Neutrophils # 7.7 (1.3-7.7) k/uL Lymphocytes # 1.2 (1.0-4.8) k/uL Monocytes # 0.3 (0-1.0) k/uL Eosinophils # 0.2 (0-0.7) k/uL Basophils # 0.0 (0-0.2) k/uL Sodium 139 (137-145) mmol/L Potassium 4.0 (3.5-5.1) mmol/L Chloride 107 (98-107) mmol/L Carbon Dioxide 24 (22-30) mmol/L Anion Gap 8 mmol/L BUN 14 (9-20) mg/dL Creatinine 0.57 L (0.66-1.25) mg/dL Est GFR (CKD-EPI)AfAm >90 (>60 ml/min/1.73 sqM) Est GFR (CKD-EPI)NonAf >90 (>60 ml/min/1.73 sqM) Glucose 102 H (74-99) mg/dL Calcium 8.9 (8.4-10.2) mg/dL Total Bilirubin 0.8 (0.2-1.3) mg/dL AST 21 (17-59) U/L ALT 12 (4-49) U/L Alkaline Phosphatase 85 (38-126) U/L C-Reactive Protein 16.9 H (<10.0) mg/L Total Protein 6.8 (6.3-8.2) g/dL Albumin 4.0 (3.5-5.0) g/dL Disposition Clinical Impression: Knee effusion, left, Swelling of left knee joint, Left knee pain Disposition: HOME SELF-CARE Condition: Stable Instructions (If sedation given, give patient instructions): Swollen Knee Joint (ED) Additional Instructions: Alternate between Motrin Tylenol for pain. Keep the leg elevated and apply ice compress to minimize symptoms. Continue to the appointment with your orthopedic surgeon. Return to emergency department if symptoms worsen. Is patient prescribed a controlled substance at d/c from ED?: No Referrals: Bar Bender DO [Primary Care Provider] - 1-2 days Time of Disposition: 22:41
[2019-10-31 21:53] LABS: Basophils % (A) 0 %; Eosinophils # (A) 0.2 k/uL (0-0.7); Eosinophils % (A) 2 %; HCT 38.6 % (39.0-53.0); HGB 12.6 gm/dL (13.0-17.5); Lymphocytes # (A) 1.2 k/uL (1.0-4.8); Lymphocytes % (A) 13 %; MCHC 32.7 g/dL (31.0-37.0); MCV 85.6 fL (80.0-100.0); Mean Platelet Volume 8.3; Monocytes # (A) 0.3 k/uL (0-1.0); Monocytes % (A) 4 %; Neutrophils # (A) 7.7 k/uL (1.3-7.7); Neutrophils % (A) 81 %; Platelet Count 163 k/uL (150-450); RBC 4.51 m/uL (4.30-5.90); RDW 14.4 % (11.5-15.5); WBC 9.5 k/uL (3.8-10.6)
[2019-10-31 22:07] LABS: ALT 12 U/L (4-49); AST 21 U/L (17-59); African American GFR (CKD) >90 (>60 ml/min/1.73 sqM); Alkaline Phosphatase 85 U/L (38-126); Anion Gap 8 mmol/L; Blood Urea Nitrogen 14 mg/dL (9-20); C Reactive Protein 16.9 mg/L (<10.0); Calcium 8.9 mg/dL (8.4-10.2); Carbon Dioxide 24 mmol/L (22-30); Chloride 107 mmol/L (98-107); Glucose 102 mg/dL (74-99); Non-African American GFR(CKD) >90 (>60 ml/min/1.73 sqM); Sodium 139 mmol/L (137-145); Total Bilirubin 0.8 mg/dL (0.2-1.3); Total Protein 6.8 g/dL (6.3-8.2)
[2019-10-31] MEDS ORDERED: Acetaminophen-Codeine 300-30mg TAB PO STA (22:11)
[2019-10-31 22:19] VITALS: BP 152/93; PULSE 74
== END 2019-10-31 22:59 | disposition home or self-care (01) ==
LOC: EC 19:12
DX: M25.462 Effusion, left knee (principal); R79.89 Other specified abnormal findings of blood chemistry; Z96.652 Presence of left artificial knee joint; K21.9 Gastro-esophageal reflux disease without esophagitis; E78.5 Hyperlipidemia, unspecified; M19.90 Unspecified osteoarthritis, unspecified site; G47.30 Sleep apnea, unspecified; Z88.8 Allergy status to other drugs, medicaments and biological substances; Z79.01 Long term (current) use of anticoagulants; Z79.890 Hormone replacement therapy; Z79.899 Other long term (current) drug therapy; Z86.718 Personal history of other venous thrombosis and embolism; Z86.79 Personal history of other diseases of the circulatory system; Z95.2 Presence of prosthetic heart valve; Z99.89 Dependence on other enabling machines and devices; Z82.69 Family history of other diseases of the musculoskeletal system and connective tissue; Z53.20 Procedure and treatment not carried out because of patient's decision for unspecified reasons
CPT/HCPCS: 36415; 80053; 85025; 86140; 99283

== ENCOUNTER → 2020-03-10 | Outpatient (CLI) | payer BC, MEDICAID ==
--- NOTE | 2020-03-10 14:29 | CT ---
CT CHEST FOR PULMONARY EMBOLISM. EXAMINATION TYPE: CT angio chest DATE OF EXAM: 03/10/2020 INDICATION: follow up thoracic aortic aneurysm repair CT DLP: 1245.6 mGycm, Automated exposure control for dose reduction was used. CONTRAST: Patient injected with 100 mL of Isovue 370. COMPARISON: 06/20/2017 TECHNIQUE: Pre and postcontrast imaging is performed. CT of the chest is performed on a spiral scan a t 2 mm thick sections. Study is performed for evaluation of the aorta. This will limit additional por tions of the evaluation. 3-D MIP images reconstructed by the technologist are reviewed on the [facility] in the coronal and sagittal planes. FINDINGS: Three-D reconstructed images of the aorta are present. There is a three-vessel arch. The band is pres ent at the aortic root. No dissection is identified within the [id number] within the aorta. The ao rta above the aortic root at the level of the coronary vessels measures 4.4 cm. This tapers through t he remaining portion of the aorta. This is Stable from 2017. No mediastinal or hilar adenopathy enlarged by CT criteria is evident. The ascending aorta diameter at the level of the main pulmonary artery is 3.5 cm. The main pulmonary artery diameter at the bifur cation is 2.6 cm. Coronary artery calcifications present. Lung windows are clear. There is a fluid-filled dilated esophagus extending to the thoracic inlet. A lap band is evident. Limited CT section through the upper abdomen are unremarkable. IMPRESSIONS: 1. No suspicious dissection evident. Prominence of the aorta at the level of the coronary vessel take off. Aorta otherwise tapers normally through its visualized course. Findings appear stable from 2017 comparison.
== END | disposition home or self-care (01) ==
LOC: RADCTMAIN 06:39
PROVIDERS: ATTEND Thoracic Surgery (Cardiothoracic Vascular Surgery)
DX: I71.2 Thoracic aortic aneurysm, without rupture (principal)
CPT/HCPCS: 71275; Q9967

== ENCOUNTER 2020-06-30 19:25 | Emergency (ER) | payer MEDICAID ==
[2020-06-30] MEDS ORDERED: IPRATROPIUM-ALBUTEROL 3 ML NEB INHALATION STA (19:34)
[2020-06-30 20:00] LABS: Basophils # (A) 0.1 k/uL (0-0.2); Basophils % (A) 0 %; Eosinophils # (A) 0.1 k/uL (0-0.7); Eosinophils % (A) 1 %; HGB 13.6 gm/dL (13.0-17.5); Lymphocytes # (A) 1.5 k/uL (1.0-4.8); Lymphocytes % (A) 7 %; MCH 29.4 pg (25.0-35.0); MCHC 33.1 g/dL (31.0-37.0); MCV 88.8 fL (80.0-100.0); Mean Platelet Volume 7.9; Monocytes # (A) 0.8 k/uL (0-1.0); Monocytes % (A) 4 %; Neutrophils # (A) 18.5 k/uL (1.3-7.7); Neutrophils % (A) 88 %; Platelet Count 157 k/uL (150-450); RBC 4.61 m/uL (4.30-5.90); RDW 13.9 % (11.5-15.5)
--- NOTE | 2020-06-30 20:05 | ED ---
Chest Pain HPI - General Chief Complaint: Chest Pain Stated Complaint: Chest Pain, SHOBHA Time Seen by Provider: 06/30/20 19:33 Source: patient Mode of arrival: wheelchair Limitations: no limitations - History of Present Illness Initial Comments: Patient is a 50-year-old male with past history of asthma, DVT, aortic valve replacement on Coumadin who presents to the emergency room for reported exertional shortness of breath and cough. Patient states that for the past several days he has "felt like crap". States that he's had tightness in his chest in a bronchospastic cough. Denies productive sputum. Does have a history of asthma. Has been using his inhaler however denies that has helped at all. No chest pain. No ripping or tearing sensation to his back. No nausea or vomiting. Denies fevers or chills. Patient takes Coumadin for his valve replacement and has not missed any doses. Denies any lower extremity swelling. No abdominal pain. No changes in his bowel or bladder habits. Denies hemoptysis. No previous history of coronary disease. Had an echo and stress test a few months ago which was normal. No other alleviating, precipitating or modifying factors - Related Data Home Medications Medication Instructions Recorded Confirmed Ascorbic Acid [Vitamin C] 500 mg PO DAILY 03/02/17 05/26/19 Atorvastatin [Lipitor] 40 mg PO HS 03/02/17 05/26/19 Omeprazole 40 mg PO BID 03/02/17 05/26/19 Testosterone [Androgel 1.62% Gel 1 applic TOPICAL MOWEFR 06/20/17 05/26/19 Pump] Cholecalciferol (Vitamin D3) 500 unit PO DAILY 05/09/19 05/26/19 [Vitamin D3] Warfarin [Coumadin] 2.5 mg PO DIRECTED 05/09/19 05/26/19 HYDROcodone/APAP 7.5-325MG [[place] 1 - 2 tab PO Q6HR PRN 05/26/19 05/26/19 7.5-325] Previous Rx's Medication Instructions Recorded Nitroglycerin Sl Tabs [Nitrostat] 0.4 mg SUBLINGUAL Q5M PRN tab 06/21/17 Docusate [Colace] 100 mg PO DAILY #30 capsule 05/17/19 Ferrous Sulfate [Feosol] 325 mg PO BID #30 tab 05/17/19 traMADol HCl [Ultram] 50 mg PO Q6H PRN #28 tab 05/17/19 Albuterol Inhaler (Mhu) [Ventolin 2 puff INHALATION RT-Q6H #1 05/29/19 Hfa Inhaler (Mhu)] Budesonide-Formot 160-4.5 Mcg 2 puff INHALATION RT-BID #1 puff 05/29/19 [Symbicort 160-4.5 Mcg Inhaler] Meloxicam [Mobic] 15 mg PO DAILY tab 05/29/19 Metoprolol Tartrate [Lopressor] 25 mg PO BID #60 tab 05/29/19 SILVER sulfADIAZINE CREAM 1 applic TOPICAL DAILY #1 applic 05/29/19 [Silvadene Cream] methylPREDNISolone Dose Pack 4 mg PO DIRECTED #21 package 05/29/19 [Medrol Dose Pack] Amoxicillin/Potassium Clav 1 tab PO Q12HR #20 tab 06/30/20 [Augmentin 875-125 Tablet] predniSONE [Deltasone] 20 mg PO BID #10 tab 06/30/20 Allergies Allergy/AdvReac Type Severity Reaction Status Date / Time phenobarbital AdvReac Hyperactivi Verified 06/30/20 19:31 ty testosterone AdvReac Joint Pain Verified 06/30/20 19:31 with Injection only Review of Systems ROS Statement: Those systems with pertinent positive or pertinent negative responses have been documented in the HPI. ROS Other: All systems not noted in ROS Statement are negative. EKG Findings - EKG Comments: EKG Findings:: EKG demonstrates a normal sinus rhythm with a ventricular rate of 92. CA interval 162. QRS 94. QTC 415. No acute ST segment elevations. Q wave in lead 3. 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 CPAP use. Hx DVT right leg 2 yrs ago. Hx pneumonia a long time ago. "Poor memory." History of Any Multi-Drug Resistant Organisms: None Reported Past Surgical History: Back Surgery, Bariatric Surgery, Bladder Surgery, Cardiac Valve Replacement, Orthopedic Surgery Additional Past Surgical History / Comment(s): L TKA, Left knee scope X 2, Right knee pinning, GASTRIC BAND SURGERY, aortic valve replacement with mechanical valve, repair of arterial aneurysm right radial arteryleft knee repl Past Anesthesia/Blood Transfusion Reactions: Postoperative Nausea & Vomiting (PONV) Past Psychological History: No Psychological Hx Reported Smoking Status: Never smoker Past Alcohol Use History: Rare Past Drug Use History: None Reported - Past Family History Mother Additional Family Medical History / Comment(s): B/L knee replacement. Father Family Medical History: Diabetes Mellitus Additional Family Medical History / Comment(s): Cardiac issues. General Exam Limitations: no limitations General appearance: alert, in no apparent distress Head exam: Present: atraumatic, normocephalic, normal inspection Eye exam: Present: normal appearance, PERRL, EOMI. Absent: scleral icterus, conjunctival injection, periorbital swelling ENT exam: Present: normal exam, mucous membranes moist Neck exam: Present: normal inspection. Absent: tenderness, meningismus, lymphadenopathy Respiratory exam: Present: normal lung sounds bilaterally. Absent: respiratory distress, wheezes, rales, rhonchi, stridor Cardiovascular Exam: Present: regular rate, normal rhythm, clicks (audible click over 2nd right intercostal space ). Absent: systolic murmur, diastolic murmur, rubs, gallop GI/Abdominal exam: Present: soft, normal bowel sounds. Absent: distended, tenderness, guarding, rebound, rigid Extremities exam: Present: normal inspection, full ROM, normal capillary refill. Absent: tenderness, pedal edema, joint swelling, calf tenderness Back exam: Present: normal inspection Neurological exam: Present: alert, oriented X3, CN II-XII intact Psychiatric exam: Present: normal affect, normal mood Skin exam: Present: warm, dry, intact, normal color. Absent: rash Course Vital Signs 06/30/20 06/30/20 06/30/20 19:29 19:57 20:01 Temperature 98.5 F Pulse Rate 95 92 Respiratory 18 22 26 H Rate Blood Pressure 111/72 102/59 O2 Sat by Pulse 99 98 Oximetry 06/30/20 06/30/20 06/30/20 20:16 20:26 21:12 Temperature 98.3 F Pulse Rate 82 84 85 Respiratory 24 Rate Blood Pressure 109/60 O2 Sat by Pulse 98 Oximetry Chest Pain MDM - MDM Upon arrival the patient's placed into room 4. Her history of physical exam is performed. Patient is saturating 99% on room air. No signs of respiratory distress. Lung sounds are clear. I did offer the patient DuoNeb breathing treatment which she did agree to. Treatment is performed the patient does have marked improvement in his symptoms. I did recommend laboratory studies, EKG and a chest x-ray. Lab studies are unremarkable for white count of 21,000. No recent steroid use. INR is subtherapeutic at 2.4 for his mechanical valve. BNP is 65. Troponin is negative. Chest x-ray is clear for any infiltrate. I did offer CT the patient's chest as he does have a history of DVT with exertional shortness of breath for the patient refused. He is therapeutic for DVT however subtherapeutic for his valve for which the patient understood. I did recommend hospital admission orders trend his troponins and get an echo. The patient refused this as well. I did discuss the risks of leaving for which the patient understood. Risks including permanent disability and even . At this time the we will treat the patient as a bronchospasm with possible tracheal bronchitis. Patient will be placed on a course of steroids. Given his first dose in the emergency department. I also provided the patient with a prescription for Augmentin. He is to follow-up with his primary care doctor in regards to symptoms. I do recommend an echo in the near future. He needs to be reassessed for his subtherapeutic INR level. If he has any new or worsening symptoms her grades to hospital admission he should return to the emergency room. Patient was discharged in stable condition Disposition Clinical Impression: Cough, Bronchospasm, Leukocytosis, Status post mechanical aortic valve replacement, Subtherapeutic anticoagulation Disposition: HOME SELF-CARE Condition: Stable Instructions (If sedation given, give patient instructions): Bronchospasm (ED) Additional Instructions: Please follow-up with your primary care doctor. Take the antibiotics and steroids as directed. Return to the emergency room for any new or worsening symptoms. Prescriptions: Amoxicillin/Potassium Clav [Augmentin 875-125 Tablet] 1 tab PO Q12HR #20 tab predniSONE [Deltasone] 20 mg PO BID #10 tab Is patient prescribed a controlled substance at d/c from ED?: No Referrals: Bar Bender DO [Primary Care Provider] - 1-2 days Time of Disposition: 20:56
[2020-06-30 20:08] LABS: INR 2.4 (<1.2); Partial Thromboplastin Time 39.7 sec (22.0-30.0); Prothrombin Time 23.8 sec (9.0-12.0)
[2020-06-30 20:15] LABS: ALT 21 U/L (4-49); AST 22 U/L (17-59); African American GFR (CKD) >90 (>60 ml/min/1.73 sqM); Albumin 4.1 g/dL (3.5-5.0); Alkaline Phosphatase 74 U/L (38-126); Anion Gap 5 mmol/L; Blood Urea Nitrogen 20 mg/dL (9-20); Calcium 8.9 mg/dL (8.4-10.2); Carbon Dioxide 30 mmol/L (22-30); Chloride 103 mmol/L (98-107); Glucose 101 mg/dL (74-99); Magnesium 1.9 mg/dL (1.6-2.3); Non-African American GFR(CKD) >90 (>60 ml/min/1.73 sqM); Potassium 4.1 mmol/L (3.5-5.1); Sodium 138 mmol/L (137-145); Total Bilirubin 1.7 mg/dL (0.2-1.3); Total Protein 6.5 g/dL (6.3-8.2)
--- NOTE | 2020-06-30 20:27 | XR ---
EXAMINATION TYPE: XR chest 2V DATE OF EXAM: 06/30/2020 COMPARISON: 09/28/2019 HISTORY: Chest pain TECHNIQUE: 2 views. Heart is normal. Lungs are clear of infiltrate. There are sternal wires. Costophrenic angles are jessee ar. IMPRESSION: No active cardiopulmonary disease. Previous cardiac surgery. No change.
[2020-06-30] MEDS ORDERED: AMOXIC-POT CLAV 875-125MG 1 EACH TAB PO STA (20:52)
[2020-06-30] MEDS ORDERED: predniSONE 20 MG TAB PO STA (20:52)
[2020-06-30 21:14] VITALS: BP 109/60; PULSE 85; RESP 24; TEMP 98.3
== END 2020-06-30 21:16 | disposition home or self-care (01) ==
LOC: EC 19:25
DX: J98.01 Acute bronchospasm (principal); D72.829 Elevated white blood cell count, unspecified; E78.5 Hyperlipidemia, unspecified; K21.9 Gastro-esophageal reflux disease without esophagitis; G47.30 Sleep apnea, unspecified; Z79.899 Other long term (current) drug therapy; Z79.890 Hormone replacement therapy; Z79.01 Long term (current) use of anticoagulants; Z88.8 Allergy status to other drugs, medicaments and biological substances; Z91.09 Other allergy status, other than to drugs and biological substances; Z86.718 Personal history of other venous thrombosis and embolism; Z96.652 Presence of left artificial knee joint; Z99.89 Dependence on other enabling machines and devices; Z95.2 Presence of prosthetic heart valve
CPT/HCPCS: 36415; 94640; 93005; 83880; 80053; 83605; 83735; 84484; 85025; 85610; 85730; 71046; 99285; J7512

== ENCOUNTER → 2023-04-13 | Outpatient (CLI) | payer MEDICAID, MEDICARE ==
[2023-04-13 15:52] VITALS: BP 121/70; PULSE 82; RESP 16; TEMP 98.9; BMI 25.9
--- NOTE | 2023-04-13 17:05 | P.BASOAP ---
Subjective Progress Note Date: 04/13/23 Principal diagnosis: Morbid obesity Patient well-known to our service. He has unintentionally lost 42 pounds since October. Patient being evaluated for possible malignancy. As a CAT scan of the chest abdomen and pelvis next Wednesday. Has been having increased back pain radiating to the left leg and is seeing orthopedics later this week. Patient does not feel any change in restriction. No nausea or vomiting. Father with history of colon cancer. Last colonoscopy 5 years ago. Denies rectal bleeding or melena. No change in bowel habits. Objective - Vital Signs Vital signs: Vital Signs Temp 98.9 F 04/13/23 15:49 Pulse 82 04/13/23 15:49 Resp 16 04/13/23 15:49 BP 121/70 04/13/23 15:49 Pulse Ox FiO2 Intake & Output 04/12/23 04/13/23 04/13/23 18:59 06:59 18:59 Weight 82.1 kg - Exam Abdomen: Soft, nontender, nondistended Assessment/Plan (1) Morbid obesity Narrative/Plan: 52-year-old male with progressive weight loss. Etiology unclear. We'll loosen the band at this time. We'll schedule for EGD and colonoscopy. Band was accessed. 5 mL removed. Plan: Date: 04/13/23 Initial Weight: 127.459 kg Initial BMI: 40.3 Current Weight: 82.1 kg Current BMI: 25.9 Type of Surgery: Total Volume in Band: 7.3 Previous Volume: Volume Removed: Volume Added: Band Size:
== END ==
LOC: BARWHC3 14:55
PROVIDERS: ATTEND Surgery
DX: E66.01 Morbid (severe) obesity due to excess calories (principal); Z68.25 Body mass index [BMI] 25.0-25.9, adult; Z88.8 Allergy status to other drugs, medicaments and biological substances
CPT/HCPCS: 99211

== ENCOUNTER → 2023-04-19 | Outpatient (CLI) | payer MEDICARE, MEDICAID ==
--- NOTE | 2023-04-19 13:35 | CT ---
EXAMINATION TYPE: CT ChestAbdPelvis w con DATE OF EXAM: 04/19/2023 COMPARISON: 04/19/2023 CT chest. HISTORY: Abnormal weight loss. CT DLP: 967.7 mGycm CONTRAST: CT scan of the chest, abdomen and pelvis is performed with Oral Contrast and with IV Contrast, patien t injected with 100ml mL of Isovue 300. CT Chest: LUNGS: The lungs are clear and free of infiltrate or atelectasis. No pulmonary nodule or mass is det ected. No pleural effusion or CT evidence of interstitial lung disease. MEDIASTINUM: Thoracic aorta is of normal caliber. The heart is not enlarged. No evidence for media stinal mass or adenopathy. HILAR STRUCTURES: No evidence for mass. No hilar adenopathy is appreciated. OTHER: No significant abnormality. CONTRAST CT ABDOMEN AND PELVIS FINDINGS: LIVER/GB: Small layering gallstones noted. No space occupying hepatic lesion. Biliary tree is of norm al caliber. PANCREAS: No inflammation. No distinct mass. SPLEEN: No splenic enlargement. No lesion seen. ADRENALS: No nodule. No thickening. KIDNEYS/BLADDER: No hydronephrosis. No nephrolithiasis. No distinct renal mass. BOWEL: Gastric banding device. Normal appendix. Normal bowel caliber. No inflammation. GENITAL ORGANS: No gross abnormality. LYMPH NODES: No greater than 1cm abdominal or pelvic lymph nodes are appreciated. AORTA: No significant abnormality. OSSEOUS STRUCTURES: Postoperative changes of lumbar laminectomy with fusion. OTHER: No significant additional abnormality is seen. IMPRESSION: 1. No significant abnormality seen to account for the patient's symptoms.
== END | disposition home or self-care (01) ==
LOC: RADCTMAIN 10:36
PROVIDERS: ATTEND Family Medicine
DX: S09.90XS Unspecified injury of head, sequela (principal); R63.4 Abnormal weight loss; R10.84 Generalized abdominal pain
CPT/HCPCS: 71250; 71260; 74177; Q9967

== ENCOUNTER 2023-04-27 07:04 | Day surgery (SDC) | payer MEDICAID, MEDICARE ==
[~2023-04-27 07:04] MED LIST changes: -ACETAMINOPHEN TAB 500 MG TAB PO ONE; -DEXAMETHASONE SOD PHOSPHATE 10 MG/ML 1 ML VIAL IV ONE; +LACTATED RINGERS 1,000 ML IV SCH; +LIDOCAINE 1% (10MG/ML) FOR IV START INTRADERMA PRN; -MELOXICAM 7.5 MG TAB PO ONE; -MIDAZOLAM 2 MG/2 ML VIAL IV PRN; -ONDANSETRON 4 MG/2 ML VIAL IVP ONE; +ONDANSETRON 4 MG/2 ML VIAL IVP PRN; -SCOPOLAMINE 1.5MG/72HR PATCH TRANSDERM ONE; -TRANEXAMIC ACID 1,000 MG in SODIUM CHLORIDE 0.9% 100 ML IVPB ONE; -ceFAZolin 3 GM in SODIUM CHLORIDE 0.9% 100 ML IVPB ONE
[2023-04-27 07:32] VITALS: TEMP 97.8
[2023-04-27] MEDS ORDERED: LIDOCAINE 2% INJ 20 MG/ML (2 ML VIAL) ONE (07:48)
[2023-04-27] MEDS ORDERED: PROPOFOL 10 MG/ML 20 ML VIAL IV ONE (07:48)
--- NOTE | 2023-04-27 07:53 | P.GSHP ---
History of Present Illness H&P Date: 04/27/23 Chief Complaint: GERD, screening 52-year-old male known to our service. Referred to bariatric note from a few weeks ago. There is a for upper and lower endoscopy. Patient has had unexplained weight loss. Mild reflux at times. No vomiting. No change in bowel habits. Past Medical History Past Medical History: Asthma, Deep Vein Thrombosis (DVT), GERD/Reflux, Hyperlipidemia, Memory Impairment, Osteoarthritis (OA), Pneumonia, Vascular Disorder Additional Past Medical History / Comment(s): Unexplained wt loss and anemia. Bicuspid aortic valve Aortopathy resulting in ascending aortic aneurysm and ar ch aneurysm. SHADI corrected with weight loss, Hx DVT right leg 2 yrs ago. Hx pneumonia a long time ago. "Poor memory." History of Any Multi-Drug Resistant Organisms: None Reported Past Surgical History: Back Surgery, Bariatric Surgery, Bladder Surgery, Cardiac Valve Replacement, Orthopedic Surgery Additional Past Surgical History / Comment(s): L TKA x2, Left knee scope X 2, Right knee pinning, GASTRIC BAND SURGERY, aortic valve replacement with mechanical valve, repair of arterial aneurysm right radial artery, bladder stone removed Past Anesthesia/Blood Transfusion Reactions: Postoperative Nausea & Vomiting (PONV) Additional Past Anesthesia/Blood Transfusion Reaction / Comment(s): Pt has received blood in past with surgeries without reaction. Smoking Status: Never smoker - Past Family History Mother Additional Family Medical History / Comment(s): B/L knee replacement. Father Family Medical History: Diabetes Mellitus Additional Family Medical History / Comment(s): Cardiac issues. Medications and Allergies Home Medications Medication Instructions Recorded Confirmed Type Ascorbic Acid [Vitamin C] 500 mg PO QAM 03/02/17 04/27/23 History Atorvastatin [Lipitor] 40 mg PO HS 03/02/17 04/27/23 History Omeprazole 40 mg PO BID 03/02/17 04/27/23 History Testosterone [Androgel 1.62% Gel 1 applic TOPICAL MOWEFR 06/20/17 04/27/23 History Pump] Cholecalciferol (Vitamin D3) 500 unit PO QAM 05/09/19 04/27/23 History [Vitamin D3 (500 Iu/5 ML)] Warfarin [Coumadin] 2.5 mg PO DIRECTED 05/09/19 04/22/23 History HYDROcodone/APAP 7.5-325MG [[place] 1 - 2 tab PO Q6HR PRN 05/26/19 04/27/23 History 7.5-325] Albuterol Inhaler [Ventolin Hfa 1 - 2 puff INHALATION Q6H PRN 04/22/23 04/27/23 History Inhaler] Meloxicam [Mobic] 15 mg PO DAILY PRN 04/22/23 04/22/23 History Metoprolol Tartrate [Lopressor] 12.5 mg PO BID 04/22/23 04/27/23 History Allergies Allergy/AdvReac Type Severity Reaction Status Date / Time phenobarbital AdvReac Hyperactivi Verified 04/27/23 07:30 ty testosterone AdvReac Joint Pain Verified 04/27/23 07:30 with Injection only Surgical - Exam Vital Signs Temp Pulse Resp BP Pulse Ox 97.8 F 75 16 122/68 99 04/27/23 07:31 04/27/23 07:31 04/27/23 07:31 04/27/23 07:31 04/27/23 07:31 Physical exam: General: Well-developed, well-nourished HEENT: Normocephalic, sclerae nonicteric Abdomen: Nontender, nondistended Extremities: No edema Neuro: Alert and oriented Assessment and Plan (1) GERD (gastroesophageal reflux disease) Narrative/Plan: Will proceed with upper and lower endoscopy Current Visit: Yes Status: Acute Code(s): K21.9 - GASTRO-ESOPHAGEAL REFLUX DISEASE WITHOUT ESOPHAGITIS SNOMED Code(s): 624062812
--- NOTE | 2023-04-27 08:12 | P.PCN ---
Date of Procedure: 04/27/23 Procedure(s) Performed: PREOPERATIVE DIAGNOSIS: GERD, weight loss, anemia, screening POSTOPERATIVE DIAGNOSIS: Gastritis with small erosions, gastric polyps, transverse colon polyp, diverticulosis, mild proctitis PROCEDURE: 1. EGD with biopsy 2. Colonoscopy with snare polypectomy and biopsy [place]: [facility] [place]: Jimmy Jacques M.D. SPECIMENS: Antrum, gastric polyp, transverse colon polyp, proctitis ENDOSCOPIC PROCEDURE: The patient was on the endoscopy table in the left decubitus position. The Olympus gastroscope was inserted into the oropharynx and passed under direct visualization to the region of the third portion of the duodenum. From that point the scope was slowly withdrawn inspecting all surfaces carefully. There were no neoplastic inflammatory or polypoid lesions throughout the duodenum. The pylorus was widely patent. The stomach was carefully inspected. There was are gastritis present. A biopsy of the antrum took place to rule out H. pylori. The patient had numerous small 5 mm polyps in the stomach. One of these was removed using the cold biopsy forceps. Retroflexion revealed a normal band plication. There was no evidence of erosion or prolapse. The esophagus was then carefully examined. There were no neoplastic inflammatory or polypoid lesions throughout the visualized esophagus. The patient was kept on the endoscopy table in the left decubitus position. The Olympus colonoscope was inserted into the anus and passed under direct visualization to the base of the cecum. The appendiceal orifice was visualized. From that point the scope was slowly withdrawn inspecting all surfaces carefully. There were no neoplastic inflammatory or polypoid lesions throughout the cecum or ascending colon. In the transverse colon a small polyp was seen and removed using the snare with cautery technique. The remainder of the transverse descending sigmoid and rectum appeared normal with the exception of mild proctitis involving the distal 4 cm of the rectum. Biopsies were taken. The patient did have mild diverticulosis. Digital rectal examination was nor mal. The patient was taken to the recovery room in stable condition per anesthesia guidelines. RECOMMENDATIONS: Await biopsy results. Continue workup of the patient's unexplained weight loss.
[2023-04-27 08:34] VITALS: BP 106/67; PULSE 63; RESP 14
== END 2023-04-27 08:55 | disposition home or self-care (01) ==
LOC: ORWHC2ENDO 07:04
PROVIDERS: ATTEND Surgery
DX: K29.50 Unspecified chronic gastritis without bleeding (principal); K31.7 Polyp of stomach and duodenum; D12.3 Benign neoplasm of transverse colon; K62.1 Rectal polyp; K57.30 Diverticulosis of large intestine without perforation or abscess without bleeding; K62.89 Other specified diseases of anus and rectum; K21.9 Gastro-esophageal reflux disease without esophagitis; J45.909 Unspecified asthma, uncomplicated; E78.5 Hyperlipidemia, unspecified; I10 Essential (primary) hypertension; Z86.718 Personal history of other venous thrombosis and embolism; R41.3 Other amnesia; M19.90 Unspecified osteoarthritis, unspecified site; Z87.01 Personal history of pneumonia (recurrent); Q23.1 Congenital insufficiency of aortic valve; Z98.84 Bariatric surgery status; Z95.2 Presence of prosthetic heart valve; Z98.890 Other specified postprocedural states; Z96.652 Presence of left artificial knee joint; Z83.3 Family history of diabetes mellitus; Z82.49 Family history of ischemic heart disease and other diseases of the circulatory system; Z79.01 Long term (current) use of anticoagulants; Z79.899 Other long term (current) drug therapy; Z88.8 Allergy status to other drugs, medicaments and biological substances
CPT/HCPCS: 88305; 45380; 45385; 43239; J2704; J2001

== ENCOUNTER → 2023-05-14 | Outpatient (CLI) | payer MEDICARE, MEDICAID ==
--- NOTE | 2023-05-14 13:03 | US ---
LOWER EXTREMITY VENOUS INSUFFICIENCY CLINICAL INDICATION: Male, 52 years old with history of R60.0 EDEMA; Edema x a couple months. Patient is on coumadin. Hx of DVT in leg. Per order, R/O venous insufficiency as well. SIDE PERFORMED: Bilateral 1) Color flow is present and patency is documented in the following vessels. No DVT or SVT is noted . Common Femoral Vein Deep Femoral Vein Femoral Vein Popliteal Vein Proximal Calf Veins Greater Saph Vein Upper Small Saph Vein 2) There is venous reflux noted at the following venous levels: No evidence of reflux in veins imag ed at this time. IMPRESSION: No evidence of DVT or venous reflux.
== END | disposition home or self-care (01) ==
LOC: RADUSWWP 12:12
PROVIDERS: ATTEND Family Medicine
DX: R60.0 Localized edema (principal); R20.2 Paresthesia of skin; Z79.01 Long term (current) use of anticoagulants; Z86.718 Personal history of other venous thrombosis and embolism
CPT/HCPCS: 93970

== ENCOUNTER → 2023-06-01 | Outpatient (CLI) | payer MEDICARE, MEDICAID ==
--- NOTE | 2023-06-02 07:11 | CA ---
Transthoracic Echo Report Name: Riley Meadows Age: 53 Gender: M : 1970 Exam Date: 06/01/2023 09:41 Exam Location: [facility] Ht (in): 71 Wt (lb): 200 Ordering Physician: Bar Bender DO Attending/Referring Phys: [employer] Laborer Anita Magdaleno RDCS Procedure CPT: Indications: I47.1 Supraventricular tachycardia Cardiac Hx: Technical Quality: Fair Contrast 1: Total Dose (mL): Contrast 2: Total Dose (mL): MEASUREMENTS (Male / Female) Normal Values 2D ECHO LV Diastolic Diameter PLAX 4.2 cm 4.2 - 5.9 / 3.9 - 5.3 cm LV Systolic Diameter PLAX 2.5 cm IVS Diastolic Thickness 1.5 cm 0.6 - 1.0 / 0.6 - 0.9 cm LVPW Diastolic Thickness 1.3 cm 0.6 - 1.0 / 0.6 - 0.9 cm LV Relative Wall Thickness 0.7 RV Internal Dim ED PLAX 4.3 cm LVOT Diameter 2.1 cm LA Volume 110.2 cm??? 18 - 58 / 22 - 52 cm??? M-MODE Aortic Root Diameter MM 2.8 cm DOPPLER AV Peak Velocity 311.1 cm/s AV Peak Gradient 38.7 mmHg AV Mean Velocity 193.4 cm/s AV Mean Gradient 17.8 mmHg AV Velocity Time Integral 65.5 cm AI Peak Velocity 465.2 cm/s AI Peak Gradient 86.6 mmHg AI Pressure Half Time 700.1 ms LVOT Peak Velocity 116.3 cm/s LVOT Peak Gradient 5.4 mmHg LVOT Velocity Time Integral 27.3 cm LVOT Stroke Volume 95.3 cm??? LVOT Stroke Volume Index 45.2 ml/m??? LVOT Cardiac Index 2839.7 cm???/min???m??? AV Area Cont Eq vti 1.5 cm??? AV Area Cont Eq pk 1.3 cm??? MV Peak Velocity 152.5 cm/s MV Peak Gradient 9.3 mmHg MV Mean Velocity 69.7 cm/s MV Mean Gradient 2.6 mmHg MV Velocity Time Integral 50.1 cm MV Area PHT 3.2 cm??? Mitral E Point Velocity 127.8 cm/s Mitral A Point Velocity 83.1 cm/s Mitral E to A Ratio 1.5 MV Deceleration Time 237.2 ms MV E' Velocity 6.7 cm/s Mitral E to MV E' Ratio 19.0 TR Peak Velocity 277.8 cm/s TR Peak Gradient 30.9 mmHg Right Ventricular Systolic Press 44.5 mmHg FINDINGS Left Ventricle Moderately increased left ventricular wall thickness. Left ventricular cavity size normal. Abnormal (paradoxical) septal motion consistent with postoperative state. Left ventricular ejection fraction is estimated at 55-60 %. Right Ventricle Moderate right ventricular dilatation. Mild pulmonary hypertension. Right ventricular systolic pressure estimated at 45 mm hg. Right Atrium Normal right atrial size. Left Atrium Severely increased left atrial volume. Mildly increased left atrial area. Mitral Valve Mitral valve thickened. Moderate mitral annular calcification. [id number] mitral regurgitation. Aortic Valve Mechanical prosthetic aortic valve Otherwise prosthetic aortic valve appears to be functioning normally. Mild regurgitation of the aortic valve. Tricuspid Valve Structurally normal tricuspid valve. Moderate tricuspid regurgitation. Pulmonic Valve Trace pulmonic regurgitation. Pericardium No pericardial effusion. Aorta Normal size aortic root and proximal ascending aorta. CONCLUSIONS Normal LV systolic function. Mild concentric LVH. Poorly visualized aortic valve. Prosthetic aortic valve with normal function. The mean gradient across the valve is 17 mmHg [id number] mitral regurgitation Moderate tricuspid regurgitation Previewed by: Dr. Giuliano Reilly MD (Electronically Signed) Final Date: 02 June 2023 07:11
== END | disposition home or self-care (01) ==
LOC: RADECHMAIN 09:10
PROVIDERS: ATTEND Family Medicine
DX: I08.1 Rheumatic disorders of both mitral and tricuspid valves (principal); I47.1 Supraventricular tachycardia
CPT/HCPCS: 93306

== ENCOUNTER 2023-07-08 17:03 | Observation (INO) | payer MEDICAID, MEDICARE ==
--- NOTE | 2023-07-08 18:12 | XR ---
PROCEDURE: XR tibia fibula LT - 4V DATE AND TIME: 07/08/2023 5:53 PM CLINICAL INDICATION: infection. ED patient. TECHNIQUE: Department protocol. 4 total views. COMPARISON: 10/31/2019 FINDINGS: 4 views of the left tibia-fibula were obtained from the knee to the ankle. Diffuse nonspecific soft tissue swelling is seen about the knee and leg. There is no associated soft tissue emphysema or radiopaque foreign body. Smaill joint effusion noted. TKR orthopedic hardware: * Femoral prosthesis is not fully seen on the radiographs, but the AP view shows nonspecific mild sm oothly-marginated osteopenia adjacent to the nonarticular medial component of the prosthesis. * The tibial prosthesis component is fully seen and is negative for periprosthesis lucency. The left tibia and fibula are negative for fracture or malalignment. Also, no focal osteopenic or ost eosclerotic findings. IMPRESSION: Soft tissue swelling. Periprosthesis mild lucency superomedial to the medial component of the femoral prosthesis. Joint effusion.
[2023-07-08] MEDS ORDERED: MORPHINE SULFATE 4 MG/ML SYRINGE IVP STA ×2 (18:34→21:07)
[2023-07-08] MEDS ORDERED: AMPICILLIN-SULBACTAM 1.5 GM in SODIUM CHLORIDE 0.9% 50 ML IVPB STA (18:34)
[2023-07-08] MEDS ORDERED: LIDOCAINE 2%-EPI 1:100,000 20 ML VIAL SQ STA (18:38)
[2023-07-08 19:22] LABS: Anisocytosis Slight; Basophils % (A) 1 %; Eosinophils # (A) 0.2 k/uL (0-0.7); Eosinophils % (A) 3 %; HCT 35.7 % (39.0-53.0); HGB 11.9 gm/dL (13.0-17.5); Lymphocytes # (A) 1.7 k/uL (1.0-4.8); Lymphocytes % (A) 26 %; MCH 27.7 pg (25.0-35.0); MCHC 33.3 g/dL (31.0-37.0); Mean Platelet Volume 8.1; Monocytes # (A) 0.5 k/uL (0-1.0); Monocytes % (A) 7 %; Neutrophils # (A) 4.2 k/uL (1.3-7.7); Neutrophils % (A) 63 %; Platelet Count 299 k/uL (150-450); WBC 6.6 k/uL (3.8-10.6)
[2023-07-08 19:49] LABS: ALT 10 U/L (4-49); AST 17 U/L (17-59); African American GFR (CKD) >90 (>60 ml/min/1.73 sqM); Albumin 3.9 g/dL (3.5-5.0); Alkaline Phosphatase 149 U/L (38-126); Anion Gap 11 mmol/L; Blood Urea Nitrogen 22 mg/dL (9-20); C Reactive Protein 4.4 mg/dL (<1.0); Calcium 8.8 mg/dL (8.4-10.2); Carbon Dioxide 27 mmol/L (22-30); Chloride 104 mmol/L (98-107); Glucose 98 mg/dL (74-99); Non-African American GFR(CKD) >90 (>60 ml/min/1.73 sqM); Potassium 4.7 mmol/L (3.5-5.1); Sodium 142 mmol/L (137-145); Total Bilirubin 0.6 mg/dL (0.2-1.3); Total Protein 8.2 g/dL (6.3-8.2)
--- NOTE | 2023-07-08 21:58 | ED ---
General Adult HPI - General Chief complaint: Skin/Abscess/Foreign Body Stated complaint: Lft leg abcesss Time Seen by Provider: 07/08/23 17:37 Source: patient Mode of arrival: ambulatory Limitations: no limitations - History of Present Illness Initial comments: 53-year-old male presenting to the ED with a chief complaint of leg problem. Patient states for the past week has developed swelling and pain on his left lower leg. For this, saw his PCP who advised him to present to the ED for further evaluation. Advised him to present to the ED to receive IV antibiotics due to him having a mechanical heart valve. Denies fever. No chest pain shortness breath. No other complaints. - Related Data Home Medications Medication Instructions Recorded Confirmed Ascorbic Acid [Vitamin C] 500 mg PO QAM 03/02/17 04/27/23 Atorvastatin [Lipitor] 40 mg PO HS 03/02/17 04/27/23 Omeprazole 40 mg PO BID 03/02/17 04/27/23 Testosterone [Androgel 1.62% Gel 1 applic TOPICAL MOWEFR 06/20/17 04/27/23 Pump] Cholecalciferol (Vitamin D3) 500 unit PO QAM 05/09/19 04/27/23 [Vitamin D3 (500 Iu/5 ML)] Warfarin [Coumadin] 2.5 mg PO DIRECTED 05/09/19 04/22/23 HYDROcodone/APAP 7.5-325MG [[place] 1 - 2 tab PO Q6HR PRN 05/26/19 04/27/23 7.5-325] Albuterol Inhaler [Ventolin Hfa 1 - 2 puff INHALATION Q6H PRN 04/22/23 04/27/23 Inhaler] Meloxicam [Mobic] 15 mg PO DAILY PRN 04/22/23 04/22/23 Metoprolol Tartrate [Lopressor] 12.5 mg PO BID 04/22/23 04/27/23 Allergies Allergy/AdvReac Type Severity Reaction Status Date / Time phenobarbital AdvReac Hyperactivi Verified 07/08/23 17:13 ty testosterone AdvReac Joint Pain Verified 07/08/23 17:13 with Injection only Review of Systems ROS Statement: Those systems with pertinent positive or pertinent negative responses have been documented in the HPI. ROS Other: All systems not noted in ROS Statement are negative. 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 CPAP use. Hx DVT right leg 2 yrs ago. Hx pneumonia a long time ago. "Poor memory." History of Any Multi-Drug Resistant Organisms: None Reported Past Surgical History: Back Surgery, Bariatric Surgery, Bladder Surgery, Cardiac Valve Replacement, Orthopedic Surgery Additional Past Surgical History / Comment(s): L TKA, Left knee scope X 2, Right knee pinning, GASTRIC BAND SURGERY, aortic valve replacement with mechanical valve, repair of arterial aneurysm right radial arteryleft knee repl, bone marrow biopsy 07/07/23 Past Anesthesia/Blood Transfusion Reactions: Postoperative Nausea & Vomiting (PONV) Past Psychological History: No Psychological Hx Reported Smoking Status: Never smoker Past Alcohol Use History: None Reported Past Drug Use History: None Reported - Past Family History Mother Additional Family Medical History / Comment(s): B/L knee replacement. Father Family Medical History: Diabetes Mellitus Additional Family Medical History / Comment(s): Cardiac issues. General Exam Limitations: no limitations General appearance: alert, in no apparent distress Neck exam: Present: normal inspection Respiratory exam: Present: normal lung sounds bilaterally Cardiovascular Exam: Present: regular rate, normal rhythm GI/Abdominal exam: Present: soft Extremities exam: Present: other (Approximately 6 x 4 area of erythema, warmth, fluctuance and tenderness to palpation on the left anterior lower leg.) Neurological exam: Present: alert, oriented X3 Skin exam: Present: warm, dry Course Vital Signs 07/08/23 07/08/23 17:13 19:42 Temperature 98.1 F 98.6 F Pulse Rate 85 76 Respiratory 18 18 Rate Blood Pressure 125/83 120/82 O2 Sat by Pulse 99 100 Oximetry Procedures - Alexander Protocol (Time Out) Procedure Performed:: Incision and drainage Performing Provider: Jonathan Zhang Nurse: Chelsey Tavarez Patient Identification (2 identifiers required): Verbal, Arm Band, Name, Birthdate Patient/Legal Corrosion Control Engineer has Confirmed: Identity, Site, Procedure, Consent Site: left casarez Site Marked: No Site Verified With Patient/Guardian: Yes Medical Decision Making - Medical Decision Making Was pt. sent in by a medical professional or institution (PRINCE Schilling, CASTER HELPER, urgent care, hospital, or group home...) When possible be specific @ -No Did you speak to anyone other than the patient for history (EMS, parent, family, police, friend...)? What history was obtained from this source @ -No Did you review nursing and triage notes (agree or disagree)? Why? @ -I reviewed and agree with nursing and triage notes Were old charts reviewed (outside hosp., previous admission, EMS record, old EK G, old radiological studies, urgent care reports/EKG's, group home records)? Report findings @ -No old charts were reviewed Differential Diagnosis (chest pain, altered mental status, abdominal pain women, abdominal pain men, vaginal bleeding, weakness, fever, dyspnea, syncope, headache, dizziness, GI bleed, back pain, seizure, CVA, palpatations, mental health, musculoskeletal)? @ -MRSA, cellulitis, abscess. This is not meant to be an all-inclusive list. EKG interpreted by me (3pts min.). @ -None X-rays interpreted by me (1pt min.). @ -X-ray interpreted by me shows no acute findings. CT interpreted by me (1pt min.). @ -None done U/S interpreted by me (1pt. min.). @ -None done What testing was considered but not performed or refused? (CT, X-rays, U/S, labs)? Why? @ -None What meds were considered but not given or refused? Why? @ -None Did you discuss the management of the patient with other professionals (professionals i.e. PRINCE Schilling, CASTER HELPER, lab, RT, psych nurse, social contact worker, [employer], teacher, disability hearing officer, gearcase assembler)? Give summary @ -No Was smoking cessation discussed for >3mins.? @ -No Was critical care preformed (if so, how long)? @ -No Were there social determinants of health that impacted care today? How? (Homelessness, low income, unemployed, alcoholism, drug addiction, transportation, low edu. Level, literacy, decrease access to med. care, senior care, rehab)? @ -No Was there de-escalation of care discussed even if they declined (Discuss DNR or withdrawal of care, Hospice)? DNR status @ -No What co-morbidities impacted this encounter? (DM, HTN, Smoking, COPD, CAD, Cancer, CVA, ARF, Chemo, Hep., AIDS, mental health diagnosis, sleep apnea, morbid obesity)? @ -None Was patient admitted / discharged? Hospital course, mention meds given and route, prescriptions, significant lab abnormalities, going to OR and other pertinent info. @ -Admission 53-year-old male with past medical history significant for mechanical heart valve presents to the ED with a chief complaint leg problem. Exam did reveal findings consistent with abscess. This was drained at bedside. For further details please see procedure note. Patient provided a dose of IV Unasyn here. She will be admitted to observation for IV antibiotics. Discussed plan of care with patient and family who are in agreement. Undiagnosed new problem with uncertain prognosis? @ -No Drug Therapy requiring intensive monitoring for toxicity (Heparin, Nitro, Insulin, Cardizem)? @ -No Were any procedures done? @ -Yes, please see procedure note further details Diagnosis/symptom? @ -Abscess to left lower extremity, history of mechanical heart valve Acute, or Chronic, or Acute on Chronic? @ -Acute Uncomplicated (without systemic symptoms) or Complicated (systemic symptoms)? @ -Uncomplicated Side effects of treatment? @ -No Exacerbation, Progression, or Severe Exacerbation? @ -No Poses a threat to life or bodily function? How? (Chest pain, USA, MD, pneumonia, PE, COPD, DKA, ARF, appy, cholecystitis, CVA, Diverticulitis, Homicidal, Suic idal, threat to staff... and all critical care pts) @ -No - Lab Data Result diagrams: 07/08/23 18:32 07/08/23 18:32 Lab Results 07/08/23 07/08/23 07/08/23 Range/Units 18:32 18:32 18:34 WBC 6.6 (3.8-10.6) k/uL RBC 4.30 (4.30-5.90) m/uL Hgb 11.9 L (13.0-17.5) gm/dL Hct 35.7 L (39.0-53.0) % MCV 83.0 (80.0-100.0) fL MCH 27.7 (25.0-35.0) pg MCHC 33.3 (31.0-37.0) g/dL RDW 17.0 H (11.5-15.5) % Plt Count 299 (150-450) k/uL MPV 8.1 Neutrophils % 63 % Lymphocytes % 26 % Monocytes % 7 % Eosinophils % 3 % Basophils % 1 % Neutrophils # 4.2 (1.3-7.7) k/uL Lymphocytes # 1.7 (1.0-4.8) k/uL Monocytes # 0.5 (0-1.0) k/uL Eosinophils # 0.2 (0-0.7) k/uL Basophils # 0.0 (0-0.2) k/uL Anisocytosis Slight Sodium 142 (137-145) mmol/L Potassium 4.7 (3.5-5.1) mmol/L Chloride 104 (98-107) mmol/L Carbon Dioxide 27 (22-30) mmol/L Anion Gap 11 mmol/L BUN 22 H (9-20) mg/dL Creatinine 0.77 (0.66-1.25) mg/dL Est GFR (CKD-EPI)AfAm >90 (>60 ml/min/1.73 sqM) Est GFR (CKD-EPI)NonAf >90 (>60 ml/min/1.73 sqM) Glucose 98 (74-99) mg/dL Plasma Lactic Acid Fareed 1.3 (0.7-2.0) mmol/L Calcium 8.8 (8.4-10.2) mg/dL Total Bilirubin 0.6 (0.2-1.3) mg/dL AST 17 (17-59) U/L ALT 10 (4-49) U/L Alkaline Phosphatase 149 H (38-126) U/L C-Reactive Protein 4.4 H (<1.0) mg/dL Total Protein 8.2 (6.3-8.2) g/dL Albumin 3.9 (3.5-5.0) g/dL Disposition Clinical Impression: Abscess of leg, Mechanical heart valve present Disposition[facility] Instructions (If sedation given, give patient instructions): Abscess Incision and Drainage (ED) Referrals: Bar Bender DO [Primary Care Provider] - 1-2 days Time of Disposition: 22:22
[2023-07-08] MEDS ORDERED: ACETAMINOPHEN TAB 325 MG TAB PO PRN (22:22)
[2023-07-08] MEDS ORDERED: HYDROmorphone 1 MG/ML 1 ML SYRINGE IVP PRN (22:22)
[2023-07-08] MEDS ORDERED: NALOXONE 0.4 MG/ML 1 ML VIAL IV PRN (22:22)
[2023-07-08] MEDS ORDERED: HYDROmorphone 0.5 MG/0.5 ML SYRINGE IVP PRN (22:22)
[2023-07-08] MEDS ORDERED: ONDANSETRON 4 MG/2 ML VIAL IVP PRN (22:22)
[2023-07-08] MEDS: SODIUM CHLORIDE 0.9% 1,000 ML IV SCH (23:13)
[2023-07-08] MEDS ORDERED: HYDROcodone/APAP 10-325MG 1 EACH TAB PO PRN (23:57)
[2023-07-08] MEDS ORDERED: ALBUTEROL NEBULIZED 2.5 MG/3 ML INHALATION PRN (23:57)
--- NOTE | 2023-07-09 00:02 | P.HPIM ---
History of Present Illness H&P Date: 07/08/23 Chief Complaint: left lower extremity pain and swelling 53 year old male with mechanical aortic valve. he is coming in upon recommendation of his PCP due to suspected left lower extremity abscess . he notices an area of pain over his anterior casarez about a week ago , that started swelling up over the past few days resulting in more pain and became more prominent , denies any injuries to the area, denies any recent travel or hospital stay , he has history of blood clots in his right leg 2 years ago , he is on coumadin for mechanical aortic valve, however, it was on hold for few days, as he had a bone marrow biopsy recently and had to stop his Coumadin, currently he is bridging Coumadin with Lovenox post his procedure. his PCP was concerned regarding the abscess due to his history of mechanical heart valve and recommended going to the hospital for IV antibiotics. he denies any fever, chills, nausea vomiting, chest pain , trouble breathing abd pain changes in bowel or urinary habits, denies any GI bleeding he denies any history of diabetes denies any illicit drugs while in the ED , I& D was performed. patient indicates he has chronic swelling of his left lower extremity that has not been changed , this is due to prior left knee surgery or vascular insufficiency , currently he is following with vascular surgery for definite diagnosis and treatment review of systems Pertinent positives as noted in HPI. All other systems were reviewed and are negative on exam Constitutional: No acute distress, conversant, pleasant Eyes: Anicteric sclerae, moist conjunctiva, Pupils equal round reactive to light ENMT: NC/AT Oropharynx clear, no erythema, or exudates Neck: Supple, no masses, or JVD No carotid bruits No thyromegaly Lungs: Clear to auscultation Clear to percussion Normal respiratory effort, no accessory muscle use Cardiovascular: Heart regular in rate and rhythm, mechanical heart valve sound . No murmurs, gallops, or rubs No peripheral edema Abdominal: Soft Nontender, no guarding, rebound or rigidity Abdomen moving with respiration Normoactive bowel sounds No hepatomegaly, No splenomegaly No palpable mass No abdominal wall hernia noted Skin: open abscess over mid anterior left leg with gauze packing , no surrounding erythema or induration , no purulent discharge, guaze has blood tinged discharge, no fould smell no warmth to the touch compared to the rest of the leg Extremities: non pitting edema of entire left leg , chronic per patient No digital cyanosis No clubbing Pedal pulses intact and symmetrical Radial pulses intact and symmetrical No calf tenderness Psychiatric: Alert and oriented to person, place and time Appropriate affect fair judgement Neuro Muscles Strength 5/5 in all 4 extremities Sensation to light touch grossly present throughout Cranial nerves II-XII grossly intact Lymphatics: no palpable cervical or supraclavicular lymph nodes Past Medical History Past Medical History: Asthma, Deep Vein Thrombosis (DVT), GERD/Reflux, Hyperlipidemia, Memory Impairment, Osteoarthritis (OA), Pneumonia, Sleep Apnea/CPAP/BIPAP Additional Past Medical History / Comment(s): Bicuspid aortic valve 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 CPAP use. Hx DVT right leg 2 yrs ago. Hx pneumonia a long time ago. "Poor memory." History of Any Multi-Drug Resistant Organisms: None Reported Past Surgical History: Back Surgery, Bariatric Surgery, Bladder Surgery, Cardiac Valve Replacement, Orthopedic Surgery Additional Past Surgical History / Comment(s): L TKA, Left knee scope X 2, Right knee pinning, GASTRIC BAND SURGERY, aortic valve replacement with mechanical valve, repair of arterial aneurysm right radial arteryleft knee repl, bone marrow biopsy 07/07/23 Past Anesthesia/Blood Transfusion Reactions: Postoperative Nausea & Vomiting (PONV) Past Psychological History: No Psychological Hx Reported Smoking Status: Never smoker Past Alcohol Use History: None Reported Past Drug Use History: None Reported - Past Family History Mother Additional Family Medical History / Comment(s): B/L knee replacement. Father Family Medical History: Diabetes Mellitus Additional Family Medical History / Comment(s): Cardiac issues. Medications and Allergies Home Medications Medication Instructions Recorded Confirmed Type Ascorbic Acid [Vitamin C] 500 mg PO DAILY 03/02/17 07/08/23 History Atorvastatin [Lipitor] 40 mg PO HS 03/02/17 07/08/23 History Omeprazole 40 mg PO BID 03/02/17 07/08/23 History Albuterol Inhaler [Ventolin Hfa 1 - 2 puff INHALATION RT-Q6H PRN 04/22/23 07/08/23 History Inhaler] Metoprolol Tartrate [Lopressor] 25 mg PO BID 04/22/23 07/08/23 History Cholecalciferol [Vitamin D3 (125 125 mcg PO DAILY 07/08/23 07/08/23 History Mcg = 5000 Iu)] Cyanocobalamin (Vitamin B-12) 1,000 mcg PO DAILY 07/08/23 07/08/23 History [Vitamin B-12] Enoxaparin [Lovenox] 30 mg SQ Q12H 07/08/23 07/08/23 History HYDROcodone/APAP 10-325MG [[place] 1 tab PO QID PRN 07/08/23 07/08/23 History 10-325] Meloxicam [Mobic] 15 mg PO DAILY 07/08/23 07/08/23 History Warfarin [Coumadin] 2.5 mg PO DIRECTED 07/08/23 07/08/23 History Warfarin [Coumadin] 5 mg PO DIRECTED 07/08/23 07/08/23 History Allergies Allergy/AdvReac Type Severity Reaction Status Date / Time phenobarbital AdvReac Hyperactivi Verified 07/08/23 17:13 ty testosterone AdvReac Joint Pain Verified 07/08/23 17:13 with Injection only Physical Exam Vitals: Vital Signs Temp Pulse Resp BP Pulse Ox 07/08/23 23:16 98.1 F 67 18 114/65 98 07/08/23 19:42 98.6 F 76 18 120/82 100 07/08/23 17:13 98.1 F 85 18 125/83 99 Intake and Output 07/08/23 07/08/23 07/09/23 14:59 22:59 06:59 Other: Weight 92.986 kg Results CBC & Chem 7: 07/08/23 18:32 07/08/23 18:32 Labs: Abnormal Lab Results - Last 24 Hours (Table) 07/08/23 07/08/23 Range/Units 18:32 18:32 Hgb 11.9 L (13.0-17.5) gm/dL Hct 35.7 L (39.0-53.0) % RDW 17.0 H (11.5-15.5) % BUN 22 H (9-20) mg/dL Alkaline Phosphatase 149 H (38-126) U/L C-Reactive Protein 4.4 H (<1.0) mg/dL Assessment and Plan Assessment: 53 year old male with mechanical aortic valve , coming in for left leg abscess upon recommendation of his PCP for IV antibiotics , I discussed the case with ED doc and I accepted the admission for left leg abscess s/p I&D for IV antibiotics and ID evaluation with anticipated length of stay < 2 midnights left leg abscess patient PCP concerned regarding his mechanical aortic valve, patient requesting IV antibiotics and ID evaluation follow up cultures continue with unasyn 1.5 gm IVPB q6hrs tylenol for fever, afebrile , no leukocytosis pain control with norco 10-325 mg po 1 tab q 6hr PRN (home medication) leg xray , showed soft tissue swelling mechanical aortic valve continue with coumadin dosing by [employer] bridging with lovenox sc however he is only on 30 mg BID (this is subtheraputic dose) , will continue this home dose check stat PT/INR blood work overall unremarkable Hgb 11.9 WBC 6.6 renal fucntion Na 142, K 4.7, BUN 22, cr 0.7 CRP elevated 4.4 full code DVT PPX on coumadin dosing by [employer]
[2023-07-09] MEDS ORDERED: WARFARIN 5 MG TAB PO ONE ×2 (00:30→18:00)
[2023-07-09] MEDS: ENOXAPARIN 30 MG/0.3 ML SYRINGE SQ SCH ×2 (00:37→14:18)
[2023-07-09] MEDS: AMPICILLIN-SULBACTAM 1.5 GM in SODIUM CHLORIDE 0.9% 50 ML IVPB SCH ×3 (00:37→14:18)
[2023-07-09] MEDS: PANTOPRAZOLE 40 MG TABLET PO SCH ×3 (00:37→17:06)
[2023-07-09] MEDS: METOPROLOL TARTRATE 25 MG TAB PO SCH ×3 (00:37→19:43)
[2023-07-09 01:35] LABS: INR 1.1 (<1.2); Prothrombin Time 11.3 sec (9.0-12.0)
[2023-07-09] MEDS: SODIUM CHLORIDE 0.9% 1,000 ML IV SCH ×2 (08:52→17:07)
[2023-07-09] MEDS ORDERED: VANCOMYCIN IV PER PHARMACY 1 EACH MISC MISCELLANE PRN (09:02)
[2023-07-09] MEDS ORDERED: VANCOMYCIN 1,750 MG in SODIUM CHLORIDE 0.9% 500 ML 500 ML IVPB ONE (10:00)
--- NOTE | 2023-07-09 10:58 | P.CONS ---
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 status post repair about 12 years ago with a mechanical aortic valve, patient did develop pain swelling and redness to the left lower extremity that apparently has been getting worse for the last few days patient has a history of any trauma mention the area was getting more swollen and red and coming up to ahead patient was describing pain to be more of a dull aching to sharp 7-8 out of 10 with no radiation, patient mention he did have some sweats and chills but denies high- grade fever, patient presented to hospital was afebrile, patient did have a 6.6 creatinine 0.77 CRP was mildly elevated patient did have a drainage of the left lower leg mostly blood however the patient mention there was some pus as well patient was started on IV Unasyn admitted to the hospital infections disease was consulted for need for IV antibiotic therapy and his history of mechanical heart valve Review of Systems Positive point and negatives has been mentioned in the HPI, complete review of systems was performed and all other systems are negative Past Medical History Past Medical History: Asthma, Deep Vein Thrombosis (DVT), GERD/Reflux, Hyperlipidemia, Memory Impairment, Osteoarthritis (OA), Pneumonia, Sleep Apnea/CPAP/BIPAP Additional Past Medical History / Comment(s): Bicuspid aortic valve 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 CPAP use. Hx DVT right leg 2 yrs ago. Hx pneumonia a long time ago. "Poor memory." History of Any Multi-Drug Resistant Organisms: None Reported Past Surgical History: Back Surgery, Bariatric Surgery, Bladder Surgery, Cardiac Valve Replacement, Orthopedic Surgery Additional Past Surgical History / Comment(s): L TKA, Left knee scope X 2, Right knee pinning, GASTRIC BAND SURGERY, aortic valve replacement with mechanical valve, repair of arterial aneurysm right radial arteryleft knee repl, bone marrow biopsy 07/07/23 Past Anesthesia/Blood Transfusion Reactions: Postoperative Nausea & Vomiting (PONV) Past Psychological History: No Psychological Hx Reported Smoking Status: Never smoker Past Alcohol Use History: None Reported Past Drug Use History: None Reported - Past Family History Mother Additional Family Medical History / Comment(s): B/L knee replacement. Father Family Medical History: Diabetes Mellitus Additional Family Medical History / Comment(s): Cardiac issues. Medications and Allergies Home Medications Medication Instructions Recorded Confirmed Type Ascorbic Acid [Vitamin C] 500 mg PO DAILY 03/02/17 07/08/23 History Atorvastatin [Lipitor] 40 mg PO HS 03/02/17 07/08/23 History Omeprazole 40 mg PO BID 03/02/17 07/08/23 History Albuterol Inhaler [Ventolin Hfa 1 - 2 puff INHALATION RT-Q6H PRN 04/22/23 07/08/23 History Inhaler] Metoprolol Tartrate [Lopressor] 25 mg PO BID 04/22/23 07/08/23 History Cholecalciferol [Vitamin D3 (125 125 mcg PO DAILY 07/08/23 07/08/23 History Mcg = 5000 Iu)] Cyanocobalamin (Vitamin B-12) 1,000 mcg PO DAILY 07/08/23 07/08/23 History [Vitamin B-12] Enoxaparin [Lovenox] 30 mg SQ Q12H 07/08/23 07/08/23 History HYDROcodone/APAP 10-325MG [[place] 1 tab PO QID PRN 07/08/23 07/08/23 History 10-325] Meloxicam [Mobic] 15 mg PO DAILY 07/08/23 07/08/23 History Warfarin [Coumadin] 2.5 mg PO DIRECTED 07/08/23 07/08/23 History Warfarin [Coumadin] 5 mg PO DIRECTED 07/08/23 07/08/23 History Allergies Allergy/AdvReac Type Severity Reaction Status Date / Time phenobarbital AdvReac Hyperactivi Verified 07/08/23 17:13 ty testosterone AdvReac Joint Pain Verified 07/08/23 17:13 with Injection only Physical Exam Vitals: Vital Signs Temp Pulse Pulse Resp BP BP Pulse Ox 07/09/23 07:46 97.6 F 64 16 105/70 100 07/09/23 00:32 98.2 F 65 15 115/70 98 07/08/23 23:16 98.1 F 67 18 114/65 98 07/08/23 19:42 98.6 F 76 18 120/82 100 07/08/23 17:13 98.1 F 85 18 125/83 99 Intake and Output 07/08/23 07/09/23 07/09/23 22:59 06:59 14:59 Other: # Voids 2 Weight 92.986 kg 92.986 kg GENERAL DESCRIPTION: Middle-aged male lying in bed, no distress. No tachypnea or accessory muscle of respiration use. HEENT: Shows Pallor , no scleral icterus. Oral mucous membrane is dry. NECK: Trachea central, no thyromegaly. LUNGS: Unlabored breathing. Clear to auscultation anteriorly. No wheeze or crackle. HEART: S1, S2, regular rate and rhythm. ABDOMEN: Soft, no tenderness , EXTREMITIES: Left lower leg with an ulcer post drainage of possible infected hematoma SKIN: No rash, no masses palpable. NEUROLOGICAL: The patient is awake, alert, oriented x3, mood and affect normal. Results CBC & Chem 7: 07/08/23 18:32 07/08/23 18:32 Labs: Abnormal Lab Results - Last 24 Hours (Table) 07/08/23 07/08/23 Range/Units 18:32 18:32 Hgb 11.9 L (13.0-17.5) gm/dL Hct 35.7 L (39.0-53.0) % RDW 17.0 H (11.5-15.5) % BUN 22 H (9-20) mg/dL Alkaline Phosphatase 149 H (38-126) U/L C-Reactive Protein 4.4 H (<1.0) mg/dL Assessment and Plan (1) Abscess of leg Current Visit: Yes Status: Acute Code(s): L02.419 - CUTANEOUS ABSCESS OF LIMB, UNSPECIFIED SNOMED Code(s): 783323346 (2) Mechanical heart valve present Current Visit: Yes Status: Acute Code(s): Z95.2 - PRESENCE OF PROSTHETIC HEART VALVE SNOMED Code(s): 49876992525118 Plan: 1patient presented to hospital with left lower extremity pain swelling redness concerning for hematoma underlying infected hematoma not entirely excluded as the patient mention some drainage of the pus along with blood at the time of drainage procedure in the ER on 07/08/2023 with the cultures currently pending 2-patient to continue with Unasyn however will add vancomycin pharmacy to dose marylu joya waiting for the culture finalized this was discussed with the admitting team 3-local wound care with Aquacel silver packing of the wound daily discussed with the RN We will follow on clinical condition and cultures to further adjust medication if needed Thank you for this consultation will follow this patient with you Dictation was produced using [employer] dictation software. please excuse any g rammatical, word or spelling errors. Time with Patient: Greater than 30
--- NOTE | 2023-07-09 14:29 | P.PN ---
Subjective Progress Note Date: 07/09/23 (delayed charting seen at 0900) Patient is a 53-year-old male with congenital bicuspid aortic valve status post mechanical aortic valve replacement, prior DVT, hypertension, and dyslipidemia presented to the hospital the direction of his primary care physician for abscess over the left casarez. On arrival to the ER his vital signs within normal limits. Laboratory analysis included CBC, coags, CMP, and CRP which were remarkable for BUN 21, alkaline phosphatase 149, and CRP of 4.4. Tib-fib x-ray demonstrated soft tissue swelling with periprosthetic lucency in the medial component of the femoral prosthesis with small joint effusion. He was started on Unasyn. Arrangements are made for admission. Infectious disease was consulted. Patient seen and examined at bedside. He reports that he was taken off of his Coumadin to get a bone marrow biopsy which was performed in the right hip about a week ago. Since being done due to persistent anemia with undetermined etiology. He then noticed one week ago that his left casarez was hard and swollen. Then over the last 2 days he noted a fluctuant area on the top of his casarez and therefore decided to present to his PCP who instructed him to come to the hospital. Vital signs reviewed General: nontoxic, no distress, appears at stated age Cardiovascular: S1-S2 regular with mid systolic click, positive posterior tibial pulse bilateral, Lungs: CTA bilateral, no rhonchi, no rales , no accessory muscle use Abdominal: soft, nontender to palpation, no guarding, no appreciable organomegaly Ext: no gross muscle atrophy, no edema b/l lower extremities, no contractures, erythema over the left tibial notch with some warmth, incision noted with sanguinous drainage Neuro: CN II-XI grossly intact, no focal neuro deficits Psych: Alert, oriented, appropriate affect Assessment/Plan: Abscess with surrounding soft tissue cellulitis left knee, concern for possible underlying osteomyelitis versus joint infection in the setting of a patient with a mechanical heart valve Subtherapeutic anticoagulation -Case discussed with Dr. Argueta. Will add vancomycin -Vancomycin dosing per creatinine and weight. Monitor creatinine and vancomycin toxicity levels -Continue with Unasyn 1.5 g increased to 3 g every 6 hours IV piggyback -Coumadin 5 mg tonight, repeat PT/INR in a.m. -Await cultures Chronic: Asthma without exacerbation GERD Prior DVT Dyslipidemia Memory impairment Imaging: None new Data Review: INR 1.1 DVT prophylaxis: lovenox and coumadin bridge Anticipated discharge date: in 24-[address]: home This dictation was prepared using [employer] voice recognition software. [facility] every attempt is made to correct errors during dictation some may still exist. Objective - Vital Signs Vital signs: Vital Signs Temp 97.6 F 07/09/23 07:46 Pulse 64 07/09/23 07:46 Resp 16 07/09/23 08:00 BP 105/70 07/09/23 07:46 Pulse Ox 100 07/09/23 07:46 FiO2 Intake & Output 07/08/23 07/09/23 07/09/23 18:59 06:59 18:59 Intake Total 118 Balance 118 Weight 92.986 kg 92.986 kg Intake: Oral 118 Other: # Voids 2 - Labs CBC & Chem 7: 07/08/23 18:32 07/08/23 18:32 Labs: Abnormal Lab Results - Last 24 Hours (Table) 07/08/23 07/08/23 Range/Units 18:32 18:32 Hgb 11.9 L (13.0-17.5) gm/dL Hct 35.7 L (39.0-53.0) % RDW 17.0 H (11.5-15.5) % BUN 22 H (9-20) mg/dL Alkaline Phosphatase 149 H (38-126) U/L C-Reactive Protein 4.4 H (<1.0) mg/dL
[2023-07-09] MEDS: AMPICILLIN-SULBACTAM 3 GM in SODIUM CHLORIDE 0.9% 100 ML IVPB SCH ×2 (17:05→23:15)
[2023-07-09] MEDS: VANCOMYCIN 1,500 MG in SODIUM CHLORIDE 0.9% 500 ML 500 ML IVPB SCH (19:15)
[2023-07-09] MEDS: ATORVASTATIN 40 MG TAB PO SCH (19:43)
[2023-07-10] MEDS: VANCOMYCIN 1,500 MG in SODIUM CHLORIDE 0.9% 500 ML 500 ML IVPB SCH ×2 (01:50→10:45)
[2023-07-10] MEDS: ENOXAPARIN 30 MG/0.3 ML SYRINGE SQ SCH ×3 (01:50→23:43)
[2023-07-10 05:56] LABS: INR 1.4 (<1.2); Prothrombin Time 13.8 sec (9.0-12.0)
[2023-07-10 06:09] LABS: African American GFR (CKD) >90 (>60 ml/min/1.73 sqM); Anion Gap 2 mmol/L; Blood Urea Nitrogen 12 mg/dL (9-20); Carbon Dioxide 30 mmol/L (22-30); Chloride 108 mmol/L (98-107); Glucose 86 mg/dL (74-99); Non-African American GFR(CKD) >90 (>60 ml/min/1.73 sqM); Potassium 3.8 mmol/L (3.5-5.1); Sodium 140 mmol/L (137-145)
[2023-07-10 06:12] LABS: Anisocytosis Slight; HCT 33.4 % (39.0-53.0); HGB 10.4 gm/dL (13.0-17.5); Hypochromasia Slight; MCH 26.6 pg (25.0-35.0); MCHC 31.2 g/dL (31.0-37.0); Mean Platelet Volume 8.6; Platelet Count 183 k/uL (150-450); RBC 3.92 m/uL (4.30-5.90); WBC 3.7 k/uL (3.8-10.6)
[2023-07-10] MEDS: PANTOPRAZOLE 40 MG TABLET PO SCH ×2 (06:39→18:11)
[2023-07-10] MEDS: AMPICILLIN-SULBACTAM 3 GM in SODIUM CHLORIDE 0.9% 100 ML IVPB SCH ×4 (06:39→23:43)
[2023-07-10] MEDS: SODIUM CHLORIDE 0.9% 1,000 ML IV SCH ×3 (06:46→23:47)
[2023-07-10] MEDS: LACTOBACILLUS ACIDOPHILUS/PECT 1 EACH CAPSULE PO SCH ×2 (09:56→20:21)
[2023-07-10] MEDS: METOPROLOL TARTRATE 25 MG TAB PO SCH ×2 (09:57→20:21)
--- NOTE | 2023-07-10 11:20 | P.PN ---
Subjective Progress Note Date: 07/10/23 Patient is a 53-year-old male with congenital bicuspid aortic valve status post mechanical aortic valve replacement, prior DVT, hypertension, and dyslipidemia presented to the hospital the direction of his primary care physician for abscess over the left csaarez. On arrival to the ER his vital signs within normal limits. Laboratory analysis included CBC, coags, CMP, and CRP which were r emarkable for BUN 21, alkaline phosphatase 149, and CRP of 4.4. Tib-fib x-ray demonstrated soft tissue swelling with periprosthetic lucency in the medial component of the femoral prosthesis with small joint effusion. He had I and D with packing placed in the ED. He was started on Unasyn. Arrangements are made for admission. Infectious disease was consulted and vanco was added. Patient seen and examined at bedside. He has no complaints at this time. Denies any nausea or vomiting. Complains of some edema in his lower extremity. He does have a history of antibiotic associated diarrhea but no history of C. diff. Vital signs reviewed General: nontoxic, no distress, appears at stated age Cardiovascular: S1-S2 regular with mid systolic click, positive posterior tibial pulse bilateral, Lungs: CTA bilateral, no rhonchi, no rales , no accessory muscle use Abdominal: soft, nontender to palpation, no guarding, no appreciable organomegaly Ext: no gross muscle atrophy, no edema b/l lower extremities, no contractures, erythema over the left tibial notch with some warmth, incision noted with sanguinous drainage Neuro: CN II-XI grossly intact, no focal neuro deficits Psych: Alert, oriented, appropriate affect Assessment/Plan: Abscess with surrounding soft tissue cellulitis left knee, concern for possible underlying osteomyelitis versus joint infection in the setting of a patient with a mechanical heart valve Subtherapeutic anticoagulation -Continue with vancomycin being dosed trough levels, continue to monitor creatinine and trough for signs of toxicity -Continue with Unasyn 3 g every 6 hours IV piggyback -Coumadin 5 mg by mouth 1, recheck INR in a.m. Continue with Lovenox 30 mg subcutaneous every 12 hours -Patient will be transitioned to inpatient status. Discharge at this time would result in compromised care. Patient has a current mechanical heart valve and a left-sided knee replacement within the last 1 year, and an abscess located near the replaced joint. Unfortunately his white blood cell count is now low at 3.7 (down from 6.6). Discharge home at this time could lead to periprosthetic infection or seeding of the heart valve. Recommend continue hospitalization until culture results are available and white blood cell count has stabilized. -Await cultures Chronic: Asthma without exacerbation GERD Prior DVT Dyslipidemia Memory impairment Imaging: None new Data Review: Afebrile for the next 24 hours. Labs reviewed from today include CBC, coagulation panel, and basic metabolic profile. Remarkable for white blood cell count 3.7, hemoglobin 10.4, INR 1.4 DVT prophylaxis: lovenox and coumadin bridge Anticipated discharge date: in 24-[address]: home This dictation was prepared using [employer] voice recognition software. Though every attempt is made to correct errors during dictation some may still exist. Objective - Vital Signs Vital signs: Vital Signs Temp 98.0 F 07/10/23 07:00 Pulse 71 07/10/23 07:00 Resp 17 07/10/23 07:00 BP 119/73 07/10/23 07:00 Pulse Ox 100 07/10/23 07:00 FiO2 Intake & Output 07/09/23 07/10/23 07/10/23 18:59 06:59 18:59 Intake Total 118 Balance 118 Intake: Oral 118 Other: Voiding Method Toilet # Voids 2 3 # Bowel Movements 1 - Labs CBC & Chem 7: 07/10/23 05:29 07/10/23 05:29 Labs: Abnormal Lab Results - Last 24 Hours (Table) 07/10/23 07/10/23 07/10/23 Range/Units 05:29 05:29 05:29 WBC 3.7 L (3.8-10.6) k/uL RBC 3.92 L (4.30-5.90) m/uL Hgb 10.4 L (13.0-17.5) gm/dL Hct 33.4 L (39.0-53.0) % RDW 17.0 H (11.5-15.5) % PT 13.8 H (9.0-12.0) sec INR 1.4 H (<1.2) Chloride 108 H (98-107) mmol/L Calcium 8.0 L (8.4-10.2) mg/dL Microbiology - Last 24 Hours (Table) 07/08/23 21:04 Gram Stain - Preliminary Leg - Left 07/08/23 18:32 Blood Culture - Preliminary Blood
--- NOTE | 2023-07-10 11:58 | P.PN ---
Subjective Progress Note Date: 07/10/23 Principal diagnosis: Left leg infected hematoma Patient is a 53-year-old male with a past medical history Asthma, Deep Vein Thrombosis (DVT), GERD/Reflux, Hyperlipidemia, Memory Impairment, Osteoarthritis (OA), Pneumonia, Sleep Apnea/CPAP/BIPAP,Bicuspid aortic valve sta tus post replacement with mechanical valve 12 years ago presented to hospital with left lower extremity swelling redness likely infected hematoma status post drainage in the ER. On today's evaluation that is07/10/2023, the patient remains to be afebrile, the patient is breathing comfortably on room air without need for supplemental oxygen, the patient denies chest pain shortness of breath and no cough, patient denies nausea/vomiting /diarrhea, and denies any abdominal pain, the patient denies any worsening pain to the left leg Patient white count of 3.7, creatinine 0.67, cultures are currently pending Objective - Vital Signs Vital signs: Vital Signs Temp 98.0 F 07/10/23 07:00 Pulse 71 07/10/23 07:00 Resp 17 07/10/23 07:00 BP 119/73 07/10/23 07:00 Pulse Ox 100 07/10/23 07:00 FiO2 Intake & Output 07/09/23 07/10/23 07/10/23 18:59 06:59 18:59 Intake Total 118 Balance 118 Intake: Oral 118 Other: Voiding Method Toilet # Voids 2 3 # Bowel Movements 1 - Exam GENERAL DESCRIPTION: A middle-age male up in the chair in no distress RESPIRATORY SYSTEM: Unlabored breathing , decreased breath sounds at bases HEART: S1 S2 regular rate and rhythm , ABDOMEN: Soft , no tenderness EXTREMITIES: Left lower extremity swelling redness slightly decrease wound packed with Aquacel silver - Labs CBC & Chem 7: 07/10/23 05:29 07/10/23 05:29 Labs: Abnormal Lab Results - Last 24 Hours (Table) 07/10/23 07/10/23 07/10/23 Range/Units 05:29 05:29 05:29 WBC 3.7 L (3.8-10.6) k/uL RBC 3.92 L (4.30-5.90) m/uL Hgb 10.4 L (13.0-17.5) gm/dL Hct 33.4 L (39.0-53.0) % RDW 17.0 H (11.5-15.5) % PT 13.8 H (9.0-12.0) sec INR 1.4 H (<1.2) Chloride 108 H (98-107) mmol/L Calcium 8.0 L (8.4-10.2) mg/dL Microbiology - Last 24 Hours (Table) 07/08/23 21:04 Gram Stain - Preliminary Leg - Left 07/08/23 18:32 Blood Culture - Preliminary Blood Assessment and Plan (1) Abscess of leg Current Visit: Yes Status: Acute Code(s): L02.419 - CUTANEOUS ABSCESS OF LIMB, UNSPECIFIED SNOMED Code(s): 375784521 (2) Mechanical heart valve present Current Visit: Yes Status: Acute Code(s): Z95.2 - PRESENCE OF PROSTHETIC HEART VALVE SNOMED Code(s): 81818863459022 Plan: 1patient presented to hospital with left lower extremity pain swelling redness concerning for hematoma underlying infected hematoma not entirely excluded as the patient mention some drainage of the pus along with blood at the time of drainage procedure in the ER on 07/08/2023 with the cultures currently pending 2-local wound care with Aquacel silver packing of the wound daily 3-patient to continue with Unasyn and vancomycin pharmacy to dose while waiting for the culture finalized to determine his discharge antibiotics Dictation was produced using [employer] dictation software. please excuse any grammatical, word or spelling errors. Time with Patient: Less than 30
[2023-07-10] MEDS ORDERED: VANCOMYCIN TROUGH DUE 1 EACH MISC MISCELLANE ONE (17:00)
[2023-07-10] MEDS ORDERED: WARFARIN 5 MG TAB PO ONE (18:00)
[2023-07-10] MEDS: VANCOMYCIN 1,250 MG in SODIUM CHLORIDE 0.9% 250 ML IVPB SCH (18:47)
[2023-07-10] MEDS: ATORVASTATIN 40 MG TAB PO SCH (20:21)
[2023-07-11] MEDS: VANCOMYCIN 1,250 MG in SODIUM CHLORIDE 0.9% 250 ML IVPB SCH ×2 (02:53→10:33)
[2023-07-11 04:13] VITALS: RESP 16
[2023-07-11] MEDS: AMPICILLIN-SULBACTAM 3 GM in SODIUM CHLORIDE 0.9% 100 ML IVPB SCH ×2 (06:07→13:10)
[2023-07-11] MEDS: PANTOPRAZOLE 40 MG TABLET PO SCH (06:07)
[2023-07-11 07:46] LABS: Anisocytosis Slight; HCT 29.7 % (39.0-53.0); HGB 9.3 gm/dL (13.0-17.5); Hypochromasia Moderate; MCH 26.8 pg (25.0-35.0); MCHC 31.2 g/dL (31.0-37.0); MCV 85.9 fL (80.0-100.0); Platelet Count 172 k/uL (150-450); RBC 3.46 m/uL (4.30-5.90); RDW 17.2 % (11.5-15.5); WBC 4.1 k/uL (3.8-10.6)
[2023-07-11 07:52] LABS: INR 1.7 (<1.2); Prothrombin Time 17.1 sec (9.0-12.0)
[2023-07-11 07:59] LABS: African American GFR (CKD) >90 (>60 ml/min/1.73 sqM); Anion Gap 4 mmol/L; Blood Urea Nitrogen 13 mg/dL (9-20); Calcium 7.8 mg/dL (8.4-10.2); Carbon Dioxide 26 mmol/L (22-30); Chloride 110 mmol/L (98-107); Glucose 80 mg/dL (74-99); Non-African American GFR(CKD) >90 (>60 ml/min/1.73 sqM); Potassium 3.9 mmol/L (3.5-5.1); Sodium 140 mmol/L (137-145)
[2023-07-11 08:45] VITALS: BP 111/65; PULSE 64; TEMP 98
[2023-07-11] MEDS: METOPROLOL TARTRATE 25 MG TAB PO SCH (09:21)
[2023-07-11] MEDS: LACTOBACILLUS ACIDOPHILUS/PECT 1 EACH CAPSULE PO SCH (09:21)
[2023-07-11] MEDS: SODIUM CHLORIDE 0.9% 1,000 ML IV SCH (10:34)
[2023-07-11] MEDS ORDERED: FUROSEMIDE 10 MG/ML 2 ML VIAL IV ONE (11:45)
[2023-07-11] MEDS: ENOXAPARIN 30 MG/0.3 ML SYRINGE SQ SCH (11:45)
--- NOTE | 2023-07-11 13:59 | P.PN ---
Subjective Progress Note Date: 07/11/23 Principal diagnosis: Left leg infected hematoma Patient is a 53-year-old male with a past medical history Asthma, Deep Vein Thrombosis (DVT), GERD/Reflux, Hyperlipidemia, Memory Impairment, Osteoarthritis (OA), Pneumonia, Sleep Apnea/CPAP/BIPAP,Bicuspid aortic valve sta tus post replacement with mechanical valve 12 years ago presented to hospital with left lower extremity swelling redness likely infected hematoma status post drainage in the ER. On today's evaluation that is 07/11/2023, the patient continues to be afebrile, the patient is breathing comfortably on room air, the patient denies chest pain or cough, patient denies abdominal pain and no nausea/vomiting /diarrhea the patient denies pain to the left leg overall redness has decreased mostly blood stained drainage Patient white count of 4.1, creatinine 0.69 cultures are growing MSSA Objective - Vital Signs Vital signs: Vital Signs Temp 98.0 F 07/11/23 07:00 Pulse 64 07/11/23 07:00 Resp 16 07/11/23 07:00 BP 111/65 07/11/23 07:00 Pulse Ox 99 07/11/23 07:00 FiO2 Intake & Output 07/10/23 07/11/23 07/11/23 18:59 06:59 18:59 Other: Voiding Method Toilet Toilet # Voids 3 2 - Exam GENERAL DESCRIPTION: A middle-age male up in the chair in no distress RESPIRATORY SYSTEM: Unlabored breathing , decreased breath sounds at bases HEART: S1 S2 regular rate and rhythm , ABDOMEN: Soft , no tenderness EXTREMITIES: Left lower extremity swelling redness has decreased in intensity - Labs CBC & Chem 7: 07/11/23 06:49 07/11/23 06:49 Labs: Abnormal Lab Results - Last 24 Hours (Table) 07/11/23 07/11/23 07/11/23 Range/Units 06:49 06:49 06:49 RBC 3.46 L (4.30-5.90) m/uL Hgb 9.3 L (13.0-17.5) gm/dL Hct 29.7 L (39.0-53.0) % RDW 17.2 H (11.5-15.5) % PT 17.1 H (9.0-12.0) sec INR 1.7 H (<1.2) Chloride 110 H (98-107) mmol/L Calcium 7.8 L (8.4-10.2) mg/dL Microbiology - Last 24 Hours (Table) 07/08/23 19:06 Blood Culture - Preliminary Blood 07/08/23 18:32 Blood Culture - Preliminary Blood 07/08/23 21:04 Gram Stain - Preliminary Leg - Left Assessment and Plan (1) Abscess of leg Current Visit: Yes Status: Acute Code(s): L02.419 - CUTANEOUS ABSCESS OF LIMB, UNSPECIFIED SNOMED Code(s): 429106913 (2) Mechanical heart valve present Current Visit: Yes Status: Acute Code(s): Z95.2 - PRESENCE OF PROSTHETIC HEART VALVE SNOMED Code(s): 67646913307771 Plan: 1patient presented to hospital with left lower extremity pain swelling redness concerning for hematoma underlying infected hematoma not entirely excluded as the patient mention some drainage of the pus along with blood at the time of drainage procedure in the ER on 07/08/2023 with the cultures currently pending 2-local wound care with Aquacel silver packing of the wound daily 3-patient to continue with Unasyn however discontinue vancomycin , plan is to finish therapy with oral Keflex prescription was sent to the pharmacy and close outpatient follow-up Dictation was produced using [employer] dictation software. please excuse any grammatical, word or spelling errors. Time with Patient: Less than 30
--- NOTE | 2023-07-11 14:07 | P.DS ---
Providers Date of admission: 07/08/23 22:53 Expected date of discharge: 07/11/23 Attending physician: Abiodun Bautista MD Consults: 07/08/23 22:26 Consult Physician Urgent Consulting Provider: Tien Argueta Consult Reason/Comments: hx mechanical heart valve Do you want consulting provider notified?: Yes Primary care physician: Bar [facility] Hospital Course: Discharge Diagnosis: Methicillin sensitive Staph aureus abscess left casarez with surrounding soft tissue cellulitis in the setting of a patient with a mechanical heart valve Subtherapeutic Coumadin coagulopathy, history of mechanical mitral valve Asthma without exacerbation GERD Prior DVT Dyslipidemia Hospital Course: Patient is a 53-year-old male with congenital bicuspid aortic valve status post mechanical aortic valve replacement, prior DVT, hypertension, and dyslipidemia presented to the hospital the direction of his primary care physician for absc ess over the left casarez. On arrival to the ER his vital signs within normal limits. Laboratory analysis included CBC, coags, CMP, and CRP which were remarkable for BUN 21, alkaline phosphatase 149, and CRP of 4.4. Tib-fib x-ray demonstrated soft tissue swelling with periprosthetic lucency in the medial component of the femoral prosthesis with small joint effusion. He had I and D with packing placed in the ED. He was started on Unasyn. Arrangements are made for admission. Infectious disease was consulted and vanco was added. They day after admission his WBC went to less than 4, ti was determined that he should be followed closely for impending sepsis especially given his knee replacement) approximation to the location of infection and his mechanical heart valve. The following morning his white blood cell count was above 4. Cultures came back showing MSSA. He was determined stable for discharge home. Follow-up: Patient will receive Keflex 500 mg oral 4 times daily for the next 10 days for his MSSA infection, he'll continue to pack the wound and was supplied with packing and dressing supplies, he will follow up with Dr. Argueta in 1 week, he will follow up with Dr. Parra in 2-3 days. He will continue to use both Lovenox and Coumadin on discharge until his INR is greater than 2.5. He already has follow-up arranged for this. Patient seen and examined at bedside. Doing well, no complaints currently. Vital signs reviewed and stable. General: nontoxic, no distress, appears at stated age Cardiovascular: S1S2 reg, no murmur, positive posterior tibial pulse bilateral, Lungs: CTA bilateral, no rhonchi, no rales , no accessory muscle use Abdominal: soft, nontender to palpation, no guarding, no appreciable organomegaly Ext: no gross muscle atrophy, left lower external a 2+ pitting edema, small incision left casarez, no purulent drainage but still having some sanguinous drainage. Neuro: CN II-XI grossly intact, no focal neuro deficits Psych: Alert, oriented, appropriate affect A total of 32 minutes of time were spent preparing this complex discharge summary. Patient was discharged on 07/11/23. This dictation was prepared using [employer] voice recognition software. Though every attempt is made to correct errors during dictation some may still exist. Plan - Discharge Summary New Discharge Prescriptions: New Cephalexin [Keflex] 500 mg PO Q6HR 10 Days #40 cap Continue Atorvastatin [Lipitor] 40 mg PO HS Ascorbic Acid [Vitamin C] 500 mg PO DAILY Omeprazole 40 mg PO BID Warfarin [Coumadin] 5 mg PO DIRECTED HYDROcodone/APAP 10-325MG [[place] 10-325] 1 tab PO QID PRN PRN Reason: Pain Albuterol Inhaler [Ventolin Hfa Inhaler] 1 - 2 puff INHALATION RT-Q6H PRN PRN Reason: Shortness Of Breath Metoprolol Tartrate [Lopressor] 25 mg PO BID Warfarin [Coumadin] 2.5 mg PO DIRECTED Enoxaparin [Lovenox] 30 mg SQ Q12H Meloxicam [Mobic] 15 mg PO DAILY Cholecalciferol [Vitamin D3 (125 Mcg = 5000 Iu)] 125 mcg PO DAILY Cyanocobalamin (Vitamin B-12) [Vitamin B-12] 1,000 mcg PO DAILY Discharge Medication List Ascorbic Acid [Vitamin C] 500 mg PO DAILY 03/02/17 [History] Atorvastatin [Lipitor] 40 mg PO HS 03/02/17 [History] Omeprazole 40 mg PO BID 03/02/17 [History] Albuterol Inhaler [Ventolin Hfa Inhaler] 1 - 2 puff INHALATION RT-Q6H PRN 04/22/23 [History] Metoprolol Tartrate [Lopressor] 25 mg PO BID 04/22/23 [History] Cholecalciferol [Vitamin D3 (125 Mcg = 5000 Iu)] 125 mcg PO DAILY 07/08/23 [His tory] Cyanocobalamin (Vitamin B-12) [Vitamin B-12] 1,000 mcg PO DAILY 07/08/23 [History] Enoxaparin [Lovenox] 30 mg SQ Q12H 07/08/23 [History] HYDROcodone/APAP 10-325MG [[place] 10-325] 1 tab PO QID PRN 07/08/23 [History] Meloxicam [Mobic] 15 mg PO DAILY 07/08/23 [History] Warfarin [Coumadin] 2.5 mg PO DIRECTED 07/08/23 [History] Warfarin [Coumadin] 5 mg PO DIRECTED 07/08/23 [History] Cephalexin [Keflex] 500 mg PO Q6HR 10 Days #40 cap 07/11/23 [Rx] Follow up Appointment(s)/Referral(s): Bar Bender DO [Primary Care Provider] - 1-2 days Tien Argueta MD [STAFF PHYSICIAN] - 1 Week Patient Instructions/Handouts: Abscess Incision and Drainage (ED) Activity/Diet/Wound Care/Special Instructions: Activity: as tolerated Diet: Heart Healthy Wound Care: Pack wound and cover with 4X 4 daily, keep covered in shower/bath. Dr. Argueta will give more instructions on follow-up. Special Instructions: Return with increasing redness of the leg, fevers, unusual fatigue. Continue to use Lovenox and follow up with your physician to complete your Lovenox and Coumadin bridging. On day of discharge INR 1.7 Take all antibiotics until course is completed Discharge Disposition: HOME SELF-CARE
[2023-07-11] MEDS ORDERED: CEPHALEXIN 500 MG CAP PO STA (14:28)
[2023-07-11] MEDS ORDERED: WARFARIN 5 MG TAB PO ONE (18:00)
[2023-07-12] MEDS ORDERED: VANCOMYCIN TROUGH DUE 1 EACH MISC MISCELLANE ONE (09:00)
== END 2023-07-11 15:03 | disposition home or self-care (01) ==
LOC: EC 17:03 → 6NMEDSUR 22:53
PROVIDERS: ADMIT Internal Medicine; ATTEND Internal Medicine
DX: L02.416 Cutaneous abscess of left lower limb (principal); B95.61 Methicillin susceptible Staphylococcus aureus infection as the cause of diseases classified elsewhere; R79.82 Elevated C-reactive protein (CRP); G31.84 Mild cognitive impairment of uncertain or unknown etiology; K21.9 Gastro-esophageal reflux disease without esophagitis; E78.5 Hyperlipidemia, unspecified; G47.30 Sleep apnea, unspecified; I10 Essential (primary) hypertension; J45.909 Unspecified asthma, uncomplicated; Z86.718 Personal history of other venous thrombosis and embolism; Z95.2 Presence of prosthetic heart valve; Z79.1 Long term (current) use of non-steroidal anti-inflammatories (NSAID); Z79.01 Long term (current) use of anticoagulants; Z79.899 Other long term (current) drug therapy
CPT/HCPCS: 96361 ×3; 96366 ×3; 96367; 96372 ×3; 96375 ×2; 96368; 96376; 96365; 99285; 36415; 80053; 80048 ×2; 83605; 85025; 85027 ×2; 80202; 85610 ×3; 86140; 87040; 87070; 87205; 87075; 87077; 87186; 73590; G0378 ×4; J3370 ×3; J2270; J1940; J1650 ×3; J0295 ×5

== ENCOUNTER → 2023-09-07 | Outpatient (CLI) | payer MEDICAID, MEDICARE ==
[2023-09-07 14:39] VITALS: BP 134/71; PULSE 75; RESP 16; TEMP 98; BMI 32.3
--- NOTE | 2023-09-07 15:51 | P.BASOAP ---
Subjective Progress Note Date: 09/07/23 Principal diagnosis: Morbid obesity Patient returns for recheck. He was last seen earlier this summer. At this time the patient was having multiple issues most worrisome was fairly significant progressive weight loss. His lap band was emptied at that time 5 mL was removed. Patient has had an extensive workup and no evidence of malignancy or other issues have been identified. The patient says he has gained a lot of weight. BMI increased now to 32. He would like fluid added back to his band. Objective - Vital Signs Vital signs: Vital Signs Temp 98 F 09/07/23 14:22 Pulse 75 09/07/23 14:22 Resp 16 09/07/23 14:22 BP 134/71 09/07/23 14:22 Pulse Ox FiO2 Intake & Output 09/06/23 09/07/23 09/07/23 18:59 06:59 18:59 Weight 102.058 kg - Exam Abdomen: Soft, nontender, nondistended Assessment/Plan (1) Morbid obesity Narrative/Plan: 53-year-old male with morbid obesity. Patient's malignancy workup is negative at this time. He would like fluid added back to his band. We'll add 2 mL back to the band after it had 5 mL removed last visit. Follow-up if further restrict ion required. The patient's lap band port was palpated. The site was aseptically prepped. The Chen needle was advanced into the port. A total of 2 ml of fluid was added. Pressure was held and a sterile dressing was applied. Plan: Date: 09/07/23 Initial Weight: 127.459 kg Initial BMI: 40.3 Current Weight: 102.058 kg Current BMI: 32.3 Type of Surgery: Adjustable Gastric Banding Total Volume in Band: 4.3 Previous Volume: 2.3 Volume Removed: Volume Added: 2.0 Band Size:
== END ==
LOC: BARWHC3 13:53
PROVIDERS: ATTEND Surgery
DX: E66.01 Morbid (severe) obesity due to excess calories (principal); Z46.51 Encounter for fitting and adjustment of gastric lap band; Z98.84 Bariatric surgery status; Z68.32 Body mass index [BMI] 32.0-32.9, adult; Z88.8 Allergy status to other drugs, medicaments and biological substances
CPT/HCPCS: 99212

== ENCOUNTER → 2023-09-23 | Outpatient (CLI) | payer MEDICAID, MEDICARE ==
--- NOTE | 2023-09-23 13:38 | NM ---
EXAMINATION TYPE: NM bone 3 phase DATE OF EXAM: 09/23/2023 COMPARISON: NONE CLINICAL INDICATION: Male, 53 years old with history of Z96.652 presence of L artificial knee join; Triple phase bone scintigraphy was performed following the injection of 24.5 mCi Tc 99m MDP. Immedia te images and 5 hours post injection images acquired. FINDINGS: There is increased flow to the left knee. Findings increased soft tissue uptake in the left knee. There is increased uptake surrounding the knee prostheses. IMPRESSION: Abnormal flow and uptake findings could be consistent with either loosening or infection in the appro priate clinical setting. Consider [facility] WBC study.
== END | disposition home or self-care (01) ==
LOC: RADNMMAIN 06:57
PROVIDERS: ATTEND Orthopaedic Surgery
DX: Z96.652 Presence of left artificial knee joint (principal)
CPT/HCPCS: 78315; A9503

== ENCOUNTER → 2023-10-11 | Outpatient (CLI) | payer MEDICAID, MEDICARE ==
--- NOTE | 2023-10-11 15:58 | NM ---
EXAMINATION TYPE: NM WBC limited DATE OF EXAM: 10/11/2023 COMPARISON: 09/23/2023 bone scan and 07/08/2023 radiographs CLINICAL INDICATION: Male, 53 years old with history of Z96.652 PRESENCE OF LEFT ARTIFICIAL KNEE JOIN T; TECHNIQUE: Following administration of 17.2 mCi Tc99m Ceretec. Images obtained 3.5 hours post injec tion. Multiple projections are obtained. FINDINGS: Imaging is centered at the bilateral knees. There is intense activity about the patient's stemmed lef t total knee arthroplasty as seen with the patient's three-phase bone scan. No abnormal activity seen on the right. IMPRESSION: Intense increased activity along the stemmed left total knee arthroplasty. Unable to exclude loosenin g or infection.
== END | disposition home or self-care (01) ==
LOC: RADNMMAIN 06:46
PROVIDERS: ATTEND Orthopaedic Surgery
DX: Z96.652 Presence of left artificial knee joint (principal)
CPT/HCPCS: 78300; A9569

== ENCOUNTER 2024-01-05 18:55 | Emergency (ER) | payer MEDICAID, MEDICARE ==
[2024-01-05] MEDS: ADENOSINE 3 MG/ML 2 ML VIAL IVP STA (19:02)
[2024-01-05 19:17] LABS: Basophils # (A) 0.1 k/uL (0-0.2); Basophils % (A) 1 %; Eosinophils # (A) 0.3 k/uL (0-0.7); Eosinophils % (A) 3 %; HCT 38.8 % (39.0-53.0); HGB 11.9 gm/dL (13.0-17.5); Lymphocytes # (A) 2.5 k/uL (1.0-4.8); Lymphocytes % (A) 23 %; MCH 26.6 pg (25.0-35.0); MCHC 30.8 g/dL (31.0-37.0); MCV 86.1 fL (80.0-100.0); Mean Platelet Volume 7.8; Monocytes # (A) 0.7 k/uL (0-1.0); Monocytes % (A) 6 %; Neutrophils # (A) 7.3 k/uL (1.3-7.7); Neutrophils % (A) 66 %; Platelet Count 303 k/uL (150-450); RDW 14.6 % (11.5-15.5)
[2024-01-05 19:26] LABS: INR 2.9 (<1.2); Partial Thromboplastin Time 49.2 sec (22.0-30.0); Prothrombin Time 28.5 sec (10.0-12.5)
[2024-01-05 19:28] LABS: ALT 10 U/L (4-49); AST 20 U/L (17-59); African American GFR (CKD) >90 (>60 ml/min/1.73 sqM); Albumin 3.9 g/dL (3.5-5.0); Alkaline Phosphatase 133 U/L (38-126); Anion Gap 9 mmol/L; Blood Urea Nitrogen 16 mg/dL (9-20); Calcium 8.8 mg/dL (8.4-10.2); Carbon Dioxide 25 mmol/L (22-30); Chloride 104 mmol/L (98-107); Glucose 146 mg/dL (74-99); Magnesium 1.9 mg/dL (1.6-2.3); Non-African American GFR(CKD) >90 (>60 ml/min/1.73 sqM); Potassium 3.9 mmol/L (3.5-5.1); Sodium 138 mmol/L (137-145); Total Bilirubin 0.6 mg/dL (0.2-1.3); Total Protein 8.1 g/dL (6.3-8.2)
--- NOTE | 2024-01-05 19:30 | ED ---
General Adult HPI - General Chief complaint: Arrhythmia/Palpitations Stated complaint: heart racing Time Seen by Provider: 01/05/24 19:00 Source: patient, RN notes reviewed, old records reviewed Mode of arrival: EMS Limitations: no limitations - History of Present Illness Initial comments: This is a 53-year-old male with a past medical history significant for a valve replacement and is on Coumadin currently. Patient also has SVT. Patient states today he was sitting down eating and he started feeling his heart racing got up walked around a little bit and his heart continued to race and he got to the point where he was having some difficulty taking a deep breath he felt and so he decided come to the emergency department. Patient denies any and or chest pain. Patient denies any recent fever chills or cough or patient has any abdominal pain patient has nausea vomiting diarrhea. Patient has any back pain. Patient denies headache patient has numbness weakness - Related Data Home Medications Medication Instructions Recorded Confirmed Ascorbic Acid [Vitamin C] 500 mg PO DAILY 03/02/17 09/09/23 Atorvastatin [Lipitor] 40 mg PO HS 03/02/17 09/09/23 Omeprazole 40 mg PO BID 03/02/17 09/09/23 Albuterol Inhaler [Ventolin Hfa 1 - 2 puff INHALATION RT-Q6H PRN 04/22/23 09/09/23 Inhaler] Metoprolol Tartrate [Lopressor] 25 mg PO BID 04/22/23 09/09/23 Cholecalciferol [Vitamin D3 (125 125 mcg PO DAILY 07/08/23 09/09/23 Mcg = 5000 Iu)] Cyanocobalamin (Vitamin B-12) 1,000 mcg PO DAILY 07/08/23 09/09/23 [Vitamin B-12] Enoxaparin [Lovenox] 30 mg SQ Q12H 07/08/23 09/09/23 HYDROcodone/APAP 10-325MG [Dahl[place] 1 tab PO QID PRN 07/08/23 09/09/23 10-325] Meloxicam [Mobic] 15 mg PO DAILY 07/08/23 09/09/23 Warfarin [Coumadin] 2.5 mg PO DIRECTED 07/08/23 09/09/23 Warfarin [Coumadin] 5 mg PO DIRECTED 07/08/23 09/09/23 Previous Rx's Medication Instructions Recorded Cephalexin [Keflex] 500 mg PO Q6HR 10 Days #40 cap 07/11/23 Allergies Allergy/AdvReac Type Severity Reaction Status Date / Time phenobarbital AdvReac Hyperactivi Verified 07/08/23 17:13 ty testosterone AdvReac Joint Pain Verified 07/08/23 17:13 with Injection only Review of Systems ROS Statement: Those systems with pertinent positive or pertinent negative responses have been documented in the HPI. ROS Other: All systems not noted in ROS Statement are negative. 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 CPAP use. Hx DVT right leg 2 yrs ago. Hx pneumonia a long time ago. "Poor memory." History of Any Multi-Drug Resistant Organisms: None Reported Past Surgical History: Back Surgery, Bariatric Surgery, Bladder Surgery, Cardiac Valve Replacement, Orthopedic Surgery Additional Past Surgical History / Comment(s): L TKA, Left knee scope X 2, Right knee pinning, GASTRIC BAND SURGERY, aortic valve replacement with mechanical valve, repair of arterial aneurysm right radial arteryleft knee repl, bone marrow biopsy 07/07/23 Past Anesthesia/Blood Transfusion Reactions: Postoperative Nausea & Vomiting (PONV) Past Psychological History: No Psychological Hx Reported Smoking Status: Never smoker Past Alcohol Use History: None Reported Past Drug Use History: None Reported - Past Family History Mother Additional Family Medical History / Comment(s): B/L knee replacement. Father Family Medical History: Diabetes Mellitus Additional Family Medical History / Comment(s): Cardiac issues. General Exam - General Exam Comments Initial Comments: GENERAL: Patient is well-developed and well-nourished. Patient is nontoxic and well- hydrated and is in mild distress. ENT: Neck is soft and supple. No significant lymphadenopathy is noted. Oropharynx is clear. Moist mucous membranes. Neck has full range of motion without elic iting any pain. EYES: The sclera were anicteric and conjunctiva were pink and moist. Extraocular movements were intact and pupils were equal round and reactive to light. Eyelids were unremarkable. PULMONARY: Unlabored respirations. Good breath sounds bilaterally. No audible rales rhonchi or wheezing was noted. CARDIOVASCULAR: Patient's heart rate is 180 beats a minute ABDOMEN: Soft and nontender with normal bowel sounds. SKIN: Skin is clear with no lesions or rashes and otherwise unremarkable. NEUROLOGIC: Patient is alert and oriented x3. Cranial nerves II through XII are grossly intact. Motor and sensory are also intact. Normal speech, volume and content. Symmetrical smile. MUSCULOSKELETAL: Normal extremities with adequate strength and full range of motion. LYMPHATICS: No significant lymphadenopathy is noted PSYCHIATRIC: Normal psychiatric evaluation. Limitations: no limitations Course Vital Signs 01/05/24 01/05/24 18:57 20:00 Pulse Rate 176 H 103 H Respiratory 20 18 Rate Blood Pressure 112/97 108/88 O2 Sat by Pulse 98 98 Oximetry Medical Decision Making - Medical Decision Making EKG is interpreted by myself. EKG shows SVT at 171 bpm QRS is 86 QT interval is 238 QTc is 351. Patient's EKG shows no ST segment elevation. Patient does have some T wave inversions in the inferior leads as well as precordial leads V5 and V6 after adenosine was given a repeat EKG was done. EKG was interpreted by myself but EKG showed a sinus tachycardia at 105 bpm parables 176 QRS is 98 QT interval is 322 QTc is 383. Patient's EKG shows no ST segment ovation or depression. Was pt. sent in by a medical professional or institution ([facility], [facility], urgent care, hospital, or [facility]...) When possible be specific @ -No Did you speak to anyone other than the patient for history (EMS, parent, family, police, friend...)? What history was obtained from this source @ -No Did you review nursing and triage notes (agree or disagree)? Why? @ -I reviewed and agree with nursing and triage notes Were old charts reviewed (outside hosp., previous admission, EMS record, old EKG, old radiological studies, urgent care reports/EKG's, [facility] records)? Report findings @ -I reviewed the old chart to see what kind of medications patient needed on his prior visit to convert him back to normal sinus rhythm. Differential Diagnosis (chest pain, altered mental status, abdominal pain women, abdominal pain men, vaginal bleeding, weakness, fever, dyspnea, syncope, headache, dizziness, GI bleed, back pain, seizure, CVA, palpatations, mental health, musculoskeletal)? @ -Differential Palpitations Ventricular arrhythmias, atrial arrhythmias, myocardial infarction, anemia, thyrotoxicosis, electrolyte imbalance, hypokalemia, pulmonary embolism, pulmonary disease, drugs, alcohol, anxiety, stress.... This is not meant to be an all-inclusive list. EKG interpreted by me (3pts min.). @ -As above X-rays interpreted by me (1pt min.). @ -None done CT interpreted by me (1pt min.). @ -None done U/S interpreted by me (1pt. min.). @ -None done What testing was considered but not performed or refused? (CT, X-rays, U/S, labs)? Why? @ -None What meds were considered but not given or refused? Why? @ -None Did you discuss the management of the patient with other professionals (professionals i.e. , PA, [employer], lab, RT, psych nurse, psychiatric social worker, corporate lawyer, teacher, chief business officer, manager rn case)? Give summary @ -No Was smoking cessation discussed for >3mins.? @ -No Was critical care preformed (if so, how long)? @ -No Were there social determinants of health that impacted care today? How? (Homelessness, low income, unemployed, alcoholism, drug addiction, transportation, low edu. Level, literacy, decrease access to med. care, intermediate, rehab)? @ -No Was there de-escalation of care discussed even if they declined (Discuss DNR or withdrawal of care, Hospice)? DNR status @ -No What co-morbidities impacted this encounter? (DM, HTN, Smoking, COPD, CAD, Cancer, CVA, ARF, Chemo, Hep., AIDS, mental health diagnosis, sleep apnea, morbid obesity)? @ -None Was patient admitted / discharged? Hospital course, mention meds given and route, prescriptions, significant lab abnormalities, going to OR and other pertinent info. @ -Patient received 6 mg of adenosine with 2 flushes of normal saline. Patient converted back to normal sinus rhythm. After labs came back they were all within normal limits I went back and talked with the patient he felt much better patient will be taking 25 of his metoprolol in the morning instead of just 12.5. Undiagnosed new problem with uncertain prognosis? @ -No Drug Therapy requiring intensive monitoring for toxicity (Heparin, Nitro, Insulin, Cardizem)? @ -No Were any procedures done? @ -No Diagnosis/symptom? @ -SVT Acute, or Chronic, or Acute on Chronic? @ -Acute Uncomplicated (without systemic symptoms) or Complicated (systemic symptoms)? @ -Complicated Side effects of treatment? @ -No Exacerbation, Progression, or Severe Exacerbation? @ -No Poses a threat to life or bodily function? How? (Chest pain, [place], [place], pneumonia, PE, COPD, DKA, ARF, appy, cholecystitis, CVA, Diverticulitis, Homicidal, Suicidal, threat to staff... and all critical care pts) @ -Yes this can cause poor perfusion and endorgan dysfunction - Lab Data Result diagrams: 01/05/24 19:09 01/05/24 19:09 Lab Results 01/05/24 01/05/24 01/05/24 Range/Units 19:09 19:09 19:09 WBC 11.0 H (3.8-10.6) k/uL RBC 4.50 (4.30-5.90) m/uL Hgb 11.9 L (13.0-17.5) gm/dL Hct 38.8 L (39.0-53.0) % MCV 86.1 (80.0-100.0) fL MCH 26.6 (25.0-35.0) pg MCHC 30.8 L (31.0-37.0) g/dL RDW 14.6 (11.5-15.5) % Plt Count 303 (150-450) k/uL MPV 7.8 Neutrophils % 66 % Lymphocytes % 23 % Monocytes % 6 % Eosinophils % 3 % Basophils % 1 % Neutrophils # 7.3 (1.3-7.7) k/uL Lymphocytes # 2.5 (1.0-4.8) k/uL Monocytes # 0.7 (0-1.0) k/uL Eosinophils # 0.3 (0-0.7) k/uL Basophils # 0.1 (0-0.2) k/uL PT 28.5 H (10.0-12.5) sec INR 2.9 H (<1.2) APTT 49.2 H (22.0-30.0) sec Sodium 138 (137-145) mmol/L Potassium 3.9 (3.5-5.1) mmol/L Chloride 104 (98-107) mmol/L Carbon Dioxide 25 (22-30) mmol/L Anion Gap 9 mmol/L BUN 16 (9-20) mg/dL Creatinine 0.89 (0.66-1.25) mg/dL Est GFR (CKD-EPI)AfAm >90 (>60 ml/min/1.73 sqM) Est GFR (CKD-EPI)NonAf >90 (>60 ml/min/1.73 sqM) Glucose 146 H (74-99) mg/dL Calcium 8.8 (8.4-10.2) mg/dL Magnesium 1.9 (1.6-2.3) mg/dL Total Bilirubin 0.6 (0.2-1.3) mg/dL AST 20 (17-59) U/L ALT 10 (4-49) U/L Alkaline Phosphatase 133 H (38-126) U/L Troponin I (0.000-0.034) ng/mL Total Protein 8.1 (6.3-8.2) g/dL Albumin 3.9 (3.5-5.0) g/dL 01/05/24 Range/Units 19:09 WBC (3.8-10.6) k/uL RBC (4.30-5.90) m/uL Hgb (13.0-17.5) gm/dL Hct (39.0-53.0) % MCV (80.0-100.0) fL MCH (25.0-35.0) pg MCHC (31.0-37.0) g/dL RDW (11.5-15.5) % Plt Count (150-450) k/uL MPV Neutrophils % % Lymphocytes % % Monocytes % % Eosinophils % % Basophils % % Neutrophils # (1.3-7.7) k/uL Lymphocytes # (1.0-4.8) k/uL Monocytes # (0-1.0) k/uL Eosinophils # (0-0.7) k/uL Basophils # (0-0.2) k/uL PT (10.0-12.5) sec INR (<1.2) APTT (22.0-30.0) sec Sodium (137-145) mmol/L Potassium (3.5-5.1) mmol/L Chloride (98-107) mmol/L Carbon Dioxide (22-30) mmol/L Anion Gap mmol/L BUN (9-20) mg/dL Creatinine (0.66-1.25) mg/dL Est GFR (CKD-EPI)AfAm (>60 ml/min/1.73 sqM) Est GFR (CKD-EPI)NonAf (>60 ml/min/1.73 sqM) Glucose (74-99) mg/dL Calcium (8.4-10.2) mg/dL Magnesium (1.6-2.3) mg/dL Total Bilirubin (0.2-1.3) mg/dL AST (17-59) U/L ALT (4-49) U/L Alkaline Phosphatase (38-126) U/L Troponin I <0.012 (0.000-0.034) ng/mL Total Protein (6.3-8.2) g/dL Albumin (3.5-5.0) g/dL Critical Care Time Critical Care Time: Yes Total Critical Care Time: 35 Disposition Clinical Impression: Supraventricular tachycardia Disposition: HOME SELF-CARE Condition: Good Instructions (If sedation given, give patient instructions): Supraventricular Tachycardia (ED) Is patient prescribed a controlled substance at d/c from ED?: No Referrals: None,Stated [Primary Care Provider] - 1-2 days Time of Disposition: 20:13
[2024-01-05 20:41] VITALS: BP 108/88; PULSE 103; RESP 18
== END 2024-01-05 20:35 | disposition home or self-care (01) ==
LOC: EC 18:55
DX: I47.10 Supraventricular tachycardia, unspecified (principal); Z88.8 Allergy status to other drugs, medicaments and biological substances
CPT/HCPCS: 36415; 93005; 80053; 83735; 84484; 85025; 85610; 85730; 99291; 96374; J0153

== ENCOUNTER → 2024-01-25 | Outpatient (CLI) | payer MEDICAID, MEDICARE ==
[2024-01-25 14:15] VITALS: BP 120/77; PULSE 61; TEMP 98.1; BMI 34.7
--- NOTE | 2024-01-25 16:20 | P.BASOAP ---
Subjective Progress Note Date: 01/25/24 Principal diagnosis: Morbid obesity Patient returns for recheck. He is having knee surgery on March 03. They are going to remove the left knee joint. He feels decreased restriction. What ever was leading to his progressive weight loss has resolved. He continues to gain weight. Last visit he had 2 cc added for a total of 4.3 cc. He has band was loosened when he had 7.3 cc in the band and he had 5 cc removed. Patient would like more fluid added. No nausea vomiting. No heartburn. Objective - Vital Signs Vital signs: Vital Signs Temp 98.1 F 01/25/24 13:46 Pulse 61 01/25/24 13:46 Resp BP 120/77 01/25/24 13:46 Pulse Ox FiO2 Intake & Output 01/24/24 01/25/24 01/25/24 18:59 06:59 18:59 Weight 109.769 kg - Exam Abdomen: Soft, nontender, nondistended Assessment/Plan (1) Morbid obesity Narrative/Plan: 53-year-old male with increased weight and decreased restriction. Will add 1.5 cc to the band for a total of 5.8 cc. Follow-up if decreased restriction noted. The patient's lap band port was palpated. The site was aseptically prepped. The Chen needle was advanced into the port. A total of 1.5 ml of fluid was added. Pressure was held and a sterile dressing was applied. Plan: Date: 01/25/24 Initial Weight: 127.459 kg Initial BMI: 40.3 Current Weight: 109.769 kg Current BMI: 34.7 Type of Surgery: Total Volume in Band: 5.8 Previous Volume: Volume Removed: Volume Added: 1.5 Band Size:
== END ==
LOC: BARWHC3 13:15
PROVIDERS: ATTEND Surgery
DX: E66.01 Morbid (severe) obesity due to excess calories (principal); Z68.34 Body mass index [BMI] 34.0-34.9, adult; Z88.8 Allergy status to other drugs, medicaments and biological substances
CPT/HCPCS: 99211

== ENCOUNTER 2024-03-10 07:25 | Emergency (ER) | payer MEDICAID, MEDICARE ==
--- NOTE | 2024-03-10 08:27 | ED ---
General Adult HPI - General Chief complaint: Recheck/Abnormal Lab/Rx Stated complaint: Abn Labs Time Seen by Provider: 03/10/24 07:45 Source: patient, RN notes reviewed, old records reviewed Mode of arrival: wheelchair Limitations: no limitations - History of Present Illness Initial comments: This is a 53-year-old male who presents to the emergency department with a past history of knee surgery 1 week ago patient states when he was in the hospital he needed 1 unit of blood and since then he has been becoming more pale and he had blood drawn today and it was 6.1. 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 Patient states he is on antibiotics through a PICC line now but prior to surgery his hemoglobin was 10 and today it is 6.1 after he received blood prior to his discharge. Patient states he is feeling better he the thinks the wound looks fine. Patient denies any chest pain difficulty breathing. Patient denies any other symptoms patient states he was sweating last night but he is never taken his temperature. patient denies any pain in the knee. Patient after surgery went back on his Coumadin and Lovenox. Patient states he stopped Lovenox yesterday. Patient has a mechanical valve - Related Data Home Medications Medication Instructions Recorded Confirmed Ascorbic Acid [Vitamin C] 500 mg PO DAILY 03/02/17 03/10/24 Atorvastatin [Lipitor] 40 mg PO HS 03/02/17 03/10/24 Omeprazole 40 mg PO BID 03/02/17 03/10/24 Albuterol Inhaler [Ventolin Hfa 1 - 2 puff INHALATION RT-Q6H PRN 04/22/23 03/10/24 Inhaler] Metoprolol Tartrate [Lopressor] 25 mg PO BID 04/22/23 03/10/24 Cholecalciferol [Vitamin D3 (125 125 mcg PO DAILY 07/08/23 03/10/24 Mcg = 5000 Iu)] Cyanocobalamin (Vitamin B-12) 1,000 mcg PO DAILY 07/08/23 03/10/24 [Vitamin B-12] HYDROcodone/APAP 10-325MG [Thornton 1 tab PO Q4H PRN 07/08/23 03/10/24 10-325] Meloxicam [Mobic] 15 mg PO DAILY 07/08/23 03/10/24 Warfarin [Coumadin] 2.5 mg PO MOWEFRSA 07/08/23 03/10/24 Warfarin [Coumadin] 5 mg PO SUTUTH 07/08/23 03/10/24 Ferrous Sulfate [Feosol] 325 mg PO BID-W/MEALS 03/10/24 03/10/24 Magnesium Oxide [Mag-Ox] 400 mg PO DAILY 03/10/24 03/10/24 Ondansetron [Zofran] 4 mg PO Q8H PRN 03/10/24 03/10/24 Sennosides/Docusate Sodium 1 tab PO BID 03/10/24 03/10/24 [Senna-S 8.6-50 mg Tablet] methocarbamoL [Robaxin] 500 mg PO TID PRN 03/10/24 03/10/24 Allergies Allergy/AdvReac Type Severity Reaction Status Date / Time phenobarbital AdvReac Hyperactivi Verified 03/10/24 08:41 ty testosterone AdvReac Joint Pain Verified 03/10/24 08:41 with Injection only Review of Systems ROS Statement: Those systems with pertinent positive or pertinent negative responses have been documented in the HPI. ROS Other: All systems not noted in ROS Statement are negative. 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 CPAP use. Hx DVT right leg 2 yrs ago. Hx pneumonia a long time ago. "Poor memory." History of Any Multi-Drug Resistant Organisms: None Reported Past Surgical History: Back Surgery, Bariatric Surgery, Bladder Surgery, Cardiac Valve Replacement, Joint Replacement, Orthopedic Surgery Additional Past Surgical History / Comment(s): L TKA, Left knee scope X 2, Right knee pinning, GASTRIC BAND SURGERY, aortic valve replacement with mechanical valve, repair of arterial aneurysm right radial arteryleft knee repl, bone marrow biopsy 07/07/23 Past Anesthesia/Blood Transfusion Reactions: Postoperative Nausea & Vomiting (PONV) Past Psychological History: No Psychological Hx Reported Smoking Status: Never smoker Past Alcohol Use History: Occasional Past Drug Use History: None Reported - Past Family History Mother Additional Family Medical History / Comment(s): B/L knee replacement. Father Family Medical History: Diabetes Mellitus Additional Family Medical History / Comment(s): Cardiac issues. General Exam - General Exam Comments Initial Comments: GENERAL: Patient is well-developed and well-nourished. Patient is nontoxic and well- hydrated and is in mild distress. ENT: Neck is soft and supple. No significant lymphadenopathy is noted. Oropharynx is clear. Moist mucous membranes. Neck has full range of motion without eliciting any pain. EYES: The sclera were anicteric and conjunctiva were pink and moist. Extraocular movements were intact and pupils were equal round and reactive to light. Eyelids were unremarkable. PULMONARY: Unlabored respirations. Good breath sounds bilaterally. No audible rales rhonchi or wheezing was noted. CARDIOVASCULAR: There is a regular rate and rhythm without any murmurs gallops or rubs. ABDOMEN: Soft and nontender with normal bowel sounds. SKIN: Skin is clear with no lesions or rashes and otherwise unremarkable. NEUROLOGIC: Patient is alert and oriented x3. Cranial nerves II through XII are grossly intact. Motor and sensory are also intact. Normal speech, volume and content. Symmetrical smile. MUSCULOSKELETAL: Left leg has a knee immobilizer on at this time. Patient has ecchymosis to the lateral aspect of his left thigh down to the knee. LYMPHATICS: No significant lymphadenopathy is noted PSYCHIATRIC: Normal psychiatric evaluation. Limitations: no limitations Course Vital Signs 03/10/24 03/10/24 03/10/24 07:32 09:34 11:00 Temperature 99.4 F Pulse Rate 91 81 Respiratory 20 17 Rate Blood Pressure 100/62 109/58 113/59 O2 Sat by Pulse 100 98 Oximetry 03/10/24 03/10/24 03/10/24 11:14 11:24 11:44 Temperature 98.2 F 98.1 F 98.2 F Pulse Rate 82 83 Respiratory 17 17 18 Rate Blood Pressure 113/59 108/64 113/67 O2 Sat by Pulse 98 Oximetry 03/10/24 13:05 Temperature 98.2 F Pulse Rate 72 Respiratory 18 Rate Blood Pressure 112/65 O2 Sat by Pulse 100 Oximetry Medical Decision Making - Medical Decision Making Was pt. sent in by a medical professional or institution (, PA, CEILING INSTALLER, urgent care, hospital, or senior care...) When possible be specific @ -No Did you speak to anyone other than the patient for history (EMS, parent, family, police, friend...)? What history was obtained from this source @ -No Did you review nursing and triage notes (agree or disagree)? Why? @ -I reviewed and agree with nursing and triage notes Were old charts reviewed (outside hosp., previous admission, EMS record, old EKG, old radiological studies, urgent care reports/EKG's, senior care records)? Report findings @ -No old charts were reviewed Differential Diagnosis (chest pain, altered mental status, abdominal pain women, abdominal pain men, vaginal bleeding, weakness, fever, dyspnea, syncope, headache, dizziness, GI bleed, back pain, seizure, CVA, palpatations, mental health, musculoskeletal)? @ -GI bleed, postsurgical bleeding, MDS, kidney dysfunction, coagulopathy, this is not an all-inclusive list EKG interpreted by me (3pts min.). @ -As above X-rays interpreted by me (1pt min.). @ -None done CT interpreted by me (1pt min.). @ -None done U/S interpreted by me (1pt. min.). @ -None done What testing was considered but not performed or refused? (CT, X-rays, U/S, labs)? Why? @ -None What meds were considered but not given or refused? Why? @ -None Did you discuss the management of the patient with other professionals (professionals i.e. , PA, CEILING INSTALLER, lab, RT, psych nurse, mental health social worker, data center technician, teacher, chief communications officer, casework supervisor)? Give summary @ -I spoke with Dr. Willis and he agreed to admit the patient Was smoking cessation discussed for >3mins.? @ -No Was critical care preformed (if so, how long)? @ -No Were there social determinants of health that impacted care today? How? (Homelessness, low income, unemployed, alcoholism, drug addiction, transportation, low edu. Level, literacy, decrease access to med. care, senior care, rehab)? @ -No Was there de-escalation of care discussed even if they declined (Discuss DNR or withdrawal of care, Hospice)? DNR status @ -No What co-morbidities impacted this encounter? (DM, HTN, Smoking, COPD, CAD, Cancer, CVA, ARF, Chemo, Hep., AIDS, mental health diagnosis, sleep apnea, morbid obesity)? @ -None Was patient admitted / discharged? Hospital course, mention meds given and route, prescriptions, significant lab abnormalities, going to OR and other pertinent info. @ -The patient's hemoglobin was 5.6 I ordered 1 unit of packed red blood cells admitted the patient to Dr. Willis. After admitting the patient to our facility Dr. Willis determined that the patient was not part of his service so he called [facility] hospitalist who then went down and talk to the patient and the patient had contacted his surgeon and the surgeon wanted him transferred to [facility] I was not made aware of this for couple of hours but when I was I set up arrangements to transfer the patient to [facility]. Dr. Siu excepted the patient for an ER to ER transfer. Undiagnosed new problem with uncertain prognosis? @ -No Drug Therapy requiring intensive monitoring for toxicity (Heparin, Nitro, Insulin, Cardizem)? @ -No Were any procedures done? @ -No Diagnosis/symptom? @ -Anemia Acute, or Chronic, or Acute on Chronic? @ -Acute Uncomplicated (without systemic symptoms) or Complicated (systemic symptoms)? @ -Complicated Side effects of treatment? @ -No Exacerbation, Progression, or Severe Exacerbation? @ -No Poses a threat to life or bodily function? How? (Chest pain, USA, NM, pneumonia, PE, COPD, DKA, ARF, appy, cholecystitis, CVA, Diverticulitis, Homicidal, Suicidal, threat to staff... and all critical care pts) @ -Yes this could lead to significant loss of perfusion and endorgan dysfunction - Lab Data Result diagrams: 03/10/24 08:16 03/10/24 08:16 Lab Results 03/10/24 03/10/24 03/10/24 Range/Units 08:16 08:16 08:16 WBC 6.5 (3.8-10.6) k/uL RBC 2.11 L (4.30-5.90) m/uL Hgb 5.6 L* (13.0-17.5) gm/dL Hct 18.1 L* (39.0-53.0) % MCV 86.0 (80.0-100.0) fL MCH 26.6 (25.0-35.0) pg MCHC 30.9 L (31.0-37.0) g/dL RDW 18.5 H (11.5-15.5) % Plt Count 246 (150-450) k/uL MPV 8.1 Neutrophils % 70 % Lymphocytes % 16 % Monocytes % 8 % Eosinophils % 4 % Basophils % 1 % Neutrophils # 4.5 (1.3-7.7) k/uL Lymphocytes # 1.1 (1.0-4.8) k/uL Monocytes # 0.5 (0-1.0) k/uL Eosinophils # 0.2 (0-0.7) k/uL Basophils # 0.0 (0-0.2) k/uL Hypochromasia Slight Poikilocytosis Slight Anisocytosis Slight PT (10.0-12.5) sec INR (<1.2) APTT (22.0-30.0) sec Sodium 135 L (137-145) mmol/L Potassium 3.8 (3.5-5.1) mmol/L Chloride 103 (98-107) mmol/L Carbon Dioxide 30 (22-30) mmol/L Anion Gap 2 mmol/L BUN 17 (9-20) mg/dL Creatinine 0.62 L (0.66-1.25) mg/dL Est GFR (CKD-EPI)AfAm >90 (>60 ml/min/1.73 sqM) Est GFR (CKD-EPI)NonAf >90 (>60 ml/min/1.73 sqM) Glucose 108 H (74-99) mg/dL Plasma Lactic Acid Fareed 1.2 (0.7-2.0) mmol/L Calcium 8.2 L (8.4-10.2) mg/dL Total Bilirubin 1.2 (0.2-1.3) mg/dL AST 18 (17-59) U/L ALT 8 (4-49) U/L Alkaline Phosphatase 161 H (38-126) U/L Total Protein 6.0 L (6.3-8.2) g/dL Albumin 3.0 L (3.5-5.0) g/dL Blood Type Blood Type Confirm Blood Type Recheck Bld Type Recheck Status Antibody Screen Crossmatch Spec Expiration Date 03/10/24 03/10/24 03/10/24 Range/Units 08:57 08:57 09:23 WBC (3.8-10.6) k/uL RBC (4.30-5.90) m/uL Hgb (13.0-17.5) gm/dL Hct (39.0-53.0) % MCV (80.0-100.0) fL MCH (25.0-35.0) pg MCHC (31.0-37.0) g/dL RDW (11.5-15.5) % Plt Count (150-450) k/uL MPV Neutrophils % % Lymphocytes % % Monocytes % % Eosinophils % % Basophils % % Neutrophils # (1.3-7.7) k/uL Lymphocytes # (1.0-4.8) k/uL Monocytes # (0-1.0) k/uL Eosinophils # (0-0.7) k/uL Basophils # (0-0.2) k/uL Hypochromasia Poikilocytosis Anisocytosis PT 26.4 H (10.0-12.5) sec INR 2.7 H (<1.2) APTT 48.4 H (22.0-30.0) sec Sodium (137-145) mmol/L Potassium (3.5-5.1) mmol/L Chloride (98-107) mmol/L Carbon Dioxide (22-30) mmol/L Anion Gap mmol/L BUN (9-20) mg/dL Creatinine (0.66-1.25) mg/dL Est GFR (CKD-EPI)AfAm (>60 ml/min/1.73 sqM) Est GFR (CKD-EPI)NonAf (>60 ml/min/1.73 sqM) Glucose (74-99) mg/dL Plasma Lactic Acid Fareed (0.7-2.0) mmol/L Calcium (8.4-10.2) mg/dL Total Bilirubin (0.2-1.3) mg/dL AST (17-59) U/L ALT (4-49) U/L Alkaline Phosphatase (38-126) U/L Total Protein (6.3-8.2) g/dL Albumin (3.5-5.0) g/dL Blood Type A Positive Blood Type Confirm A Positive Blood Type Recheck No Previous Record Bld Type Recheck Status CABO Indicated Antibody Screen NEGATIVE Crossmatch See Detail Spec Expiration Date 03/13/20242023 Critical Care Time Critical Care Time: Yes Total Critical Care Time: 35 Disposition Clinical Impression: Anemia, Hematoma of leg Disposition: OTHER INSTITUTION NOT DEFINED Time of Disposition: 09:24 - Out of Hospital Transfer - Req. Specs Out of Hospital Transfer - Requested Specifics: Other [facility] ([facility]
[2024-03-10 08:41] LABS: Anisocytosis Slight; Basophils % (A) 1 %; Eosinophils # (A) 0.2 k/uL (0-0.7); Eosinophils % (A) 4 %; Hypochromasia Slight; Lymphocytes # (A) 1.1 k/uL (1.0-4.8); Lymphocytes % (A) 16 %; MCH 26.6 pg (25.0-35.0); MCHC 30.9 g/dL (31.0-37.0); Mean Platelet Volume 8.1; Monocytes # (A) 0.5 k/uL (0-1.0); Monocytes % (A) 8 %; Neutrophils # (A) 4.5 k/uL (1.3-7.7); Neutrophils % (A) 70 %; Platelet Count 246 k/uL (150-450); Poikilocytosis Slight; RBC 2.11 m/uL (4.30-5.90); RDW 18.5 % (11.5-15.5); WBC 6.5 k/uL (3.8-10.6)
[2024-03-10 08:43] LABS: HGB 5.6 gm/dL (13.0-17.5)
[2024-03-10 08:44] LABS: HCT 18.1 % (39.0-53.0)
[2024-03-10 08:51] LABS: ALT 8 U/L (4-49); AST 18 U/L (17-59); African American GFR (CKD) >90 (>60 ml/min/1.73 sqM); Alkaline Phosphatase 161 U/L (38-126); Anion Gap 2 mmol/L; Blood Urea Nitrogen 17 mg/dL (9-20); Calcium 8.2 mg/dL (8.4-10.2); Carbon Dioxide 30 mmol/L (22-30); Chloride 103 mmol/L (98-107); Glucose 108 mg/dL (74-99); Non-African American GFR(CKD) >90 (>60 ml/min/1.73 sqM); Potassium 3.8 mmol/L (3.5-5.1); Sodium 135 mmol/L (137-145); Total Bilirubin 1.2 mg/dL (0.2-1.3)
[2024-03-10 09:36] LABS: INR 2.7 (<1.2); Partial Thromboplastin Time 48.4 sec (22.0-30.0); Prothrombin Time 26.4 sec (10.0-12.5)
[2024-03-10 11:58] VITALS: TEMP 98.2
[2024-03-10] MEDS ORDERED: HYDROcodone/APAP 10-325MG 1 EACH TAB PO PRN (12:29)
[2024-03-10] MEDS ORDERED: ONDANSETRON 4 MG TAB PO PRN (12:29)
[2024-03-10] MEDS ORDERED: methocarbamoL 500 MG TAB PO PRN (12:29)
[2024-03-10 15:10] VITALS: BP 112/63; PULSE 81; RESP 17
[2024-03-10] MEDS ORDERED: FERROUS SULFATE 325 MG TAB PO SCH (17:30)
[2024-03-10] MEDS ORDERED: PANTOPRAZOLE 40 MG TABLET PO SCH (17:30)
[2024-03-10] MEDS ORDERED: SENNOSIDES-DOCUSATE SODIUM 1 EACH TAB PO SCH (21:00)
[2024-03-10] MEDS ORDERED: ATORVASTATIN 40 MG TAB PO SCH (21:00)
[2024-03-10] MEDS ORDERED: METOPROLOL TARTRATE 25 MG TAB PO SCH (21:00)
[2024-03-11] MEDS ORDERED: CYANOCOBALAMIN 500 MCG TAB PO SCH (09:00)
[2024-03-11] MEDS ORDERED: ASCORBIC ACID 500 MG TAB PO SCH (09:00)
[2024-03-11] MEDS ORDERED: CHOLECALCIFEROL 125 MCG (5000 IU) TABLET PO SCH (09:00)
[2024-03-11] MEDS ORDERED: MAGNESIUM OXIDE 400 MG TAB PO SCH (09:00)
== END 2024-03-10 15:21 | disposition other institution (70) ==
LOC: EC 07:25 → 3SCARD 09:25 → UNDOADMIN 09:25 → EC 15:21
DX: M79.81 Nontraumatic hematoma of soft tissue (principal); D64.9 Anemia, unspecified; Z88.8 Allergy status to other drugs, medicaments and biological substances
CPT/HCPCS: 36430 ×2; 99285 ×2; 36415; 86900; 86901; 80053; 83605; 85025; 85610; 85730; 86850; 86920; P9016

== ENCOUNTER 2024-05-02 15:02 | Emergency (ER) | payer MEDICAID, MEDICARE ==
--- NOTE | 2024-05-02 15:29 | ED ---
General Adult HPI - General Chief complaint: Recheck/Abnormal Lab/Rx Stated complaint: Abnormal Labs Time Seen by Provider: 05/02/24 15:28 Source: patient Mode of arrival: wheelchair Limitations: no limitations - History of Present Illness Initial comments: Patient presents to the ED with his for evaluation. Patient states that he is being treated with antibiotics for an infected left knee replacement for the past several weeks, and he recently had his antibiotics changed to Bactrim DS. Patient states that his INR levels have been increasing since he was started on Bactrim DS. Patient states that he had a level of 3.6 a few days ago, and his level was 8 yesterday, so he was sent to the ED by his PCP for further evaluation. Patient denies any change in his warfarin dosing (he states that he takes 5 mg once a day 3 days a week, and 2.5 mg once a day the other 4 days of the week). Patient also denies any recent change in his diet. Patient denies any bleeding that he is aware of. Patient denies increased bruising, trauma or injury, headache, focal neuro deficit, chest pain, dyspnea, palpitations, dizziness, abdominal pain, nausea or vomiting, bloody or melanotic stool, dysuria/hematuria/urinary symptoms, or any other symptoms or complaints. Patient states that he is on warfarin due to having a mechanical aortic valve, and he states that he has been on it for the past several years. - Related Data Home Medications Medication Instructions Recorded Confirmed Ascorbic Acid [Vitamin C] 500 mg PO DAILY 03/02/17 05/02/24 Omeprazole 40 mg PO BID 03/02/17 05/02/24 Albuterol Inhaler [Ventolin Hfa 1 - 2 puff INHALATION RT-Q6H PRN 04/22/23 05/02/24 Inhaler] Metoprolol Tartrate [Lopressor] 12.5 mg PO BID 04/22/23 05/02/24 Cholecalciferol [Vitamin D3 (125 125 mcg PO DAILY 07/08/23 05/02/24 Mcg = 5000 Iu)] Cyanocobalamin (Vitamin B-12) 1,000 mcg PO DAILY 07/08/23 05/02/24 [Vitamin B-12] HYDROcodone/APAP 10-325MG [[place] 1 tab PO Q4H PRN 07/08/23 05/02/24 10-325] Meloxicam [Mobic] 15 mg PO DAILY 07/08/23 05/02/24 Warfarin [Coumadin] 2.5 mg PO MOWEFRSA@209907/08/23 05/02/24 Warfarin [Coumadin] 5 mg PO SUTUTH@2100 07/08/23 05/02/24 Furosemide [Lasix] 20 mg PO DAILY 05/02/24 05/02/24 Potassium Chloride [Klor-Con 10 ER] 20 meq PO DAILY 05/02/24 05/02/24 Sulfamethox-Tmp 800-160Mg [Bactrim 2 tab PO BID 05/02/24 05/02/24 DS 800-160 mg] Allergies Allergy/AdvReac Type Severity Reaction Status Date / Time Cephalosporins Allergy Unknown Verified 05/02/24 17:33 phenobarbital AdvReac Hyperactivi Verified 05/02/24 17:33 ty testosterone AdvReac Joint Pain Verified 05/02/24 17:33 with Injection only Review of Systems ROS Statement: Those systems with pertinent positive or pertinent negative responses have been documented in the HPI. ROS Other: All systems not noted in ROS Statement are negative. 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 CPAP use. Hx DVT right leg 2 yrs ago. Hx pneumonia a long time ago. "Poor memory." History of Any Multi-Drug Resistant Organisms: None Reported Past Surgical History: Back Surgery, Bariatric Surgery, Bladder Surgery, Cardiac Valve Replacement, Joint Replacement, Orthopedic Surgery Additional Past Surgical History / Comment(s): L TKA, Left knee scope X 2, Right knee pinning, GASTRIC BAND SURGERY, aortic valve replacement with mechanical valve, repair of arterial aneurysm right radial arteryleft knee repl, bone marrow biopsy 07/07/23 Past Anesthesia/Blood Transfusion Reactions: Postoperative Nausea & Vomiting (PONV) Past Psychological History: No Psychological Hx Reported Smoking Status: Never smoker Past Alcohol Use History: Occasional Past Drug Use History: None Reported - Past Family History Mother Additional Family Medical History / Comment(s): B/L knee replacement. Father Family Medical History: Diabetes Mellitus Additional Family Medical History / Comment(s): Cardiac issues. General Exam Limitations: no limitations General appearance: alert, in no apparent distress Head exam: Present: atraumatic Eye exam: Present: normal appearance ENT exam: Present: mucous membranes moist Respiratory exam: Present: normal lung sounds bilaterally. Absent: respiratory distress, wheezes, rales, rhonchi, stridor Cardiovascular Exam: Present: regular rate, normal rhythm, normal heart sounds, other (Normal radial pulses bilaterally) GI/Abdominal exam: Present: soft. Absent: distended, tenderness, guarding Extremities exam: Present: other (Left knee with drain in place). Absent: pedal edema, calf tenderness Neurological exam: Present: alert, oriented X3 Psychiatric exam: Present: normal affect Skin exam: Present: warm, dry, intact, normal color Course Vital Signs 05/02/24 05/02/24 15:13 16:45 Temperature 97.9 F Pulse Rate 62 60 Respiratory 16 16 Rate Blood Pressure 98/52 105/66 O2 Sat by Pulse 99 99 Oximetry Medical Decision Making - Medical Decision Making Was pt. sent in by a medical professional or institution (, PA, RN BUILDING, urgent care, hospital, or [place] [facility] facility...) When possible be specific @ -No Did you speak to anyone other than the patient for history (EMS, parent, family, police, friend...)? What history was obtained from this source @ -No Did you review nursing and triage notes (agree or disagree)? Why? @ -I reviewed and agree with nursing and triage notes Were old charts reviewed (outside hosp., previous admission, EMS record, old EKG, old radiological studies, urgent care reports/EKG's, [place] health [facility] facility records)? Report findings @ -No old charts were reviewed Differential Diagnosis (chest pain, altered mental status, abdominal pain women, abdominal pain men, vaginal bleeding, weakness, fever, dyspnea, syncope, headache, dizziness, GI bleed, back pain, seizure, CVA, palpatations, mental health, musculoskeletal)? @ -Supratherapeutic INR, coagulopathy, hemorrhage, anemia, medication reaction, medication interaction EKG interpreted by me (3pts min.). @ -None done X-rays interpreted by me (1pt min.). @ -None done CT interpreted by me (1pt min.). @ -None done U/S interpreted by me (1pt. min.). @ -None done What testing was considered but not performed or refused? (CT, X-rays, U/S, labs)? Why? @ -None What meds were considered but not given or refused? Why? @ -None Did you discuss the management of the patient with other professionals (professionals i.e. , PA, RN BUILDING, lab, RT, psych nurse, psychosocial rehabilitation counselor, senior director, teacher, sergeant of officers, immigration case manager)? Give summary @ -No Was smoking cessation discussed for >3mins.? @ -No Was critical care preformed (if so, how long)? @ -No Were there social determinants of health that impacted care today? How? (Homelessness, low income, unemployed, alcoholism, drug addiction, hayes sportation, low edu. Level, literacy, decrease access to med. care, [facility], rehab)? @ -No Was there de-escalation of care discussed even if they declined (Discuss DNR or withdrawal of care, Hospice)? DNR status @ -No What co-morbidities impacted this encounter? (DM, HTN, Smoking, COPD, CAD, Cancer, CVA, ARF, Chemo, Hep., AIDS, mental health diagnosis, sleep apnea, morbid obesity)? @ -None Was patient admitted / discharged? Hospital course, mention meds given and route, prescriptions, significant lab abnormalities, going to OR and other pertinent info. @ -Patient's INR is slightly lower today at 7.2 then his level yesterday, but it is still quite elevated. Patient denies having any bleeding or bruising. Patient's hemoglobin and vital signs are stable. Patient is noted to have mild renal insufficiency for which he has been hydrated with IV fluids in the ED. Patient has been instructed to hold his warfarin today and tomorrow and to contact his primary care provider to have a repeat INR and renal function labs performed tomorrow or the following day. Patient agrees to do so. Patient was also instructed to return to the ED should he develop any signs of bleeding or any significant pain. Will discharge patient home at this time. Patient was counseled about renal insufficiency and supratherapeutic INR. He was clearly explained return and follow-up instructions. He feels comfortable with this plan. Undiagnosed new problem with uncertain prognosis? @ -No Drug Therapy requiring intensive monitoring for toxicity (Heparin, Nitro, Insulin, Cardizem)? @ -No Were any procedures done? @ -No Diagnosis/symptom? @ -Supratherapeutic INR Acute, or Chronic, or Acute on Chronic? @ -Acute Uncomplicated (without systemic symptoms) or Complicated (systemic symptoms)? @ -Uncomplicated Side effects of treatment? @ -No Exacerbation, Progression, or Severe Exacerbation? @ -No Poses a threat to life or bodily function? How? (Chest pain, [place], [place], pneumonia, PE, COPD, DKA, ARF, appy, cholecystitis, CVA, Diverticulitis, Homicidal, Suicidal, threat to staff... and all critical care pts) @ -No Diagnosis/symptom? @ -Renal insufficiency Acute, or Chronic, or Acute on Chronic? @ -Acute Uncomplicated (without systemic symptoms) or Complicated (systemic symptoms)? @ -Default Side effects of treatment? @ -None Exacerbation, Progression, or Severe Exacerbation] @ -No Poses a threat to life or bodily function? @ -No - Lab Data Result diagrams: 05/02/24 15:36 05/02/24 15:36 Lab Results 05/02/24 05/02/24 05/02/24 Range/Units 15:36 15:36 15:36 WBC 6.9 (3.8-10.6) k/uL RBC 3.36 L (4.30-5.90) m/uL Hgb 10.1 L (13.0-17.5) gm/dL Hct 30.8 L (39.0-53.0) % MCV 91.5 (80.0-100.0) fL MCH 30.0 (25.0-35.0) pg MCHC 32.8 (31.0-37.0) g/dL RDW 15.5 (11.5-15.5) % Plt Count 336 (150-450) k/uL MPV 7.8 Neutrophils % 65 % Lymphocytes % 23 % Monocytes % 6 % Eosinophils % 4 % Basophils % 1 % Neutrophils # 4.5 (1.3-7.7) k/uL Lymphocytes # 1.6 (1.0-4.8) k/uL Monocytes # 0.4 (0-1.0) k/uL Eosinophils # 0.3 (0-0.7) k/uL Basophils # 0.0 (0-0.2) k/uL Hypochromasia Slight PT 70.8 H (10.0-12.5) sec INR 7.2 H* (<1.2) APTT 76.9 H (22.0-30.0) sec Sodium 134 L (137-145) mmol/L Potassium 5.4 H (3.5-5.1) mmol/L Chloride 105 (98-107) mmol/L Carbon Dioxide 18 L (22-30) mmol/L Anion Gap 11 mmol/L BUN 28 H (9-20) mg/dL Creatinine 1.77 H (0.66-1.25) mg/dL Est GFR (CKD-EPI)AfAm 49 (>60 ml/min/1.73 sqM) Est GFR (CKD-EPI)NonAf 43 (>60 ml/min/1.73 sqM) Glucose 98 (74-99) mg/dL Calcium 8.6 (8.4-10.2) mg/dL Total Bilirubin 0.9 (0.2-1.3) mg/dL AST 21 (17-59) U/L ALT 8 (4-49) U/L Alkaline Phosphatase 97 (38-126) U/L Total Protein 6.6 (6.3-8.2) g/dL Albumin 3.6 (3.5-5.0) g/dL Disposition Clinical Impression: Supratherapeutic INR, Renal insufficiency Disposition: HOME SELF-CARE Condition: Stable Instructions (If sedation given, give patient instructions): Acute Kidney Injury (DC), Elevated INR (ED) Additional Instructions: Return to the ER immediately should you develop any bleeding, any significant pain, a headache, feeling dizzy or faint, shortness of breath, or new or worsening symptoms. Follow-up closely with your primary care provider (call tomorrow for repeat labs to be ordered and to schedule a follow-up appointment). Is patient prescribed a controlled substance at d/c from ED?: No Referrals: Bar Bender DO [Primary Care Provider] - 1-2 days Time of Disposition: 17:57
[2024-05-02 15:45] LABS: Basophils % (A) 1 %; Eosinophils # (A) 0.3 k/uL (0-0.7); Eosinophils % (A) 4 %; HCT 30.8 % (39.0-53.0); HGB 10.1 gm/dL (13.0-17.5); Hypochromasia Slight; Lymphocytes # (A) 1.6 k/uL (1.0-4.8); Lymphocytes % (A) 23 %; MCHC 32.8 g/dL (31.0-37.0); MCV 91.5 fL (80.0-100.0); Mean Platelet Volume 7.8; Monocytes # (A) 0.4 k/uL (0-1.0); Monocytes % (A) 6 %; Neutrophils # (A) 4.5 k/uL (1.3-7.7); Neutrophils % (A) 65 %; Platelet Count 336 k/uL (150-450); RBC 3.36 m/uL (4.30-5.90); RDW 15.5 % (11.5-15.5); WBC 6.9 k/uL (3.8-10.6)
[2024-05-02 16:17] LABS: ALT 8 U/L (4-49); AST 21 U/L (17-59); African American GFR (CKD) 49 (>60 ml/min/1.73 sqM); Albumin 3.6 g/dL (3.5-5.0); Alkaline Phosphatase 97 U/L (38-126); Anion Gap 11 mmol/L; Blood Urea Nitrogen 28 mg/dL (9-20); Calcium 8.6 mg/dL (8.4-10.2); Carbon Dioxide 18 mmol/L (22-30); Chloride 105 mmol/L (98-107); Glucose 98 mg/dL (74-99); Non-African American GFR(CKD) 43 (>60 ml/min/1.73 sqM); Potassium 5.4 mmol/L (3.5-5.1); Sodium 134 mmol/L (137-145); Total Bilirubin 0.9 mg/dL (0.2-1.3); Total Protein 6.6 g/dL (6.3-8.2)
[2024-05-02 16:33] LABS: Prothrombin Time 70.8 sec (10.0-12.5)
[2024-05-02 16:34] LABS: INR 7.2 (<1.2); Partial Thromboplastin Time 76.9 sec (22.0-30.0)
[2024-05-02] MEDS: SODIUM CHLORIDE 0.9% 500 ML 500 ML IV ONE (17:24)
[2024-05-02 18:21] VITALS: BP 111/78; PULSE 70; RESP 18; TEMP 98.1
== END 2024-05-02 18:16 | disposition home or self-care (01) ==
LOC: EC 15:02
DX: R79.1 Abnormal coagulation profile (principal); N28.9 Disorder of kidney and ureter, unspecified; Z88.1 Allergy status to other antibiotic agents; Z88.8 Allergy status to other drugs, medicaments and biological substances
CPT/HCPCS: 36415; 80053; 85025; 85610; 85730; 99283

== ENCOUNTER 2024-06-28 04:00 | Emergency (ER) | payer MEDICARE, MEDICAID ==
[2024-06-28 04:09] VITALS: RESP 18
--- NOTE | 2024-06-28 04:41 | ED ---
General Adult HPI - General Chief complaint: Extremity Injury, Lower Stated complaint: Knee Pain Time Seen by Provider: 06/28/24 04:02 Source: patient, RN notes reviewed, old records reviewed Mode of arrival: EMS Limitations: no limitations - History of Present Illness Initial comments: 54-year-old male presents for evaluation of left knee pain. Patient has significant medical history surrounding this knee. He had a infected total knee which required prolonged IV antibiotics and subsequently resulted in removal with intramedullary yvonne and cement spacer. Patient has no movement at the knee. He does follow with wound care and states that he had his wound VAC removed approximately 1 week ago. He denies fever. He states he was sitting in chair, shifted and felt immediate pain in the center of his left knee. - Related Data Home Medications Medication Instructions Recorded Confirmed Ascorbic Acid [Vitamin C] 500 mg PO DAILY 03/02/17 05/02/24 Omeprazole 40 mg PO BID 03/02/17 05/02/24 Albuterol Inhaler [Ventolin Hfa 1 - 2 puff INHALATION RT-Q6H PRN 04/22/23 05/02/24 Inhaler] Metoprolol Tartrate [Lopressor] 12.5 mg PO BID 04/22/23 05/02/24 Cholecalciferol [Vitamin D3 (125 125 mcg PO DAILY 07/08/23 05/02/24 Mcg = 5000 Iu)] Cyanocobalamin (Vitamin B-12) 1,000 mcg PO DAILY 07/08/23 05/02/24 [Vitamin B-12] HYDROcodone/APAP 10-325MG [[place] 1 tab PO Q4H PRN 07/08/23 05/02/24 10-325] Meloxicam [Mobic] 15 mg PO DAILY 07/08/23 05/02/24 Warfarin [Coumadin] 2.5 mg PO MOWEFRSA@2100 07/08/23 05/02/24 Warfarin [Coumadin] 5 mg PO SUTUTH@2100 07/08/23 05/02/24 Furosemide [Lasix] 20 mg PO DAILY 05/02/24 05/02/24 Potassium Chloride [Klor-Con 10 ER] 20 meq PO DAILY 05/02/24 05/02/24 Sulfamethox-Tmp 800-160Mg [Bactrim 2 tab PO BID 05/02/24 05/02/24 DS 800-160 mg] Allergies Allergy/AdvReac Type Severity Reaction Status Date / Time Cephalosporins Allergy Unknown Verified 05/02/24 17:33 phenobarbital AdvReac Hyperactivi Verified 05/02/24 17:33 ty testosterone AdvReac Joint Pain Verified 05/02/24 17:33 with Injection only Review of Systems ROS Statement: Those systems with pertinent positive or pertinent negative responses have been documented in the HPI. ROS Other: All systems not noted in ROS Statement are negative. 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 CPAP use. Hx DVT right leg 2 yrs ago. Hx pneumonia a long time ago. "Poor memory." History of Any Multi-Drug Resistant Organisms: None Reported Past Surgical History: Back Surgery, Bariatric Surgery, Bladder Surgery, Cardiac Valve Replacement, Joint Replacement, Orthopedic Surgery Additional Past Surgical History / Comment(s): L TKA, Left knee scope X 2, Right knee pinning, GASTRIC BAND SURGERY, aortic valve replacement with mechanical valve, repair of arterial aneurysm right radial arteryleft knee repl, bone marrow biopsy 07/07/23 Past Anesthesia/Blood Transfusion Reactions: Postoperative Nausea & Vomiting (PONV) Past Psychological History: No Psychological Hx Reported Smoking Status: Never smoker Past Alcohol Use History: Occasional Past Drug Use History: None Reported - Past Family History Mother Additional Family Medical History / Comment(s): B/L knee replacement. Father Family Medical History: Diabetes Mellitus Additional Family Medical History / Comment(s): Cardiac issues. General Exam Limitations: no limitations General appearance: alert, in no apparent distress Head exam: Present: atraumatic, normocephalic Eye exam: Present: normal appearance, PERRL ENT exam: Present: normal exam Respiratory exam: Present: normal lung sounds bilaterally. Absent: respiratory distress, wheezes Cardiovascular Exam: Present: regular rate, normal rhythm, systolic murmur GI/Abdominal exam: Absent: distended Extremities exam: Present: other (Fixed nonmobile left knee with appropriately healing open wounds. No purulence. There is mild surrounding erythema. Distal pulses are intact, no calf tenderness.) Psychiatric exam: Present: normal affect, normal mood Skin exam: Present: warm, dry. Absent: cyanosis, diaphoretic Course Vital Signs 06/28/24 06/28/24 06/28/24 04:06 05:10 05:54 Temperature 100.5 F H 101.2 F H 101.2 F H Pulse Rate 87 91 Respiratory 18 18 Rate Blood Pressure 122/67 118/71 O2 Sat by Pulse 97 98 Oximetry Medical Decision Making - Medical Decision Making Was pt. sent in by a medical professional or institution (, PRINCE, POULTICE MACHINE OPERATOR, urgent care, hospital, or [facility]...) When possible be specific @ -No Did you speak to anyone other than the patient for history (EMS, parent, family, police, friend...)? What history was obtained from this source @ -No Did you review nursing and triage notes (agree or disagree)? Why? @ -I reviewed and agree with nursing and triage notes Were old charts reviewed (outside hosp., previous admission, EMS record, old EKG, old radiological studies, urgent care reports/EKG's, [facility] records)? Report findings @ -No old charts were reviewed Differential Musculoskeletal Muscular strain, contusion, ligament sprain, fracture, arthritis, septic arthritis, bursitis, cellulitis, muscle spasm, nerve compression, DVT, arterial occlusion, herpes zoster, electrolyte abnormality, tumor.... This is not meant to be in all inclusive list EKG interpreted by me (3pts min.). @ -As above X-rays interpreted by me (1pt min.). @X-ray of the left knee, shows postoperative changes with intramedullary yvonne and joint spacer without acute fracture CT interpreted by me (1pt min.). @ -None done U/S interpreted by me (1pt. min.). @ -None done What testing was considered but not performed or refused? (CT, X-rays, U/S, labs)? Why? @ -None What meds were considered but not given or refused? Why? @ -None Did you discuss the management of the patient with other professionals (professionals i.e. PRINCE Schilling, POULTICE MACHINE OPERATOR, lab, RT, psych nurse, director of social services, plate worker, teacher, staff submarine warfare officer, child welfare caseworker)? Give summary @ -No Was smoking cessation discussed for >3mins.? @ -No Was critical care preformed (if so, how long)? @ -No Were there social determinants of health that impacted care today? How? (Homelessness, low income, unemployed, alcoholism, drug addiction, transportation, low edu. Level, literacy, decrease access to med. care, half-way, rehab)? @ -No Was there de-escalation of care discussed even if they declined (Discuss DNR or withdrawal of care, Hospice)? DNR status @ -No What co-morbidities impacted this encounter? (DM, HTN, Smoking, COPD, CAD, Cancer, CVA, ARF, Chemo, Hep., AIDS, mental health diagnosis, sleep apnea, mor bid obesity)? @ -[Mechanical heart valve, history of chronic left knee infection and nonhealing wound Was patient admitted / discharged? Hospital course, mention meds given and route, prescriptions, significant lab abnormalities, going to OR and other pertinent info. @54-year-old male presenting with left knee pain with movement. Patient felt sudden sharp pain in the middle of his left knee when shifting position. X-rays negative for displaced fracture or obvious complication of the intramedullary yvonne. Patient does have low-grade fever and it is recommended that he contact his surgeon at [facility] with both his acute issue and informed him of the fever. Patient had laboratory testing performed 1 week ago which showed normal white count, negative ESR and CRP. Undiagnosed new problem with uncertain prognosis? @ -No Drug Therapy requiring intensive monitoring for toxicity (Heparin, Nitro, Insulin, Cardizem)? @ -No Were any procedures done? @ -No Diagnosis/symptom? @ -[Knee pain Acute, or Chronic, or Acute on Chronic? @ -Acute on chronic Uncomplicated (without systemic symptoms) or Complicated (systemic symptoms)? @ -Default Side effects of treatment? @ -No Exacerbation, Progression, or Severe Exacerbation? @ -No Poses a threat to life or bodily function? How? (Chest pain, [place], [place], pneumonia, PE, COPD, DKA, ARF, appy, cholecystitis, CVA, Diverticulitis, Homicidal, Carmela cidal, threat to staff... and all critical care pts) @ -[Low risk at this time Disposition Clinical Impression: Knee pain Disposition: HOME SELF-CARE Condition: Good Instructions (If sedation given, give patient instructions): Knee Pain (ED) Additional Instructions: Please contact your orthopedic surgeon at [facility] regarding both the acute pain as well as fever. Is patient prescribed a controlled substance at d/c from ED?: No Referrals: Bar Bender DO [Primary Care Provider] - 1-2 days Time of Disposition: 05:02
--- NOTE | 2024-06-28 04:49 | XR ---
EXAM: XR Left Knee CLINICAL HISTORY: ITS.REASON XR Reason: pain TECHNIQUE: 2 views of the left knee. COMPARISON: 05/16/2019 IMPRESSION: Postop changes. No acute findings.
[2024-06-28] MEDS: HYDROmorphone 1 MG/ML 1 ML SYRINGE IM STA (05:19)
[2024-06-28] MEDS: ZINC OXIDE PASTE (Z-GUARD) 1 APPLIC TOPICAL ONE (05:19)
[2024-06-28 05:30] VITALS: TEMP 101.2
[2024-06-28 05:55] VITALS: BP 118/71; PULSE 91
== END 2024-06-28 06:38 | disposition home or self-care (01) ==
LOC: EC 04:00
CPT/HCPCS: 96372; 99284

== ENCOUNTER → 2024-07-21 | Outpatient (CLI) | payer MEDICAID, MEDICARE ==
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
== END | disposition home or self-care (01) ==
LOC: RADCTMAIN 08:18
PROVIDERS: ATTEND Orthopaedic Surgery

== ENCOUNTER 2024-10-03 03:13 | Emergency (ER) | payer MEDICARE, MEDICAID ==
--- NOTE | 2024-10-03 03:38 | ED ---
General Adult HPI - General Chief complaint: Recheck/Abnormal Lab/Rx Stated complaint: Abnormal Labs, Low Hemoglobin Time Seen by Provider: 10/03/24 03:20 Source: patient, RN notes reviewed, old records reviewed Mode of arrival: wheelchair Limitations: no limitations - History of Present Illness Initial comments: 54-year-old male with chief complaint of anemia. Patient had outpatient laboratory testing and was noted to have a hemoglobin 7.2. Patient states he is currently being treated for left knee infection has a wound VAC on the left knee and is currently receiving IV antibiotics through left upper extremity PICC. No fever. He does have history of mechanical heart valve, currently on Coumadin. And has dealt with recent issues with anemia. Denies melena. - Related Data Home Medications Medication Instructions Recorded Confirmed Ascorbic Acid [Vitamin C] 500 mg PO DAILY 03/02/17 07/25/24 Omeprazole 40 mg PO BID 03/02/17 07/25/24 Metoprolol Tartrate [Lopressor] 12.5 mg PO BID 04/22/23 07/25/24 Cholecalciferol [Vitamin D3 (125 125 mcg PO DAILY 07/08/23 07/25/24 Mcg = 5000 Iu)] Cyanocobalamin (Vitamin B-12) 1,000 mcg PO DAILY 07/08/23 07/25/24 [Vitamin B-12] HYDROcodone/APAP 10-325MG [[place] 1 tab PO Q4H PRN 07/08/23 07/25/24 10-325] Meloxicam [Mobic] 15 mg PO DAILY 07/08/23 07/25/24 Warfarin [Coumadin] 2.5 mg PO MOWEFRSA@2100 07/08/23 07/25/24 Warfarin [Coumadin] 5 mg PO SUTUTH@2100 07/08/23 07/25/24 Atorvastatin [Lipitor] 40 mg PO HS 07/25/24 07/25/24 Enoxaparin [Lovenox] 100 mg SQ DAILY 07/25/24 07/25/24 Allergies Allergy/AdvReac Type Severity Reaction Status Date / Time Cephalosporins Allergy Unknown Verified 10/03/24 03:17 nafcillin AdvReac Unknown Verified 10/03/24 03:18 phenobarbital AdvReac Hyperactivi Verified 10/03/24 03:17 ty testosterone AdvReac Joint Pain Verified 10/03/24 03:17 with Injection only Review of Systems ROS Statement: Those systems with pertinent positive or pertinent negative responses have been documented in the HPI. ROS Other: All systems not noted in ROS Statement are negative. 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 CPAP use. Hx DVT right leg 2 yrs ago. Hx pneumonia a long time ago. "Poor memory.", History of Any Multi-Drug Resistant Organisms: None Reported Past Surgical History: Back Surgery, Bariatric Surgery, Bladder Surgery, Cardiac Valve Replacement, Joint Replacement, Orthopedic Surgery Additional Past Surgical History / Comment(s): L TKA, Left knee scope X 2, Right knee pinning, GASTRIC BAND SURGERY, aortic valve replacement with mechanical valve, repair of arterial aneurysm right radial arteryleft knee repl, bone marrow biopsy 07/07/23 Past Anesthesia/Blood Transfusion Reactions: Postoperative Nausea & Vomiting (PONV) Past Psychological History: No Psychological Hx Reported Smoking Status: Never smoker Past Alcohol Use History: Occasional Past Drug Use History: None Reported - Past Family History Mother Additional Family Medical History / Comment(s): B/L knee replacement. Father Family Medical History: Diabetes Mellitus Additional Family Medical History / Comment(s): Cardiac issues. General Exam Limitations: no limitations General appearance: alert, in no apparent distress Head exam: Present: atraumatic, normocephalic Eye exam: Present: normal appearance, PERRL ENT exam: Present: normal exam Neck exam: Present: normal inspection. Absent: tenderness, meningismus Respiratory exam: Present: normal lung sounds bilaterally. Absent: respiratory distress, wheezes Cardiovascular Exam: Present: normal rhythm, bradycardia, systolic murmur GI/Abdominal exam: Present: soft. Absent: distended, tenderness Neurological exam: Present: alert, oriented X3 Psychiatric exam: Present: normal affect, normal mood Skin exam: Present: warm, dry, intact, pallor Course Vital Signs 10/03/24 03:15 Temperature 97.9 F Pulse Rate 47 L Respiratory 18 Rate Blood Pressure 102/64 O2 Sat by Pulse 98 Oximetry Medical Decision Making - Medical Decision Making Was pt. sent in by a medical professional or institution (Dr., PA, SYSTEM ENGINEER, urgent care, hospital, or detention...) When possible be specific @ -No Did you speak to anyone other than the patient for history (EMS, parent, family, police, friend...)? What history was obtained from this source @ -No Did you review nursing and triage notes (agree or disagree)? Why? @ -I reviewed and agree with nursing and triage notes Were old charts reviewed (outside hosp., previous admission, EMS record, old EKG, old radiological studies, urgent care reports/EKG's, detention records)? Report findings @ -No old charts were reviewed Differential Diagnosis: Anemia of chronic disease, hemolytic anemia, acute blood loss anemia EKG interpreted by me (3pts min.). @ -As above X-rays interpreted by me (1pt min.). @ -None done CT interpreted by me (1pt min.). @ -None done U/S interpreted by me (1pt. min.). @ -None done What testing was considered but not performed or refused? (CT, X-rays, U/S, labs)? Why? @ -None What meds were considered but not given or refused? Why? @ -None Did you discuss the management of the patient with other professionals (professionals i.e. PRINCE Schilling, SYSTEM ENGINEER, lab, RT, psych nurse, social problems specialist, school examiner, teacher, police commanding officer, case picker)? Give summary @ -No Was smoking cessation discussed for >3mins.? @ -No Was critical care preformed (if so, how long)? @ -No Were there social determinants of health that impacted care today? How? (Homelessness, low income, unemployed, alcoholism, drug addiction, transportation, low edu. Level, literacy, decrease access to med. care, longterm, rehab)? @ -No Was there de-escalation of care discussed even if they declined (Discuss DNR or withdrawal of care, Hospice)? DNR status @ -No What co-morbidities impacted this encounter? (DM, HTN, Smoking, COPD, CAD, Cancer, CVA, ARF, Chemo, Hep., AIDS, mental health diagnosis, sleep apnea, morbid obesity)? @ -On Coumadin history of mechanical heart valve, chronic anemia Was patient admitted / discharged? Hospital course, mention meds given and route, prescriptions, significant lab abnormalities, going to OR and other pertinent info. @ -Repeat hemoglobin is 8, not requiring transfusion. Patient has no other complaints. Stable for discharge with close outpatient follow-up. Undiagnosed new problem with uncertain prognosis? @ -No Drug Therapy requiring intensive monitoring for toxicity (Heparin, Nitro, Insulin, Cardizem)? @ -No Were any procedures done? @ -No Diagnosis/symptom? @ -Anemia Acute, or Chronic, or Acute on Chronic? @ -Acute on chronic Uncomplicated (without systemic symptoms) or Complicated (systemic symptoms)? @ -Default Side effects of treatment? @ -No Exacerbation, Progression, or Severe Exacerbation? @ -No Poses a threat to life or bodily function? How? (Chest pain, [place], [place], pneumonia, PE, COPD, DKA, ARF, appy, cholecystitis, CVA, Diverticulitis, Homicidal, Carmela cidal, threat to staff... and all critical care pts) @ -Low risk at this time - Lab Data Result diagrams: 10/03/24 04:05 10/03/24 04:05 Lab Results 10/03/24 10/03/24 10/03/24 Range/Units 04:05 04:05 04:05 WBC 8.1 (3.8-10.6) k/uL RBC 2.64 L (4.30-5.90) m/uL Hgb 8.0 L (13.0-17.5) gm/dL Hct 24.3 L (39.0-53.0) % MCV 91.9 (80.0-100.0) fL MCH 30.3 (25.0-35.0) pg MCHC 33.0 (31.0-37.0) g/dL RDW 17.1 H (11.5-15.5) % Plt Count 343 (150-450) k/uL MPV 7.3 Neutrophils % 67 % Lymphocytes % 18 % Monocytes % 6 % Eosinophils % 7 % Basophils % 0 % Neutrophils # 5.4 (1.3-7.7) k/uL Lymphocytes # 1.5 (1.0-4.8) k/uL Monocytes # 0.5 (0-1.0) k/uL Eosinophils # 0.6 (0-0.7) k/uL Basophils # 0.0 (0-0.2) k/uL Hypochromasia Moderate Poikilocytosis Slight Anisocytosis Slight PT 19.7 H (10.0-12.5) sec INR 1.9 H (<1.2) APTT 38.8 H (22.0-30.0) sec Sodium 136 L (137-145) mmol/L Potassium 4.2 (3.5-5.1) mmol/L Chloride 102 (98-107) mmol/L Carbon Dioxide 27 (22-30) mmol/L Anion Gap 7 mmol/L BUN 25 H (9-20) mg/dL Creatinine 0.82 (0.66-1.25) mg/dL Est GFR (CKD-EPI)AfAm >90 (>60 ml/min/1.73 sqM) Est GFR (CKD-EPI)NonAf >90 (>60 ml/min/1.73 sqM) Glucose 104 H (74-99) mg/dL Calcium 8.4 (8.4-10.2) mg/dL Total Bilirubin 1.0 (0.2-1.3) mg/dL AST 18 (17-59) U/L ALT 14 (4-49) U/L Alkaline Phosphatase 109 (38-126) U/L Total Protein 7.1 (6.3-8.2) g/dL Albumin 3.6 (3.5-5.0) g/dL Disposition Clinical Impression: Anemia Disposition: HOME SELF-CARE Condition: Fair Is patient prescribed a controlled substance at d/c from ED?: No Referrals: Bar Bender DO [Primary Care Provider] - 1-2 days Time of Disposition: 04:57
[2024-10-03 04:15] LABS: Anisocytosis Slight; Basophils % (A) 0 %; Eosinophils # (A) 0.6 k/uL (0-0.7); Eosinophils % (A) 7 %; HCT 24.3 % (39.0-53.0); Hypochromasia Moderate; Lymphocytes # (A) 1.5 k/uL (1.0-4.8); Lymphocytes % (A) 18 %; MCH 30.3 pg (25.0-35.0); MCV 91.9 fL (80.0-100.0); Mean Platelet Volume 7.3; Monocytes # (A) 0.5 k/uL (0-1.0); Monocytes % (A) 6 %; Neutrophils # (A) 5.4 k/uL (1.3-7.7); Neutrophils % (A) 67 %; Platelet Count 343 k/uL (150-450); Poikilocytosis Slight; RBC 2.64 m/uL (4.30-5.90); RDW 17.1 % (11.5-15.5); WBC 8.1 k/uL (3.8-10.6)
[2024-10-03 04:40] LABS: INR 1.9 (<1.2); Partial Thromboplastin Time 38.8 sec (22.0-30.0); Prothrombin Time 19.7 sec (10.0-12.5)
[2024-10-03 04:50] LABS: ALT 14 U/L (4-49); AST 18 U/L (17-59); African American GFR (CKD) >90 (>60 ml/min/1.73 sqM); Albumin 3.6 g/dL (3.5-5.0); Alkaline Phosphatase 109 U/L (38-126); Anion Gap 7 mmol/L; Blood Urea Nitrogen 25 mg/dL (9-20); Calcium 8.4 mg/dL (8.4-10.2); Carbon Dioxide 27 mmol/L (22-30); Chloride 102 mmol/L (98-107); Glucose 104 mg/dL (74-99); Non-African American GFR(CKD) >90 (>60 ml/min/1.73 sqM); Potassium 4.2 mmol/L (3.5-5.1); Sodium 136 mmol/L (137-145); Total Protein 7.1 g/dL (6.3-8.2)
[2024-10-03 05:27] VITALS: BP 108/60; PULSE 56; RESP 20; TEMP 98
== END 2024-10-03 05:07 | disposition home or self-care (01) ==
LOC: EC 03:13
DX: D64.9 Anemia, unspecified (principal); Z88.0 Allergy status to penicillin; Z88.1 Allergy status to other antibiotic agents; Z88.8 Allergy status to other drugs, medicaments and biological substances; Z95.2 Presence of prosthetic heart valve
CPT/HCPCS: 36415; 80053; 85025; 85610; 85730; 86850; 86900; 86901; 99285

== ENCOUNTER → 2024-12-25 | Outpatient (CLI) | payer MEDICAID, MEDICARE ==
--- NOTE | 2024-12-25 15:35 | CT ---
EXAMINATION TYPE: CT chest wo/w con CT DLP: 850 mGycm, Automated exposure control for dose reduction was used. DATE OF EXAM: 12/25/2024 3:23 PM COMPARISON: CT chest 04/19/2023, CT chest abdomen and pelvis 04/19/2023, CTA chest 03/10/2020, 05/26/2019 CLINICAL INDICATION:Male, 54 years old with history of R91.8 Left sided pulmonary nodule; PHH, Left L mary pulmonary nodule, follow up TECHNIQUE: Multiple axial images were obtained through the chest before and after the uneventful admi nistration of 100 cc of Isovue-300 intravenously. Coronal and sagittal reformats reviewed. FINDINGS: LUNGS/ PLEURA: No pleural effusion, pneumothorax, focal consolidation. Minimal bilateral lower lobe d ependent subsegmental atelectasis. Stable posterior right upper lobe 2.4 mm pulmonary nodule dating back to 2018 and considered benign (series 10, image 13). No new or enlarging pulmonary nodules. AIRWAY: Patent and unremarkable.. HEART: Size within normal limits.No pericardial effusion. Mild coronary artery calcifications present . Post aortic valvular replacement. MEDIASTINUM: No gross evidence of adenopathy. VASCULATURE: No aortic aneurysm. Left PICC line with distal tip extending into the azygous vein. MUSCULOSKELETAL: No acute osseous abnormalities. Sternotomy wires. Postsurgical changes with screw fi xation involving the T12 and visualized L1 vertebral bodies. Multilevel Schmorl's nodes. SOFT TISSUES/LYMPH NODES: Mild bilateral gynecomastia. LOWER NECK: No significant findings. UPPER ABDOMEN: Small hiatal hernia with post gastric lap band changes. Circumferential wall thickenin g of the distal esophagus likely related to esophagitis/GERD. IMPRESSION: 1. No acute thoracic process. 2. Stable right upper lobe 2.4 mm pulmonary nodule dating back to 2018 considered benign. No new or e nlarging pulmonary nodules. 3. Left PICC line with distal tip extending into the azygous vein. Consider retraction of 2 cm. [facility], , 12/25/2024 3:33 PM
== END | disposition home or self-care (01) ==
LOC: RADCTMAIN 14:06
PROVIDERS: ATTEND Family Medicine
DX: R91.1 Solitary pulmonary nodule (principal); J98.11 Atelectasis
CPT/HCPCS: 71270; Q9967